=== PATIENT | male | born 1960 | race Caucasian/White ===

== ENCOUNTER 2021-03-17 23:36 | Inpatient (IN) | payer OTHER, SELFPAY ==
[2021-03-17] VITALS (7 sets, daily range): BP systolic 107–114; BP diastolic 78–79; PULSE 118–125; RESP 24–37; TEMP 36.6; O2SAT 69–87
--- NOTE | ~2021-03-17 | XR_ITS ---
XR chest 1V portable 04/02/2021 05:16 Indication: Respiratory failure Procedure: AP portable chest Comparison: Comparison to multiple prior studies sequentially, with oldest reviewed study dated 03/29. Findings: Tracheostomy tube present. Heart size is normal. No significant change to bilateral airspac e disease, right greater than left. No significant change to bandlike opacity in the right midlung. P ossible small effusions. No pneumothorax. No acute osseous abnormality. Impression: 1: No significant interval change. Reviewed, dictated and finalized at location A. Impression: 1: No significant interval change.
--- NOTE | ~2021-03-17 | XR_ITS ---
EXAMINATION: XR chest 1V portable EXAM DATE: 03/27/2021 05:15 INDICATION: EXAMINATION: XR chest 1V portable EXAM DATE: 03/27/2021 05:15 INDICATION: Pneumonia. Respiratory failure. TECHNIQUE: Portable AP frontal chest x-ray was obtained. Comparison is made to prior examination from 03/25, 03/26. FINDINGS: Endotracheal tube tip is 3-4 centimeters above the damián. There is a right IJ venous line in position. There is a nasogastric tube seen with tip collimated off the study, but below the left hemidiaphragm. There is moderate right upper lobe airspace disease, smaller amount in lower lung zones, consistent w ith pneumonia. There is likely right apical bullous disease. Small to moderate right, small left pleu ral effusions. There is no pneumothorax suspected. Borderline enlarged heart size. The bones and soft tissues are unremarkable. Stable or mild interval improvement in right lung opacity compared to yesterday. IMPRESSION: 1. Line and tube(s) in position. 2. Moderate right upper lobe predominant pneumonia. 3. Pleural effusions right greater than left. Reviewed, dictated and finalized at location A.
--- NOTE | ~2021-03-17 | XR_ITS ---
XR chest 1V portable 04/01/2021 05:28 Indication: Respiratory failure Procedure: AP portable chest Comparison: Comparison to multiple prior studies sequentially, with oldest reviewed study dated 03/28. Findings: Borderline heart size. Extensive bilateral airspace disease with bandlike consolidation rig ht midlung zone. Right pleural effusion unchanged. Tracheostomy tube present. Right IJ central line t ip in the SVC. No pneumothorax. Impression: 1: No significant change to extensive bilateral consolidation allowing for difference in technique. D ifferential diagnosis includes pneumonia and/or edema. Reviewed, dictated and finalized at location A. Impression: 1: No significant change to extensive bilateral consolidation allowing for diff erence in technique. Differential diagnosis includes pneumonia and/or edema.
--- NOTE | ~2021-03-17 | XR_ITS ---
XR chest 1V portable 03/30/2021 05:36 Indication: Respiratory failure Procedure: AP portable chest Comparison: Comparison to multiple prior studies sequentially, with oldest reviewed study dated 03/26. Findings: Endotracheal tube tip 4.9 cm above the damián. NG tube in the stomach. Central line tip in the SVC. Unchanged bandlike opacity right mid lung, likely atelectasis/scarring and/or loculated effu sharmila. Heart size is normal. Bilateral diffuse interstitial infiltrates. Layering right pleural effusi on. No pneumothorax. Overall, no significant change. Impression: 1: Diffuse bilateral interstitial infiltrates which may represent edema or pneumonia. Unchanged bandl lisa opacity right midlung, most likely combination of loculated effusion, atelectasis and/or scarring . Reviewed, dictated and finalized at location A. Impression: 1: Diffuse bilateral interstitial infiltrates which may represent edema or pneu monia. Unchanged bandlike opacity right midlung, most likely combination of loc ulated effusion, atelectasis and/or scarring.
--- NOTE | ~2021-03-17 | XR_ITS ---
XR chest 1V portable 03/31/2021 05:25 Indication: Respiratory failure Procedure: AP portable chest Comparison: Comparison to multiple prior studies sequentially, with oldest reviewed study dated 03/27. Findings: Interval placement of tracheostomy tube. Right IJ central line tip in the SVC. Stable exten sive bilateral airspace disease with band like consolidation right mid lung. Right pleural effusion. Impression: 1: Stable bilateral airspace consolidation, right greater than left, consistent with pneumonia. 2: Small pleural effusions. Reviewed, dictated and finalized at location A. Impression: 1: Stable bilateral airspace consolidation, right greater than left, consistent with pneumonia. 2: Small pleural effusions.
--- NOTE | ~2021-03-17 | XR_ITS ---
EXAMINATION: XR chest 1V portable EXAM DATE: 03/24/2021 05:15 INDICATION: Respiratory failure. TECHNIQUE: Portable AP frontal chest x-ray was obtained. Comparison is made to prior examination from 03/22, 03/23. FINDINGS: Endotracheal tube tip is 4 centimeters above the damián. There is a right IJ venous line i n position. There is a nasogastric tube seen with tip collimated off the study, but below the left he midiaphragm. There is moderate right upper lobe airspace disease, smaller amount in lower lung zones, consistent w ith pneumonia. There may be right apical bullous disease. Small to moderate right, small left pleural effusions. There is no pneumothorax suspected. Borderline heart size. The bones and soft tissues are unremarkable. There is no significant interval change. IMPRESSION: 1. Line and tube(s) in position. 2. Moderate right upper lobe predominant pneumonia. 3. Pleural effusions right greater than left. Reviewed, dictated and finalized at location A.
--- NOTE | ~2021-03-17 | XR_ITS ---
XR chest 1V portable 03/29/2021 05:15 Indication: Respiratory failure. Pneumonia. Procedure: AP portable chest Comparison: Comparison to multiple prior studies sequentially, with oldest reviewed study dated 05/25. Findings: Endotracheal tube 5.4 cm above the damián. Tube in the stomach. Right IJ central line tip i n the SVC. Heart size normal. Extensive bilateral airspace disease. Bilateral pleural effusions, righ t greater than left. No pneumothorax. Impression: 1: Extensive bilateral airspace disease unchanged, consistent with pneumonia. 2: Bilateral pleural effusions, right greater than left. Reviewed, dictated and finalized at location A. Impression: 1: Extensive bilateral airspace disease unchanged, consistent with pneumonia. 2: Bilateral pleural effusions, right greater than left.
--- NOTE | ~2021-03-17 | XR_ITS ---
EXAMINATION: XR chest 1V portable EXAM DATE: 03/25/2021 05:19 INDICATION: Respiratory failure. TECHNIQUE: Portable AP frontal chest x-ray was obtained. Comparison is made to prior examination from 03/23, 03/24. FINDINGS: Endotracheal tube tip is 4 centimeters above the damián. There is a right IJ venous line i n position. There is a nasogastric tube seen with tip collimated off the study, but below the left he midiaphragm. There is moderate right upper lobe airspace disease, smaller amount in lower lung zones, consistent w ith pneumonia. There may be right apical bullous disease. Small to moderate right, small left pleural effusions. There is no pneumothorax suspected. Borderline heart size. The bones and soft tissues are unremarkable. Mild interval improvement in right lung opacity compared to yesterday. IMPRESSION: 1. Line and tube(s) in position. 2. Moderate right upper lobe predominant pneumonia. 3. Pleural effusions right greater than left. Reviewed, dictated and finalized at location A.
--- NOTE | ~2021-03-17 | XR_ITS ---
EXAMINATION: XR chest 1V portable EXAM DATE: 03/22/2021 05:18 INDICATION: Shortness of breath. TECHNIQUE: Portable AP frontal chest x-ray was obtained. Comparison is made to prior examination from 03/21, 03/20. FINDINGS: Endotracheal tube tip is 4 centimeters above the damián. There is a right IJ venous line i n position. There is a nasogastric tube seen with tip collimated off the study, but below the left he midiaphragm. Again there is extensive right upper lobe airspace disease, smaller amount in lower lung zones, consi stent with pneumonia. There may be right apical bullous disease. Small to moderate right, small left pleural effusions. There is no pneumothorax suspected. The cardiomediastinal silhouette is promine nt but magnified on this AP technique. The bones and soft tissues are unremarkable. There is no significant interval change compared to prior exam. IMPRESSION: 1. Line and tube(s) in position. 2. Extensive right upper lobe predominant pneumonia. 3. Pleural effusions right greater than left. Reviewed, dictated and finalized at location A.
--- NOTE | ~2021-03-17 | XR_ITS ---
EXAMINATION: XR abdomen NG/feed tube rechec EXAM DATE: 03/24/2021 14:23 INDICATION: Orogastric tube recheck. TECHNIQUE: Frontal projection(s) of the abdomen for interpretation. Comparison is made to prior exami nation from 03/18/2021. FINDINGS: Feeding tube tip and side-port both project over gastric bubble, expected position. Modera te amount of upper abdominal colonic stool and gas. Pleural effusions and airspace disease. Endotrach eal tube and right IJ line. IMPRESSION: 1. Feeding tube in position. Reviewed, dictated and finalized at location A.
--- NOTE | ~2021-03-17 | XR_ITS ---
EXAMINATION: XR chest ET placement, XR abdomen NG/feed tube insert DATE: 03/18/2021 05:21 INDICATION: Endotracheal tube placement. Nasogastric tube placement. TECHNIQUE: 1. Frontal view of the chest was obtained. 2. AP semiupright view of the abdomen was obtained. COMPARISON: Chest radiograph and CT dated 03/18/[address] dated 12/24/2004 FINDINGS: Chest: Endotracheal tube tip 4.1 cm above the damián. Right internal jugular central venous catheter with di stal tip in the midsuperior vena cava. Emphysema with bullous changes at the right apex. Dense consolidation with air bronchograms in the ri ght upper lobe and in the medial right lower lobe. Mild streaky opacities at the bilateral lung bases . Calcified left upper lobe nodule consistent with old granulomatous disease. No pneumothorax or pleu ral effusion. The cardiomediastinal silhouette is normal. Abdomen: Nasogastric tube tip in the body of the stomach with proximal side-port near the gastroesophageal lance ction. Large amount of stool scattered throughout the colon. No dilated loops of gas-filled small bow el to suggest obstruction. Chronic rim calcified splenic lesion below the left hemidiaphragm likely s equela of old splenic insult. IMPRESSION: 1. Lines and tubes in expected position. Consider advancement of the nasogastric tube by 3-[address] fiordaliza the proximal side-port below the level of the gastroesophageal junction. 2. Dense consolidation in the right upper lobe and less dense opacities in the bilateral lower lung z ones consistent with multifocal pneumonia. 3. Emphysema. Reviewed, dictated and finalized at location A. IMPRESSION: 1. Lines and tubes in expected position. Consider advancement of the nasogastri c tube by 3-[address] the proximal side-port below the level of the gastroe sophageal junction. 2. Dense consolidation in the right upper lobe and less dense opacities in the bilateral lower lung zones consistent with multifocal pneumonia. 3. Emphysema.
--- NOTE | ~2021-03-17 | XR_ITS ---
EXAMINATION: XR chest 1V portable EXAM DATE: 03/26/2021 05:49 INDICATION: Pneumonia. Respiratory failure. TECHNIQUE: Portable AP frontal chest x-ray was obtained. Comparison is made to prior examination from 03/24, 03/23. FINDINGS: Endotracheal tube tip is 4-5 centimeters above the damián. There is a right IJ venous line in position. There is a nasogastric tube seen with tip collimated off the study, but below the left hemidiaphragm. There is moderate right upper lobe airspace disease, smaller amount in lower lung zones, consistent w ith pneumonia. There is likely right apical bullous disease. Small to moderate right, small left pleu ral effusions. There is no pneumothorax suspected. Borderline enlarged heart size. The bones and soft tissues are unremarkable. Mild interval improvement in right lung opacity compared to yesterday. IMPRESSION: 1. Line and tube(s) in position. 2. Moderate right upper lobe predominant pneumonia, mild improvement. 3. Pleural effusions right greater than left. Reviewed, dictated and finalized at location A.
--- NOTE | ~2021-03-17 | XR_ITS ---
EXAMINATION: XR chest 1V portable EXAM DATE: 03/28/2021 06:00 INDICATION: pneumonia EXAMINATION: XR chest 1V portable EXAM DATE: 03/28/2021 06:00 INDICATION: EXAMINATION: XR chest 1V portable EXAM DATE: 03/28/2021 06:00 INDICATION: Pneumonia. Respiratory failure. TECHNIQUE: Portable AP frontal chest x-ray was obtained. Comparison is made to prior examination from 03/26, 03/27. FINDINGS: Endotracheal tube tip is 4 centimeters above the damián. There is a right IJ venous line i n position. There is a nasogastric tube seen with tip collimated off the study, but below the left he midiaphragm. There is moderate right upper lobe airspace disease, smaller amount in lower lung zones, consistent w ith pneumonia. There is likely right apical bullous disease. Small to moderate right, small left pleu ral effusions. There is no pneumothorax suspected. Borderline enlarged heart size. The bones and soft tissues are unremarkable. There is no significant interval change. IMPRESSION: 1. Line and tube(s) in position. 2. Moderate right upper lobe predominant pneumonia. Pleural effusions right greater than left. Reviewed, dictated and finalized at location A.
--- NOTE | ~2021-03-17 | US_ITS ---
EXAMINATION: US art doppler w no ROJAS EXAM DATE: 03/19/2021 15:21 INDICATION: Bilateral lower extremity mottling. Intubated. TECHNIQUE: Segmental pressures and plethysmographic and Doppler waveforms of the brachial and lower e xtremity arteries were obtained. There is no prior study for comparison. FINDINGS: Right and left brachial artery pressures of 94 mm Hg and 114 mm Hg, respectively, are concordant (nor mal difference <= 30 mmHg). RIGHT LEG: The ankle-brachial index (MASOUD) is 1.25 (normal >= 0.9-1). The great toe-brachial index (TBI) is 0.11 (normal >= 0.65). The lower extremity ratios, segmental pressure gradients as follows; Dorsalis pedis: 1.07 (122 mmHg). Posterior tibial: 1.25 (142 mmHg). (Normal gradients <= 20-30 mmHg between adjacent levels on the same leg or the same levels on the two legs). Arterial waveforms are monophasic DP, otherwise biphasic. LEFT LEG: The ankle-brachial index (MASOUD) is 1.20 (normal >= 0.9-1). The great toe-brachial index (TBI) is 0.79 (normal >= 0.65). The lower extremity ratios, segmental pressure gradients as follows; Dorsalis pedis: 0.89 (102 mmHg). Posterior tibial: 1.20 (137 mmHg). (Normal gradients <= 20-30 mmHg between adjacent levels on the same leg or the same levels on the two legs). Arterial waveforms are monophasic DP, otherwise biphasic. IMPRESSION: 1. Right ankle-brachial index 1.25, normal. 2. Left ankle-brachial index 1.20, normal. 3. Severely decreased right toe brachial index. Reviewed, dictated and finalized at location B.
--- NOTE | ~2021-03-17 | XR_ITS ---
EXAMINATION: XR chest 1V portable EXAM DATE: 03/23/2021 05:25 INDICATION: Respiratory failure. TECHNIQUE: Portable AP frontal chest x-ray was obtained. Comparison is made to prior examination from 03/21, 03/22. FINDINGS: Endotracheal tube tip is 5 centimeters above the damián. There is a right IJ venous line i n position. There is a nasogastric tube seen with tip collimated off the study, but below the left he midiaphragm. Again there is moderate right upper lobe airspace disease, smaller amount in lower lung zones, consis tent with pneumonia. There may be right apical bullous disease. Small to moderate right, small left p leural effusions. There is no pneumothorax suspected. Cardiomediastinal silhouette is normal. The bones and soft tissues are unremarkable. Compared to previous examination, mild improvement in the airspace disease and normalization of cardi ac silhouette. IMPRESSION: 1. Line and tube(s) in position. 2. Moderate right upper lobe predominant pneumonia. 3. Pleural effusions right greater than left. Reviewed, dictated and finalized at location A.
--- NOTE | ~2021-03-17 | XR_ITS ---
EXAMINATION: XR chest 1V portable EXAM DATE: 03/21/2021 05:33 INDICATION: Shortness of breath. TECHNIQUE: Portable AP frontal chest x-ray was obtained. Comparison is made to prior examination from 03/20/2021. FINDINGS: Endotracheal tube tip is 3-4 centimeters above the damián. There is a right IJ venous line in position. There is a nasogastric tube seen with tip collimated off the study, but below the left hemidiaphragm. Again there is extensive right upper lobe airspace disease, smaller amount in lower lung zones, consi stent with pneumonia. There may be right apical bullous disease. Small to moderate right, small left pleural effusions. There is no pneumothorax suspected. The cardiomediastinal silhouette is promine nt but magnified on this AP technique. The bones and soft tissues are unremarkable. There is no significant interval change compared to prior exam. IMPRESSION: 1. Line and tube(s) in position. 2. Extensive right upper lobe predominant pneumonia. Reviewed, dictated and finalized at location A.
--- NOTE | ~2021-03-17 | XR_ITS ---
EXAMINATION: XR chest 1V portable DATE: 03/19/2021 05:46 INDICATION: Shortness of breath TECHNIQUE: frontal view of the chest was obtained. COMPARISON: Chest radiograph dated 03/18/2021 FINDINGS: Endotracheal tube tip 4.3 cm above the damián. Right internal jugular central venous catheter with di stal tip at the midsuperior vena cava. Nasogastric tube extends below the left hemidiaphragm with di stal tip collimated off the study. Emphysema. No significant change in airspace opacity in the right upper lobe with dense consolidation with air bronchograms inferiorly along the right minor fissure. New opacities in the right lower natasha g zone suggesting small right pleural effusion with additional associated atelectasis and/or pneumoni a. Unchanged more subtle opacities in the left lower lung zone. Calcified nodule in the left upper chiquita ng zone consistent with old granulomatous disease. No pneumothorax or definitive left pleural effusio n. The cardiomediastinal silhouette is normal. Rim calcified splenic lesion again noted below the lef t hemidiaphragm. IMPRESSION: 1. Bilateral airspace opacities most prominent in the right upper lobe consistent with pneumonia. 2. New small right pleural effusion. 3. Emphysema. Reviewed, dictated and finalized at location A. IMPRESSION: 1. Bilateral airspace opacities most prominent in the right upper lobe consiste nt with pneumonia. 2. New small right pleural effusion. 3. Emphysema.
--- NOTE | ~2021-03-17 | CT_ITS ---
EXAMINATION: CTA chest PE protocol DATE: 03/18/2021 02:43 INDICATION: Dyspnea TECHNIQUE: Computed tomography (CT) pulmonary angiogram of the chest was performed with 100 mL Omnipa que-350 intravenous contrast. Additional 3D reconstructions utilizing coronal maximum intensity proje ction (MIP) were performed. Automated exposure control and iterative reconstruction technique were em ployed. The dose-length product was 830.19 mGy-cm. COMPARISON: None FINDINGS: Excellent contrast opacification of the pulmonary arteries. There is moderate streak artifact from de nse contrast in the superior vena cava and right atrium. There is also moderate scattered respiratory motion artifact most prominent in the mid to lower lung zones which decreases sensitivity in the sub segmental pulmonary arteries of the lower lungs and left lower lobar segmental pulmonary arteries. No pulmonary embolism. Small right pleural effusion. Large region of dense consolidation with air bronc hograms and without volume loss in the right upper lobe consistent with pneumonia. Additional small r egion of consolidation in the bilateral lower lobes also most likely related to pneumonia. Mild to mo derate upper lobe predominant emphysema. Calcified left upper lobe nodule consistent with old granulo matous disease. Heart size is normal. No pericardial effusion. Atherosclerotic coronary artery calcif ication. Thoracic aorta is normal in caliber with no dissection. No pathologically enlarged thoracic lymphadenopathy. Multiple splenic calcific lesions consistent with old granulomatous disease. Rim alcon cified lesion at the cephalad aspect of the spleen likely sequela of chronic splenic insult. Mild tho racic spondylosis. IMPRESSION: 1. No pulmonary embolism. Sensitivity decreased in setting of the segmental and subsegmental pulmonar y arteries in the lower lungs to primarily due to respiratory motion. 2. Multifocal pneumonia most extensive in the right upper lobe and to lesser degree in the bilateral lower lobes. 3. Small right pleural effusion. Reviewed, dictated and finalized at location A. IMPRESSION: 1. No pulmonary embolism. Sensitivity decreased in setting of the segmental and subsegmental pulmonary arteries in the lower lungs to primarily due to respira tory motion. 2. Multifocal pneumonia most extensive in the right upper lobe and to lesser de gree in the bilateral lower lobes. 3. Small right pleural effusion.
--- NOTE | ~2021-03-17 | XR_ITS ---
EXAMINATION: XR chest 1V portable DATE: 03/18/2021 00:30 INDICATION: Shortness of breath TECHNIQUE: frontal view of the chest was obtained. COMPARISON: Chest radiograph dated 01/22/2016 FINDINGS: New large region of consolidation in the right upper lobe abutting the minor fissure. The stents opac ities in the bilateral lower lung zones. Calcified left upper lobe nodule consistent with old granulo matous disease. No pleural effusion or pneumothorax. The cardiomediastinal silhouette is normal. IMPRESSION: 1. Right upper lobe consolidation consistent with pneumonia. Reviewed, dictated and finalized at location A.
--- NOTE | ~2021-03-17 | XR_ITS ---
EXAMINATION: XR chest 1V portable EXAM DATE: 03/20/2021 05:32 INDICATION: Shortness of breath. TECHNIQUE: Portable AP frontal chest x-ray was obtained. Comparison is made to prior examination from 03/19/2021. FINDINGS: Endotracheal tube tip is 3.4 centimeters above the damián. There is a right IJ venous line in position. There is a nasogastric tube seen with tip collimated off the study, but below the left hemidiaphragm. Again there is extensive right upper lobe airspace disease, smaller amount in lower lung zones, consi stent with pneumonia. Small to moderate right, small left pleural effusions. There is no pneumothor ax suspected. The cardiomediastinal silhouette is prominent but magnified on this AP technique. T he bones and soft tissues are unremarkable. There is no significant interval change compared to prior exam. IMPRESSION: 1. Line and tube(s) in position. 2. Extensive right upper lobe predominant pneumonia. Reviewed, dictated and finalized at location A.
--- NOTE | ~2021-03-17 | XR_ITS ---
XR abdomen/kub 1V 04/02/2021 05:16 Indication: Nausea and vomiting Procedure: KUB Comparison: Comparison to multiple prior studies sequentially, with oldest reviewed study dated 12/2020. Findings: Interval placement of gastric tube. Bowel gas pattern nonobstructive. Moderate colonic feca l loading. No abnormal calcifications. No acute osseous abnormality. There is left diaphragmatic calc ifications, possibly previous asbestos exposure. Impression: 1: No acute abdominal abnormality. Reviewed, dictated and finalized at location A. Impression: 1: No acute abdominal abnormality.
--- NOTE | 2021-03-17 23:43 | ECG_ITS ---
Measurements Intervals [place] Rate: 121 P: 56 VT: 132 QRS: 34 QRSD: 105 T: 57 QT: 309 QTc: 440 Interpretive Statements SINUS TACHYCARDIA BASELINE ARTIFACT- I, II, III, AVR, AVL, AVF, V1-V6 ABNORMAL ECG Electronically Signed On 03-18-2021 6:02:38 CDT by Raymon John D.O.
--- NOTE | 2021-03-17 23:50 | ED.GENADULT ---
HPI - General Adult General Chief complaint: Shortness of Breath/Dyspnea Stated complaint: SOB Time Seen by Provider: 03/17/21 23:43 Limitations: altered mental status and clinical condition History of Present Illness HPI narrative: Patient 60-year-old gentleman who presents the emergency department with chief complaint of shortness of breath. Patient reports that he started having shortness of breath this evening and is unable to provide any further history. Patient was found to have a room air pulse ox of 69% and was extremely short of breath with a respiratory rate of 36. Related Data Home Medications Medication Instructions Recorded Confirmed albuterol sulfate INHALATION 03/18/21 fluticasone propion-salmeterol INHALATION 03/18/21 03/18/21 [Wixela Inhub] prednisone 03/18/21 Allergies Allergy/AdvReac Type Severity Reaction Status Date / Time Unable to Assess Allergy Unverified 03/18/21 01:24 Review of Systems Review of Systems: ROS unobtainable: Yes unobtainable due to medical condition and unobtainable due to mental status PMFSH Comments Patient reports that he is on a water pill Otherwise not able to provide history or social history or family history due to critical condition Exam Narrative: Exam Narrative: GENERAL: Ill-appearing in severe respiratory distress. HEAD: Normocephalic, atraumatic. EYES: PERRLA and EOMI. ENT: Nares clear, no rhinorrhea or epistaxis. Mucous membranes moist. NECK: Supple. CHEST: Clear to auscultation. Severe respiratory distress. HEART: Regular rate and rhythm. No murmur heard. Normal peripheral pulses. ABDOMEN: Soft, nontender, nondistended, normal active bowel sounds. EXTREMITIES: Normal range of motion. No edema. SKIN: Warm, dry, no rash. NEURO: Sedate unable to provide history, no focal motor deficits PSYCH: Unable to obtain due to condition Course Course Emergency Course: After starting BiPAP patient is significantly improved at this time he is able to actually carry on some conversation reports that he has history of congestive heart failure but is currently not being treated by a physician. Patient reports he has had increasing shortness of breath and reports that he has had weight gain and peripheral edema. Vital Signs Vital signs: Vital Signs Pulse Rate 122 H 03/17/21 23:36 Respiratory Rate 31 H 03/17/21 23:36 Temperature 36.6 C 03/17/21 23:39 Pulse Rate 123 H 03/18/21 03:28 Respiratory Rate 28 H 03/18/21 03:28 Blood Pressure 100/74 03/18/21 03:09 Pulse Oximetry 99 03/18/21 03:09 Procedures Intubation Intubation #1: Intubation Date: 03/18/21 Intubation Time: 04:05 Time out performed: Yes sedative: Etomidate Mg Given: 20 paralytic: Succinylcholine Mg Given: 100 Laryngoscope: fiber optic video scope Tube Size (cm): 8.0 Method of Intubation: orotracheal Number of Attempts: 2 Tube Secured Depth (cm): 22 Tube Secured Location: teeth Tube Placement Confirmation: visualized tube passing through cords, equal breath sounds bilaterally, no breath sounds over epigastrium and confirmation by capnometry Patient Tolerated Procedure: well Intubation Complications: none Medical Decision Making Vital Signs Vital Signs: Vital Signs Pulse Rate 122 H 03/17/21 23:36 Respiratory Rate 31 H 03/17/21 23:36 Temperature 36.6 C 03/17/21 23:39 Pulse Rate 123 H 03/18/21 03:28 Respiratory Rate 28 H 03/18/21 03:28 Blood Pressure 100/74 03/18/21 03:09 Pulse Oximetry 99 03/18/21 03:09 Lab Data Result diagrams: 03/18/21 00:08 03/18/21 01:08 Labs: Lab Results 03/17/21 03/17/21 03/18/21 Range/Units 23:58 23:58 00:08 WBC 8.0 (4.5-10.0) K/mm3 RBC 4.79 (4.6-6.20) M/mm3 Hgb 14.1 (14.0-18.0) g/dL Hct 43.2 (42.0-52.0) % MCV 90.2 (80-100) fl MCH 29.4 (26-34) pg MCHC 3
[2021-03-17] MEDS: FUROSEMIDE INJ 40 MG/4 ML VIAL IV PUSH (23:56)
[2021-03-18] VITALS (90 sets, daily range): BP systolic 68–121; BP diastolic 55–105; PULSE 73–154; RESP 16–40; TEMP 36.3–36.9; O2SAT 90–100; BMI 27.8
[2021-03-18] MEDS: IPRATROPIUM BR 0.02% INH SOLN 0.5 MG/2.5 ML VIAL INHALATION ×6 (00:03→20:00)
[2021-03-18] MEDS: ALBUTEROL SULFATE NEB 2.5 MG/0.5 ML INH 5 MG INHALATION ×3 (00:04→03:23)
[2021-03-18 00:20] LABS: Alveolar/Arterial O2 Gradient 475.5 mmHg; Fractional Inspired Oxygen 100 %; HCO3 ABG 28.5 mEq/l (22.0-26.0); Oxygen Saturation ABG 99.1 % (95.0-100.0); Oxyhemoglobin 97.3 % THb (90.0-100.0); PCO2 ABG 57.3 mmHg (35.0-45.0); PO2 ABG 180.2 mmHg (80.0-100.0); Total Hemoglobin 14.4 g/dL (12.0-18.0); pH ABG 7.314 (7.350-7.450)
[2021-03-18 00:21] LABS: Device NON-INVASIVE VENT; Modified Allen's Test Pass; Site Drawn RIGHT RADIAL
[2021-03-18 00:22] LABS: Non-Invasive Expiratory Pressure 8 CMH2O; Non-Invasive Inspiratory Pressure 14 CMH2O; Non-Invasive Vent Rate 12 /MIN
[2021-03-18 00:25] LABS: Basophils Percent Auto 0.1 % (0.2-1.2); Eosinophils Percent Auto 0.1 % (0-4.4); Hematocrit 43.2 % (42.0-52.0); Hemoglobin 14.1 g/dL (14.0-18.0); Immature Granulocyte Absolute 0.02 K/mm3 (0.00-0.031); Immature Granulocyte Percent A 0.3 % (0-0.5); Lymphocytes Absolute Auto 0.73 K/mm3 (0.9-3.2); Lymphocytes Percent Auto 9.1 % (18.3-44.2); Mean Corpuscular HGB Conc 32.6 g/dl (32-36); Mean Corpuscular Hemoglobin 29.4 pg (26-34); Mean Corpuscular Volume 90.2 fl (80-100); Mean Platelet Volume 9.2 fl (7.4-10.4); Monocytes Absolute Auto 0.2 K/mm3 (0.1-0.6); Monocytes Percent Auto 2.5 % (2.6-8.5); Neutrophils Percent Auto 87.9 % (45.5-73.1); Platelet Count Result 268 k/mm3 (150-375); Red Blood Count 4.79 M/mm3 (4.6-6.20); Red Cell Distribution Width 15.3 % (11.5-14.5)
[2021-03-18 00:38] LABS: INR 1.3; Partial Thromboplastin Time 29.2 SECONDS (22.3-36.8); Prothrombin Time 17.1 Seconds (11.1-14.7)
[2021-03-18 01:28] LABS: Alanine Aminotransferase 29 U/L (4-50); Albumin Level 3.5 g/dL (3.5-5.1); Alkaline Phosphatase 64 U/L (38-126); Anion Gap 10 mmol/L (8-16); Aspartate Amino Transferase 48 U/L (17-59); Bilirubin,Total 0.5 mg/dL (0.2-1.3); Blood Urea Nitrogen 27 mg/dL (9-20); Calcium 8.8 mg/dL (8.4-10.2); Carbon Dioxide 28 mmol/L (22-30); Chloride 92 mmol/L (98-107); Estimated CRCL calculation 76 ml/min; Estimated Glomerular Filt Rate > 60; Glucose 89 mg/dL (75-110); Potassium 4.2 mmol/L (3.4-5.0); Sodium 130 mmol/L (137-145)
[2021-03-18 01:40] LABS: NT Pro B Type Natriuretic Pept 7560 pg/mL (5-100); Troponin I < 0.012 ng/mL (0.000-0.034)
[2021-03-18] MEDS: fentaNYL CITRATE INJ (*CRX) 100 MCG/2 ML VIAL 50 MCG IV PUSH (02:08)
[2021-03-18] MEDS: LORazepam INJ (*CRX) 2 MG/ML VIAL 0.5 MG IV PUSH ×2 (02:44→03:08)
[2021-03-18 03:09] LABS: Alveolar/Arterial O2 Gradient 383.3 mmHg; Base Excess ABG 1.6 mEq/l (+/-2.0); Fractional Inspired Oxygen 80 %; HCO3 ABG 29.5 mEq/l (22.0-26.0); Oxygen Content ABG 18.5 %vol (16.0-22.0); Oxyhemoglobin 97.1 % THb (90.0-100.0); PO2 ABG 122.6 mmHg (80.0-100.0); PO2 FiO2 Ratio Arterial Blood 1.53 %; Total Hemoglobin 13.4 g/dL (12.0-18.0); pH ABG 7.299 (7.350-7.450)
[2021-03-18 03:11] LABS: Device NON-INVASIVE VENT; Modified Allen's Test Pass; PCO2 ABG 61.4 mmHg (35.0-45.0); Site Drawn RIGHT RADIAL
[2021-03-18 03:12] LABS: Non-Invasive Expiratory Pressure 8 CMH2O; Non-Invasive Inspiratory Pressure 14 CMH2O; Non-Invasive Vent Rate 12 /MIN
[2021-03-18] MEDS: SODIUM CHLORIDE 0.9% IV 1,000 ML 999 ML IV CONT ×4 (03:27→23:30)
[2021-03-18] MEDS: RAPID SEQUENCE INTUBATION KIT 1 EACH (03:45)
[2021-03-18] MEDS: MIDAZOLAM 100MG/NS 100ML(*CRX) 100 MG/100 ML BAG IV CONT (04:32)
[2021-03-18] MEDS: FENTANYL 2,500MCG/NS250ML(*CRX 2,500 MCG/250 ML BAG IV CONT (04:35)
--- NOTE | 2021-03-18 04:43 | PC.NURSE ---
pt intubatedwith a # 8 et tube @ 0346, lip line @ 23 co2 change, lung braun diminished.
--- NOTE | 2021-03-18 05:17 | PM.IMHP ---
H&P: HPI History of Present Illness Date/Time: 03/18/21 05:17 Chief Complaint: altered mental status, sob Narrative: Patient is a 60 yo male who presented to the ED with shortness of breath since this evening. he was found to have pulse oximetry was in 69% on RA and extremely sob wit restpiratory rate of 36, he was initially on bipap however he was then eventually needed to be intubated and placed on ventilator. his cxr showed dense pneumonia on right lung. he also started being hypotensive and is getting started on levophed. he is getting admitted to the ICU for furhter evaluation and management. he is sedated and on vent. no further history could be obtained at this time. Review of Systems Review of Systems: ROS unobtainable: Yes unobtainable due to endotracheal tube, unobtainable due to medical condition and unobtainable due to mental status Meds Home Medications and Allergies Home Medications Medication Instructions Recorded Confirmed Type albuterol sulfate INHALATION 03/18/21 History fluticasone propion-salmeterol INHALATION 03/18/21 03/18/21 History [Wixela Inhub] prednisone 03/18/21 History Allergies Allergy/AdvReac Type Severity Reaction Status Date / Time Unable to Assess Allergy Unverified 03/18/21 01:24 Vital Signs Vital Signs - 24 hr 03/17/21 23:36 03/17/21 23:37 03/17/21 23:39 Temperature 98 F Pulse Rate 122 H 122 H 125 H Respiratory Rate 31 H 36 H 32 H Blood Pressure 107/78 Pulse Oximetry 69 L 87 L 03/17/21 23:40 03/17/21 23:45 03/17/21 23:46 Temperature Pulse Rate 123 H 122 H 124 H Respiratory Rate 25 H 34 H 35 H Blood Pressure 107/78 114/79 Pulse Oximetry 77 L 03/17/21 23:56 03/18/21 00:00 03/18/21 00:01 Temperature Pulse Rate 118 H 119 H 122 H Respiratory Rate 24 H 27 H 30 H Blood Pressure Pulse Oximetry 97 03/18/21 00:02 03/18/21 00:27 03/18/21 00:33 Temperature Pulse Rate 120 H 117 H 116 H Respiratory Rate 21 H 23 H 28 H Blood Pressure 121/105 H Pulse Oximetry 03/18/21 00:42 03/18/21 00:45 03/18/21 00:46 Temperature Pulse Rate 115 H 115 H 117 H Respiratory Rate 27 H 33 H 33 H Blood Pressure 97/68 L 96/66 L Pulse Oximetry 03/18/21 00:55 03/18/21 01:00 03/18/21 01:01 Temperature Pulse Rate 115 H 117 H 118 H Respiratory Rate 30 H 36 H 30 H Blood Pressure 96/66 L 111/83 Pulse Oximetry 90 03/18/21 01:15 03/18/21 01:16 03/18/21 01:27 Temperature Pulse Rate 117 H 118 H 118 H Respiratory Rate 30 H 28 H 26 H Blood Pressure 109/74 Pulse Oximetry 03/18/21 01:30 03/18/21 01:31 03/18/21 02:44 Temperature Pulse Rate 115 H 118 H 120 H Respiratory Rate 27 H 26 H 24 H Blood Pressure 100/77 116/74 93/62 L Pulse Oximetry 92 03/18/21 02:48 03/18/21 03:06 03/18/21 03:09 Temperature Pulse Rate 120 H 126 H 124 H Respiratory Rate 25 H 37 H 33 H Blood Pressure 100/74 Pulse Oximetry 99 03/18/21 03:15 03/18/21 03:16 03/18/21 03:18 Temperature Pulse Rate 122 H 122 H 120 H Respiratory Rate 39 H 32 H 29 H Blood Pressure 76/63 L 80/70 L Pulse Oximetry 03/18/21 03:23 03/18/21 03:28 03/18/21 03:30 Temperature Pulse Rate 121 H 123 H 121 H Respiratory Rate 24 H 28 H 28 H Blood Pressure Pulse Oximetry 03/18/21 03:42 03/18/21 03:45 03/18/21 03:46 Temperature Pulse Rate 116 H 112 H 117 H Respiratory Rate 20 16 21 H Blood Pressure 105/75 119/80 Pulse Oximetry 03/18/21 04:00 03/18/21 04:01 03/18/21 04:16 Temperature Pulse Rate 124 H 125 H 122 H Respiratory Rate 35 H 24 H 24 H Blood Pressure 93/79 L Pulse Oximetry 03/18/21 04:17 03/18/21 04:21 03/18/21 04:22 Temperature Pulse Rate 125 H 121 H 122 H Respiratory Rate 20 16 36 H Blood Pressure 74/63 L 68/55 L 74/62 L Pulse Oximetry 95 03/18/21 04:32 03/18/21 04:35 03/18/21 04:50 Temperature Pulse Rate 118 H 118 H 114 H Respiratory Rate 29 H 29 H 24 H Blood Pressure
[2021-03-18 05:28] LABS: Appearance Urine Clear (Clear); Bilirubin Urine Negative (Negative); Color Urine Yellow (Yellow); Glucose Urine UA Negative (Negative); Ketones Urine Negative (Negative); Leukocyte Esterase Ur Negative LEU/UL (Negative); Nitrate Urine Negative (Negative); Protein Urine Negative (Negative); Specific Grav Ur 1.015 (1.001-1.035); Urobilinogen Urine 0.2 mg/dL (<2.0); pH Urine 5.5 (5.0-9.0)
[2021-03-18 05:35] LABS: Estimated CRCL calculation 84 ml/min; Estimated Glomerular Filt Rate > 60; Lactic Acid Reflex 1.9 mmol/L (0.7-2.1)
--- NOTE | 2021-03-18 05:38 | WPDPROCEDUR ---
Procedures Central Line Placement Right IJ: Central Line Date: 03/18/21 Central Line Time: 05:39 Performed Emergently - Given emergent patient condition, temporal constraints may have precluded informed consent.: Yes Time Out Performed: Yes Patient Position: supine Patient placed on monitor/pulse ox: Yes Provider Prep: mask, sterile gown, sterile gloves, Max. sterile barrier precautions, cap and hand hygiene with conventional soap/water or alcohol based hand rub Central line prep: 2% Chlorhexidine scrub Local anesthesia used: lidocaine 1% Amount of anesthesia used (ml): 3 Sterile US Technique with sterile gel/sterile probe covers: Yes Central line lumen inserted: triple Tamazight: 7 Post Procedure: sutured in place, good blood return, all ports aspirated, flushed, capped, transparent dressing, securement product and aseptic technique maintained throughout procedure Post procedure x-ray: tip of catheter in good position and no pneumothorax seen Patient tolerated procedure: well and no complications Complications: none Additional comments: Dr Lester was present throughout the entire procedure performed to supervise.
[2021-03-18 05:39] LABS: Add Urine Microscopic? YES; Blood Urine Trace (Negative); RBC Urine 0-2 /hpf (0-2); WBC Urine 0-3 /hpf
[2021-03-18 06:18] LABS: Alveolar/Arterial O2 Gradient 546.3 mmHg; Base Excess ABG 0.5 mEq/l (+/-2.0); Carboxyhemoglobin 0.1 % THb (0-2.0); Fractional Inspired Oxygen 100 %; HCO3 ABG 28.5 mEq/l (22.0-26.0); Methemoglobin ABG 0.4 %THb (0-1.5); Oxygen Content ABG 18.6 %vol (16.0-22.0); Oxygen Saturation ABG 97.1 % (95.0-100.0); Oxyhemoglobin 96.8 % THb (90.0-100.0); PO2 ABG 105.7 mmHg (80.0-100.0); PO2 FiO2 Ratio Arterial Blood 1.06 %; Reduced Hemoglobin 2.7 %THb (0-5.0); Total Hemoglobin 13.6 g/dL (12.0-18.0)
[2021-03-18 06:19] LABS: pH ABG 7.287 (7.350-7.450)
[2021-03-18 06:20] LABS: Arterial Blood Gas Vent Mode CMV; Arterial Blood Gas Ventilator rate 16 /MIN; Device VENTILATOR; Modified Allen's Test Pass; Site Drawn RIGHT RADIAL
[2021-03-18 06:21] LABS: Arterial Blood Gas PEEP 7 cmH2O; Arterial Blood Gas Tidal Volume 450 ml
--- NOTE | 2021-03-18 06:28 | ADMGEN ---
This patient, Juvenal Link, was admitted to Intensive Care Unit-4. Patient/family oriented to hospital policies and general routines including ID bracelet, bed and alarms, visiting hours, pain management, procedures, bathroom and other care routines, personal items, smoking policy, room service/diet, and visiting hours. Information on how to activate the Rapid Response Team has been discussed. Patient/Family are encouraged to report perceived risks to care and to ask questions if they do not understand what they are told or what they should do.
[2021-03-18] MEDS: NOREPINEPHRINE 8 MG/D5W 250 ML 8 MG/250 ML BAG 18.75 MG IV CONT (06:30)
[2021-03-18] MEDS: CRASH CART LOCKS 2 EACH XX (06:31)
[2021-03-18] MEDS: CENTRAL LINE FLUSH 10 ML IV PUSH ×4 (06:31→22:35)
--- NOTE | 2021-03-18 08:25 | WPDCNINT ---
Assessment and Plan Assessment and plan (1) Acute respiratory failure: Code(s): J96.00 - Acute respiratory failure, unspecified whether with hypoxia or hypercapnia Status: Acute Assessment and Plan: Acute Respiratory failure secondary to community-acquired pneumonia and baseline COPD Continue full mechanical ventilation support to prevent hypoxemia/hypercarbia and end organ damage. ABG and CT chest reviewed and will repeat in am. Low tidal volume ventilation strategy to prevent volutrauma Increased respiratory to 22 and PEEP to 8. Wean FiO2 Add Bronchodilators Hydrocortisone (2) Community acquired pneumonia: Qualifiers: Laterality: right Lung location: unspecified part of lung Qualified Code(s): J18.9 - Pneumonia, unspecified organism Code(s): J18.9 - Pneumonia, unspecified organism Status: Acute Assessment and Plan: Currently on empiric vancomycin azithromycin and Rocephin Sputum and blood culture sent Urine Legionella and pneumococcal antigen pending (3) Suspected COVID-19 virus infection: Code(s): Z20.822 - Contact with and (suspected) exposure to COVID-19 Status: Acute Assessment and Plan: COVID-19 suspected although clinical picture not consistent SARS-CoV-2 PCR sent and results pending Patient is in Airborne, Droplet and Contact Isolation (4) Septic shock: Code(s): A41.9 - Sepsis, unspecified organism; R65.21 - Severe sepsis with septic shock Status: Acute Assessment and Plan: Patient was given 1 L saline bolus in ED and after intubation and sedation patient blood pressure dropped Patient was started on Levophed Lactate is normal I will give another 1 L of saline bolus. Continue IV fluids Continue Levophed Add hydrocortisone May need to add vasopressin (5) Elevated brain natriuretic peptide (BNP) level: Code(s): R79.89 - Other specified abnormal findings of blood chemistry Status: Acute Assessment and Plan: Suspect right heart failure from pulmonary hypertension from chronic COPD Conservative IV fluids Check echocardiogram (6) Hyponatremia: Code(s): E87.1 - Hypo-osmolality and hyponatremia Status: Acute Assessment and Plan: Normal saline Monitor sodium Additional Plan DVT prophylaxis -add Lovenox Stress ulcer prophylaxis -Pepcid Nutrition -start Tube Feeds Code Status - Full Code Total Critical Care Time - 35 minutes Due to a high probability of clinically significant, life threatening deterioration, the patient required my highest level of preparedness to intervene emergently and I personally spent this critical care time directly and personally managing the patient. This critical care time included obtaining a history; examining the patient; pulse oximetry; ordering and review of studies; arranging urgent treatment with development of a management plan; evaluation of patient's response to treatment; frequent reassessment; and discussions with other providers. It was exclusive of separately billable procedures and treating other patients and teaching time. Please see Assessment and Plan section and the rest of the note for further information on patient assessment and treatment Manager Mall Consult Note Consult date: 03/18/21 Time Seen: 07:45 HPI: Juvenal Link is a 60 year old male with unknown past medical history except COPD and CHF who presented to the emergency department last night with chief complaint of shortness of breath. His symptoms had started yesterday evening and due to respiratory distress he was unable to provide detailed history. He was found to be hypoxic tachypneic and in respiratory distress. BiPAP was tried but did not help. Patient had to be emergently intubated in the ER. Post intubation patient was sedated. Right IJ central venous catheter was placed and patient was started on Levophed History obtained from chart and Physician sign out. Pt intubated an
[2021-03-18] MEDS: ALBUTEROL SULFATE NEB 2.5 MG/0.5 ML INH INHALATION ×3 (08:35→20:00)
[2021-03-18] MEDS: SODIUM CHLORIDE 0.9% IV 1,000 ML 100 ML IV CONT ×2 (09:03→21:00)
[2021-03-18] MEDS: ENOXAPARIN 40 MG/0.4 ML SYRINGE SUB-Q (09:03)
[2021-03-18] MEDS: FAMOTIDINE 20 MG/2 ML VIAL IV PUSH ×2 (09:04→22:34)
--- NOTE | 2021-03-18 09:52 | ECG_ITS ---
Measurements Intervals [place] Rate: 129 P: SD: 0 QRS: 43 QRSD: 96 T: 54 QT: 295 QTc: 433 Interpretive Statements ATRIAL FIBRILLATION WITH RAPID VENTRICULAR RESPONSE BASELINE ARTIFACT- II, III, AVR, AVL, AVF, V1-V6 ABNORMAL ECG Electronically Signed On 03-18-2021 15:51:56 CDT by Raymon John D.O.
[2021-03-18] MEDS: AMIODARONE 150 MG/D5W 100 ML 150 MG/100 ML BAG 600 MG IV CONT (10:13)
[2021-03-18] MEDS: AMIODARONE 360 MG/D5W 200 ML 360 MG/200 ML BAG 33.33 MG IV CONT (10:14)
--- NOTE | 2021-03-18 10:47 | PCDIET ---
Suggested goal of 75mL/hr Jevity 1.2 will provide 1980kcal, 91g protein and 1331mL free water over 22 hours/day.
[2021-03-18 11:23] LABS: Alveolar/Arterial O2 Gradient 457.5 mmHg; Base Excess ABG 0.6 mEq/l (+/-2.0); Fractional Inspired Oxygen 80 %; HCO3 ABG 26.6 mEq/l (22.0-26.0); Oxygen Content ABG 17.8 %vol (16.0-22.0); Oxygen Saturation ABG 90.9 % (95.0-100.0); Oxyhemoglobin 91.6 % THb (90.0-100.0); PO2 ABG 62.5 mmHg (80.0-100.0); PO2 FiO2 Ratio Arterial Blood 0.78 %; Total Hemoglobin 13.8 g/dL (12.0-18.0); pH ABG 7.361 (7.350-7.450)
[2021-03-18 11:24] LABS: Arterial Blood Gas PEEP 8 cmH2O; Arterial Blood Gas Tidal Volume 450 ml; Arterial Blood Gas Vent Mode CMV; Arterial Blood Gas Ventilator rate 22 /MIN; Device VENTILATOR; Modified Allen's Test Pass; Site Drawn RIGHT RADIAL
[2021-03-18] MEDS: MIDAZOLAM HCL (*CRX) 2 MG/2 ML VIAL 4 MG (11:33)
[2021-03-18] MEDS: MIDAZOLAM 100MG/NS 100ML(*CRX) 100 MG/100 ML BAG 6 MG IV CONT (11:49)
[2021-03-18] MEDS: ASPIRIN 325 MG TABLET PO (11:53)
[2021-03-18] MEDS: HYDROCORTISONE SODIUM SUCCINATE 100 MG/2 ML VIAL IV PUSH ×3 (11:55→22:34)
[2021-03-18 12:27] LABS: Glucose Point of Care 79 mg/dl (65-105)
[2021-03-18] MEDS: VASOPRESSIN INJ 100 UNITS in DEXTROSE 5% 95 ML IV CONT (13:00)
[2021-03-18] MEDS: dexmedeTOMIDine 400 MCG/100 ML 400 MCG/100 ML BAG IV CONT (13:03)
[2021-03-18] MEDS: AMIODARONE 360 MG/D5W 200 ML 360 MG/200 ML BAG 16.67 MG IV CONT (15:53)
[2021-03-18] MEDS: NOREPINEPHRINE 8 MG/D5W 250 ML 8 MG/250 ML BAG 22.5 MG IV CONT (17:31)
[2021-03-18] MEDS: INSULIN ASPART (*BKC) 100 UNITS/ML SUB-Q (17:39)
[2021-03-18 18:10] LABS: Glucose Point of Care 203 mg/dl (65-105)
[2021-03-18 18:10] LABS: Glucose Point of Care 214 mg/dl (65-105)
[2021-03-18 18:42] LABS: SARS-CoV-2 RNA PCR Negative
--- NOTE | 2021-03-18 19:17 | PM.EVENT ---
Event Note Event Note Event Note: Patient admitted by hospitalist this morning. Follow-up rounding Patient remains intubated now requiring 3 sedating agents to overcome his agitation this morning He remains on IV antibiotic therapy as well as requiring vasopressors. Patient is critically ill and Anticipate patient to remain in ICU will see him in the morning.
[2021-03-18] MEDS: FENTANYL 2,500MCG/NS250ML(*CRX 2,500 MCG/250 ML BAG 17.5 MCG IV CONT (21:03)
[2021-03-18 22:17] LABS: Lactic Acid Reflex 3.2 mmol/L (0.7-2.1)
[2021-03-18] MEDS: MIDAZOLAM 100MG/NS 100ML(*CRX) 100 MG/100 ML BAG 8 MG IV CONT (22:35)
[2021-03-19] VITALS (50 sets, daily range): BP systolic 89–141; BP diastolic 41–87; PULSE 66–89; RESP 19–30; TEMP 36.2–36.8; O2SAT 90–100
--- NOTE | 2021-03-19 | ECHO_ITS ---
Patient Info Name: Juvenal Link Age: 60 years : 1960 Gender: Male Ht: 72 in Wt: 200 lbs BSA: 2.16 m2 HR: 73 bpm BP: 109 / 56 mmHg Heart Rhythm: Sinus Rhythm Technical Quality: Fair Exam Date: 03/19/2021 9:43 AM Exam Location: [facility] [place] Patient Status: Inpatient Admit Date: 03/18/2021 Staff Ordering Physician: Rashad Luna MD Manager Bakery: Karen Arnold RDCS Attending Provider: Rashad Luna MD Exam Type: CA echo doppler color flow Study Info Indications R06.00 - Dyspnea, unspecified Complete two-dimensional, color flow and Doppler transthoracic echocardiogram is performed. Summary 1. Complete two-dimensional, color flow and Doppler transthoracic echocardiogram is performed. 2. Left ventricular chamber dimension is mildly enlarged. 3. Left ventricular systolic function is severely reduced, estimated at 20-25%. 4. There is no increased left ventricular wall thickness. 5. Left ventricular septal wall motion is abnormal with septal motion related to bundle branch block. 6. The left ventricular diastolic function is grade I diastolic dysfunction. 7. Global hypokinesis of the left ventricle. 8. Right ventricular chamber dimension is severely enlarged. 9. Right ventricular systolic function is reduced. 10. Left atrial chamber dimension is mildly enlarged. 11. Right atrial chamber dimension is moderately enlarged. 12. There is moderate aortic valve sclerosis. 13. There is moderate mitral valve regurgitation. 14. There is mild to moderate tricuspid valve regurgitation. 15. Mild pulmonary hypertension, estimated pulmonary arterial systolic pressure is 39 mmHg. 16. There is mild pulmonic regurgitation. 17. The aortic root size at the sinus of Valsalva is mildly dilated. Left Ventricle Left ventricular chamber dimension is mildly enlarged. Left ventricular systolic function is severely reduced, estimated at 20-25%. There is no increased left ventricular wall thickness. Left ventricular septal wall motion is abnormal with septal motion related to bundle branch block. The left ventricular diastolic function is grade I diastolic dysfunction. Global hypokinesis of the left ventricle. Right Ventricle Right ventricular chamber dimension is severely enlarged. Right ventricular systolic function is reduced. Left Atria Left atrial chamber dimension is mildly enlarged. Right Atria Right atrial chamber dimension is moderately enlarged. Atrial Septum Intact interatrial septum visualized by color flow imaging. Aortic Valve The aortic valve is trileaflet. There is moderate aortic valve sclerosis. There is no aortic valve stenosis. There is trace aortic valve regurgitation. Pulmonic Valve The pulmonic valve is normal. There is no pulmonic valve stenosis. There is mild pulmonic regurgitation. Mitral Valve The mitral valve has thickened leaflets. There is no mitral valve stenosis. There is moderate mitral valve regurgitation. Tricuspid Valve The tricuspid valve leaflets are normal. There is no significant tricuspid valve stenosis. There is mild to moderate tricuspid valve regurgitation. Mild pulmonary hypertension, estimated pulmonary arterial systolic pressure is 39 mmHg. Pericardium/Pleural The pericardium appears normal. There is no pericardial effusion. Inferior Vena Cava Dilated inferior vena cava with <50% collapse upon inspiration consistent with elevated right atrial pressure, 15 mmHg. Aorta T
[2021-03-19 01:05] LABS: Reflex Lactic Acid Yes or No Add Lactic
[2021-03-19] MEDS: NOREPINEPHRINE 8 MG/D5W 250 ML 8 MG/250 ML BAG 46.88 MG IV CONT (01:50)
[2021-03-19] MEDS: ALBUTEROL SULFATE NEB 2.5 MG/0.5 ML INH INHALATION ×4 (03:00→20:43)
[2021-03-19] MEDS: IPRATROPIUM BR 0.02% INH SOLN 0.5 MG/2.5 ML VIAL INHALATION ×4 (03:00→20:43)
[2021-03-19 05:12] LABS: Hematocrit 38.8 % (42.0-52.0); Hemoglobin 12.4 g/dL (14.0-18.0); Mean Corpuscular Hemoglobin 28.9 pg (26-34); Mean Corpuscular Volume 90.4 fl (80-100); Mean Platelet Volume 9.5 fl (7.4-10.4); Platelet Count Result 299 k/mm3 (150-375); Red Blood Count 4.29 M/mm3 (4.6-6.20); Red Cell Distribution Width 15.1 % (11.5-14.5); White Blood Count 16.7 K/mm3 (4.5-10.0)
[2021-03-19 05:13] LABS: Lactic Acid 3.5 mmol/L (0.7-2.1)
[2021-03-19 05:24] LABS: Anion Gap 9 mmol/L (8-16); Blood Urea Nitrogen 36 mg/dL (9-20); Calcium 7.3 mg/dL (8.4-10.2); Carbon Dioxide 23 mmol/L (22-30); Chloride 96 mmol/L (98-107); Estimated CRCL calculation 64 ml/min; Estimated Glomerular Filt Rate > 60; Glucose 182 mg/dL (75-110); Potassium 4.9 mmol/L (3.4-5.0); Sodium 128 mmol/L (137-145)
[2021-03-19 05:30] LABS: INR 1.4; Prothrombin Time 17.9 Seconds (11.1-14.7)
[2021-03-19 05:31] LABS: Partial Thromboplastin Time 33.1 SECONDS (22.3-36.8)
[2021-03-19 05:52] LABS: Band Neutrophils Percent 17 % (0-6); Lymphocytes Absolute Manual 0.33 K/mm3 (1.1-4.5); Monocytes Absolute Manual 0.83 K/mm3 (0.1-0.90); Monocytes Percent Manual 5 % (3-9); Neutrophils Absolute Manual 15.53 K/mm3 (1.3-6.7); Neutrophils Percent Manual 76 % (46-73); Platelet Estimate Adequate (Adequate); Total Cells Counted 100
[2021-03-19 05:59] LABS: Alveolar/Arterial O2 Gradient 216.7 mmHg; Base Excess ABG -7.6 mEq/l (+/-2.0); Carboxyhemoglobin 0.2 % THb (0-2.0); Fractional Inspired Oxygen 50 %; Methemoglobin ABG 0.2 %THb (0-1.5); Oxygen Saturation ABG 94.7 % (95.0-100.0); Oxyhemoglobin 94.9 % THb (90.0-100.0); PCO2 ABG 48.3 mmHg (35.0-45.0); PO2 ABG 85.5 mmHg (80.0-100.0); PO2 FiO2 Ratio Arterial Blood 1.71 %; Reduced Hemoglobin 4.7 %THb (0-5.0); Total Hemoglobin 16.5 g/dL (12.0-18.0)
[2021-03-19 06:00] LABS: Arterial Blood Gas PEEP 8 cmH2O; Arterial Blood Gas Vent Mode CMV; Arterial Blood Gas Ventilator rate 22 /MIN; Device VENTILATOR; Modified Allen's Test Unable to perform; Site Drawn RIGHT RADIAL; pH ABG 7.236 (7.350-7.450)
[2021-03-19 06:01] LABS: Arterial Blood Gas Tidal Volume 450 ml
[2021-03-19] MEDS: SODIUM CHLORIDE 0.9% IV 1,000 ML 100 ML IV CONT ×2 (06:34→16:16)
[2021-03-19] MEDS: AMIODARONE 360 MG/D5W 200 ML 360 MG/200 ML BAG 16.67 MG IV CONT (06:34)
[2021-03-19 06:56] LABS: Glucose Point of Care 166 mg/dl (65-105)
[2021-03-19] MEDS: SODIUM BICARBONATE 8.4% 50 MEQ/50 ML SYRINGE (07:19)
[2021-03-19] MEDS: HYDROCORTISONE SODIUM SUCCINATE 100 MG/2 ML VIAL IV PUSH ×3 (07:19→20:26)
[2021-03-19] MEDS: CENTRAL LINE FLUSH 10 ML IV PUSH ×4 (08:06→20:26)
[2021-03-19] MEDS: NOREPINEPHRINE 8 MG/D5W 250 ML 8 MG/250 ML BAG 33.75 MG IV CONT (08:46)
[2021-03-19] MEDS: ASPIRIN 325 MG TABLET PO (08:48)
[2021-03-19] MEDS: ENOXAPARIN 40 MG/0.4 ML SYRINGE SUB-Q (08:51)
[2021-03-19] MEDS: FAMOTIDINE 20 MG/2 ML VIAL IV PUSH ×2 (08:51→20:26)
[2021-03-19 10:09] LABS: Creatine Kinase 56 U/L (55-170)
--- NOTE | 2021-03-19 10:40 | WPDINTPN ---
Progress Note: A&P Assessment and Plan (1) Acute respiratory failure: Code(s): J96.00 - Acute respiratory failure, unspecified whether with hypoxia or hypercapnia Status: Acute Assessment and Plan: Acute Respiratory failure secondary to community-acquired pneumonia and baseline COPD Continue full mechanical ventilation support to prevent hypoxemia/hypercarbia and end organ damage. ABG and chest x-ray reviewed and will repeat in am. Low tidal volume ventilation strategy to prevent volutrauma Increased respiratory to 22 and PEEP to 8. Wean FiO2 which is down to 30% today Continue Bronchodilators ,Hydrocortisone (2) Community acquired pneumonia: Qualifiers: Laterality: right Lung location: unspecified part of lung Qualified Code(s): J18.9 - Pneumonia, unspecified organism Code(s): J18.9 - Pneumonia, unspecified organism Status: Acute Assessment and Plan: Currently on empiric vancomycin doxycycline and Rocephin Sputum and blood culture sent Blood culture is growing Gram-positive cocci Urine Legionella and pneumococcal antigen pending (3) Suspected COVID-19 virus infection: Code(s): Z20.822 - Contact with and (suspected) exposure to COVID-19 Status: Acute Assessment and Plan: COVID-19 suspected in ED and PCR was ordered although clinical picture not consistent PCR came back negative and isolation discontinued (4) Septic shock: Code(s): A41.9 - Sepsis, unspecified organism; R65.21 - Severe sepsis with septic shock Status: Acute Assessment and Plan: Patient was given 1 L saline bolus in ED due to concerns of heart failure as patient elevated BNP and lower extremity edema and after intubation and sedation patient blood pressure dropped Patient was started on Levophed, and later vasopressin was added Lactate is elevated Patient has received adequate volume resuscitation and I suspect cardiogenic component to the shock. I suspect patient may have right heart failure ECHO is ordered and will consult Cardiology Patient was given another 1 L of saline bolus overnight. Continue IV fluids Continue Levophed Continue hydrocortisone Patient also converted from AFib to sinus rhythm this morning (5) Elevated brain natriuretic peptide (BNP) level: Code(s): R79.89 - Other specified abnormal findings of blood chemistry Status: Acute Assessment and Plan: Suspect right heart failure from pulmonary hypertension from chronic COPD Conservative IV fluids Pending echocardiogram (6) Hyponatremia: Code(s): E87.1 - Hypo-osmolality and hyponatremia Status: Acute Assessment and Plan: Normal saline Monitor sodium (7) Livedo reticularis: Code(s): R23.1 - Pallor Status: Acute Assessment and Plan: Likely from septic shock CK was checked and was normal Check arterial Dopplers Continue maintaining map Additional Plan DVT prophylaxis -add Lovenox Stress ulcer prophylaxis -Pepcid Nutrition -start Tube Feeds Code Status - Full Code I spoke to patient with an live by phone yesterday and he told me the patient had been feeling sick for few days. He was complaining of shortness of breath cough and also swelling in his legs. Patient states that he does has some of the prescriptions but he is not sure how regularly he takes his medications are sees doctors. Patient also has not been in touch with his son or his . His [id number] told me that he will try to get hold of their contact information and let me know. He also told me the patient does abuse drugs and especially fentanyl. Total Critical Care Time - 40 minutes Due to a high probability of clinically significant, life threatening deterioration, the patient required my highest level of preparedness to intervene emergently and I personally spent this critical care time directly and personally managing the patient. This critical care time included obtaining
--- NOTE | 2021-03-19 10:56 | PCDIET ---
Nutrition Follow-Up Complete: Nutrition Diagnosis: Inadequate oral intake related to oral intubation as evidenced by need for enteral feeding. Nutrition Goal: Patient to meet estimated nutritional needs. Goal in progress. Tube feedings held for residuals of 400-600mL, per RN. MD order to suction x 1 hour, then restart tube feeding at 20mL/hr. Reglan also added. Last recorded weight is 96 kg which is increased from last review. +I/O. Bowel Motility: No documented BM as of yet. Labs Reviewed: WBC (16.7), Hct (12.4), Hct (38.8), Glu (182), BUN (36), Na (128), Ca (7.3), Lactic Acid (3.5) Meds Noted: Versed, Levophed, NS at 100mL/hr, Vancomycin, Albuterol, Amiodarone, Rocephin, Precedex, Pepcid, Fentanyl, Atrovent Additional Notes: No documented skin breakdown. Will continue to monitor with same goal. Nutrition Monitoring and Evaluation: Follow up every Monday/Monday.
[2021-03-19] MEDS: MIDAZOLAM 100MG/NS 100ML(*CRX) 100 MG/100 ML BAG 9 MG IV CONT (10:58)
[2021-03-19] MEDS: FENTANYL 2,500MCG/NS250ML(*CRX 2,500 MCG/250 ML BAG 20 MCG IV CONT ×2 (10:59→22:22)
--- NOTE | 2021-03-19 11:13 | PM.CNCAR ---
Assessment and Plan Assessment and plan (1) Elevated brain natriuretic peptide (BNP) level: Code(s): R79.89 - Other specified abnormal findings of blood chemistry Status: Acute Assessment and Plan: likely has systolic congestive heart failure. Unknown cardiac history. Continue supportive care with pressors as need be. 2D echocardiogram with Doppler ordered and pending. Obviously he is too hypotensive to initiate any heart failure regimen at this point. (2) Community acquired pneumonia: Qualifiers: Laterality: right Lung location: unspecified part of lung Qualified Code(s): J18.9 - Pneumonia, unspecified organism Code(s): J18.9 - Pneumonia, unspecified organism Status: Acute Assessment and Plan: Appears to be strep pneumonia. Continue antibiotics (3) Septic shock: Code(s): A41.9 - Sepsis, unspecified organism; R65.21 - Severe sepsis with septic shock Status: Acute Assessment and Plan: appears to be from strep pneumonia. He does have blood cultures That are already positive. Continue antibiotics and supportive care. (4) Acute respiratory failure: Code(s): J96.00 - Acute respiratory failure, unspecified whether with hypoxia or hypercapnia Status: Acute Assessment and Plan: On the ventilator managed by ICU team (5) Hyponatremia: Code(s): E87.1 - Hypo-osmolality and hyponatremia Status: Acute Assessment and Plan: likely from volume overload. Initiate diuresis when able (6) Atrial fibrillation: Code(s): I48.91 - Unspecified atrial fibrillation Status: Acute Assessment and Plan: new onset and brief. This is likely from his acute illness. Back in sinus rhythm and off amiodarone. No need for full systemic anticoagulation at this point based on the brief episode of AF that he had History of Present Illness History of Present Illness Consult date/time: 03/19/21 11:13 Requesting physician: Wood Dias MD Consult reason: congestive heart failure Reason For Visit: Pneumonia, Respiratory Failure Narrative: date of service 03/19/2021 Reason for consultation CHF History patient is 60-year-old male whose history is predominantly obtained by reviewing the chart record. He is currently intubated and sedated. He came to the hospital because of severe shortness of breath. He was started on BiPAP but became increasingly worsen eventually required intubation. Chest x-ray is consistent with a dense lobar pneumonia and his blood cultures are positive for strep pneumonia. He is requiring a significant amount of pressors including Levophed and vasopressin as well several fluid boluses to maintain an adequate blood pressure. Cardiology consultation was requested because of elevated BNP and history of heart failure as well as a episode of atrial fibrillation yesterday. Yesterday he did go in atrial fibrillation briefly but converted on IV amiodarone. He remains in sinus rhythm at this point. There is a history of drug use but no known recent chest pain, syncope. Shortness of breath started on the day prior to admission. He does have lower extremity edema. Review of Systems Review of Systems: ROS unobtainable: Yes unobtainable due to endotracheal tube and unobtainable due to medical condition Constitutional: Constitutional: Reports weakness Eyes: Eyes: Denies blurry vision ENT: Denies epistaxis Cardiovascular: Cardiovascular: Reports leg edema Respiratory: Respiratory: Reports dyspnea Gastrointestinal: Gastrointestinal: Denies hematochezia Genitourinary: Genitourinary: Denies hematuria Musculoskeletal: Musculoskeletal: Denies arthralgias Integumentary/Breasts: Skin/Breast: Denies dry skin Neurologic: Denies headache(s) Psychiatric: Psychiatric: Reports no additional psychiatric complaints Endocrine: Endocrine: Denies excessive sweating Hematologic/Lymphatic: Hematologic/
[2021-03-19 11:35] LABS: Glucose Point of Care 163 mg/dl (65-105)
[2021-03-19] MEDS: METOCLOPRAMIDE HCL 10 MG/10 ML SOLN UDC 5 MG FEED TUBE ×2 (12:15→17:28)
[2021-03-19 14:37] LABS: Reflex Lactic Acid Yes or No Add Lactic
--- NOTE | 2021-03-19 14:53 | PM.IMPN ---
Progress Note: A&P Assessment and Plan (1) Community acquired pneumonia: Qualifiers: Laterality: right Lung location: unspecified part of lung Qualified Code(s): J18.9 - Pneumonia, unspecified organism Code(s): J18.9 - Pneumonia, unspecified organism Status: Acute (2) Septic shock: Code(s): A41.9 - Sepsis, unspecified organism; R65.21 - Severe sepsis with septic shock Status: Acute (3) Acute respiratory failure: Code(s): J96.00 - Acute respiratory failure, unspecified whether with hypoxia or hypercapnia Status: Acute (4) Elevated brain natriuretic peptide (BNP) level: Code(s): R79.89 - Other specified abnormal findings of blood chemistry Status: Acute (5) Hyponatremia: Code(s): E87.1 - Hypo-osmolality and hyponatremia Status: Acute (6) Atrial fibrillation: Code(s): I48.91 - Unspecified atrial fibrillation Status: Acute (7) COPD (chronic obstructive pulmonary disease): Code(s): J44.9 - Chronic obstructive pulmonary disease, unspecified Status: Acute (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 levophed started. continue to titrate for a MAP of 65. # right lobe pneumonia: contineuv ancomycin, ceftraixone, azithromycn. check resp culture, pneumonococccal ag, mycoplasma, legionelal. check fro COVID. # Acute respiratory failrue: hypoxic. and hypercarbic. s/p intubation and mechincal ventilation. recheck abg in 2 hrs. adjust vent setting as needed. # Elevated BNP: check echo. tropoin negative. # hyponatremia: monitor. mild. # DVT proph: lovenox # Full code 03/19/21 He patient with a short period of atrial fibrillation seen by cardiology no anticoagulation recommended Believed to have systolic heart failure no heart failure regimen can be initiated at this time as patient is on multiple pressors He continues on IV antibiotic broad-spectrum for pneumonia Blood culture growing Streptococcus pneumoniae Highly probable bacteria in blood she did from lung, anticipate streptococcal pneumoniae pneumonia as source, sputum culture pending COVID has been ruled out negative PCR Patient remains critically ill and requires continued care in the ICU at this time Subjective Date/time seen: 03/19/21 14:53 Intubated and sedated, copious secretions in ETT RN notified Exam Narrative: Exam Narrative: GENERAL:sedated and on ventilator HEAD: Normocephalic, atraumatic. CHEST: Symmetric chest rise, no respiratory distress HEART: tachycardic, regular rhythm. Decreased peripheral pulses, left foot cool to touch. ABDOMEN: Soft, nontender, nondistended, normal active bowel sounds. EXTREMITIES: Normal range of motion. No edema. SKIN: intact, dry, no rash. NEURO: Sedated, unable to assess Objective Data Vital Signs Vital Signs: Vital Signs - 24 hr 03/18/21 15:53 03/18/21 15:55 03/18/21 16:00 Temperature 97.6 F Pulse Rate 109 H 109 H 101 H Respiratory Rate 22 H 22 H Blood Pressure 82/64 L 78/60 L 73/59 L Pulse Oximetry 99 03/18/21 16:01 03/18/21 17:12 03/18/21 17:31 Temperature Pulse Rate 108 H 77 77 Respiratory Rate 22 H Blood Pressure 73/59 L 81/62 L Pulse Oximetry 99 03/18/21 17:32 03/18/21 17:46 03/18/21 17:48 Temperature Pulse Rate 77 78 78 Respiratory Rate 22 H 2
[2021-03-19 15:57] LABS: Lactic Acid 2.1 mmol/L (0.7-2.1)
[2021-03-19] MEDS: NOREPINEPHRINE 8 MG/D5W 250 ML 8 MG/250 ML BAG 24.38 MG IV CONT (16:16)
[2021-03-19 17:24] LABS: Vancomycin Trough 12.6 ug/mL (10.0-20.0)
[2021-03-19] MEDS: MIDAZOLAM HCL (*CRX) 2 MG/2 ML VIAL 4 MG IV PUSH (17:40)
[2021-03-19 17:53] LABS: Glucose Point of Care 128 mg/dl (65-105)
[2021-03-19] MEDS: MIDAZOLAM 100MG/NS 100ML(*CRX) 100 MG/100 ML BAG 10 MG IV CONT (22:23)
[2021-03-19 23:47] LABS: Glucose Point of Care 135 mg/dl (65-105)
[2021-03-20] VITALS (39 sets, daily range): BP systolic 96–160; BP diastolic 58–100; PULSE 64–104; RESP 15–26; TEMP 36.5–36.9; O2SAT 91–100
[2021-03-20 00:01] LABS: Lactic Acid Reflex 1.8 mmol/L (0.7-2.1)
[2021-03-20] MEDS: METOCLOPRAMIDE HCL 10 MG/10 ML SOLN UDC 5 MG FEED TUBE ×4 (00:02→17:58)
[2021-03-20] MEDS: ALBUTEROL SULFATE NEB 2.5 MG/0.5 ML INH INHALATION ×4 (02:10→20:14)
[2021-03-20] MEDS: IPRATROPIUM BR 0.02% INH SOLN 0.5 MG/2.5 ML VIAL INHALATION ×4 (02:10→20:14)
[2021-03-20] MEDS: SODIUM CHLORIDE 0.9% IV 1,000 ML 100 ML IV CONT (02:22)
[2021-03-20] MEDS: CENTRAL LINE FLUSH 10 ML IV PUSH ×4 (04:23→21:15)
[2021-03-20 04:42] LABS: Alveolar/Arterial O2 Gradient 134.2 mmHg; Base Excess ABG 1.2 mEq/l (+/-2.0); Carboxyhemoglobin 0.3 % THb (0-2.0); Fractional Inspired Oxygen 35 %; HCO3 ABG 26.2 mEq/l (22.0-26.0); Methemoglobin ABG 0.2 %THb (0-1.5); Modified Allen's Test Pass; Oxygen Content ABG 16.4 %vol (16.0-22.0); Oxygen Saturation ABG 92.9 % (95.0-100.0); Oxyhemoglobin 91.9 % THb (90.0-100.0); PO2 ABG 65.4 mmHg (80.0-100.0); PO2 FiO2 Ratio Arterial Blood 1.87 %; Reduced Hemoglobin 7.6 %THb (0-5.0); Site Drawn RIGHT RADIAL; Total Hemoglobin 12.7 g/dL (12.0-18.0); pH ABG 7.403 (7.350-7.450)
[2021-03-20 04:43] LABS: Arterial Blood Gas PEEP 8 cmH2O; Arterial Blood Gas Tidal Volume 450 ml; Arterial Blood Gas Vent Mode CMV; Arterial Blood Gas Ventilator rate 22 /MIN; Device VENTILATOR
[2021-03-20 05:06] LABS: Glucose Point of Care 107 mg/dl (65-105)
[2021-03-20] MEDS: NOREPINEPHRINE 8 MG/D5W 250 ML 8 MG/250 ML BAG 15 MG IV CONT (05:11)
[2021-03-20] MEDS: HYDROCORTISONE SODIUM SUCCINATE 100 MG/2 ML VIAL IV PUSH ×3 (05:42→21:12)
[2021-03-20] MEDS: MIDAZOLAM 100MG/NS 100ML(*CRX) 100 MG/100 ML BAG 10 MG IV CONT ×2 (07:36→16:12)
[2021-03-20 08:11] LABS: Basophils Absolute Auto 0.1 K/mm3 (0.0-0.1); Basophils Percent Auto 0.7 % (0.2-1.2); Eosinophils Percent Auto 0.1 % (0-4.4); Hematocrit 34.7 % (42.0-52.0); Hemoglobin 11.4 g/dL (14.0-18.0); Immature Granulocyte Absolute 0.55 K/mm3 (0.00-0.031); Immature Granulocyte Percent A 3.5 % (0-0.5); Lymphocytes Absolute Auto 0.82 K/mm3 (0.9-3.2); Lymphocytes Percent Auto 5.2 % (18.3-44.2); Mean Corpuscular HGB Conc 32.9 g/dl (32-36); Mean Corpuscular Hemoglobin 29.3 pg (26-34); Mean Corpuscular Volume 89.2 fl (80-100); Mean Platelet Volume 9.8 fl (7.4-10.4); Monocytes Absolute Auto 1.5 K/mm3 (0.1-0.6); Monocytes Percent Auto 9.3 % (2.6-8.5); Neutrophils Absolute Auto 12.8 K/mm3 (1.3-6.7); Neutrophils Percent Auto 81.2 % (45.5-73.1); Nucleated Red Blood Cells Perc 0.3 % (0.0-0.2); Platelet Count Result 261 k/mm3 (150-375); Red Blood Count 3.89 M/mm3 (4.6-6.20); Red Cell Distribution Width 15.2 % (11.5-14.5); White Blood Count 15.8 K/mm3 (4.5-10.0)
--- NOTE | 2021-03-20 08:22 | WPDINTPN ---
Progress Note: A&P Assessment and Plan (1) Acute respiratory failure: Code(s): J96.00 - Acute respiratory failure, unspecified whether with hypoxia or hypercapnia Status: Acute Assessment and Plan: Acute Respiratory failure secondary to source pneumococcal community-acquired pneumonia and baseline COPD Continue full mechanical ventilation support to prevent hypoxemia/hypercarbia and end organ damage. ABG and chest x-ray reviewed and will repeat in am. Low tidal volume ventilation strategy to prevent volutrauma Increased respiratory to 22 and PEEP to 8. Wean FiO2 which is down to 30% today Continue Bronchodilators ,Hydrocortisone Sedation holiday today to assess possibility of a weaning trial (2) Community acquired pneumonia: Qualifiers: Laterality: right Lung location: unspecified part of lung Qualified Code(s): J18.9 - Pneumonia, unspecified organism Code(s): J18.9 - Pneumonia, unspecified organism Status: Acute Assessment and Plan: Currently on empiric vancomycin doxycycline and Rocephin Sputum and blood culture sent Blood culture is growing Streptococcus pneumoniae Will discontinue vancomycin. Continue Rocephin and doxy at this time Urine Legionella and pneumococcal antigen pending (3) Suspected COVID-19 virus infection: Code(s): Z20.822 - Contact with and (suspected) exposure to COVID-19 Status: Acute Assessment and Plan: COVID-19 suspected in ED and PCR was ordered although clinical picture not consistent PCR came back negative and isolation discontinued (4) Septic shock: Code(s): A41.9 - Sepsis, unspecified organism; R65.21 - Severe sepsis with septic shock Status: Acute Assessment and Plan: Patient was given 1 L saline bolus in ED due to concerns of heart failure as patient elevated BNP and lower extremity edema and after intubation and sedation patient blood pressure dropped Patient was started on Levophed, and later vasopressin was added Patient has received adequate volume resuscitation and I suspect cardiogenic component to the shock. Will discontinue further IV fluids ECHO echo confirmed EF of 20-25% and dilation of right ventricle and right ventricle systolic failure Continue Levophed Continue hydrocortisone Patient also converted from AFib to sinus rhythm this morning. Patient was not started on inotrope due to concern of recurrence atrial fibrillation (5) Systolic heart failure: Code(s): I50.20 - Unspecified systolic (congestive) heart failure Status: Acute Assessment and Plan: Summary 1. Complete two-dimensional, color flow and Doppler transthoracic echocardiogram is performed. 2. Left ventricular chamber dimension is mildly enlarged. 3. Left ventricular systolic function is severely reduced, estimated at 20-25%. 4. There is no increased left ventricular wall thickness. 5. Left ventricular septal wall motion is abnormal with septal motion related to bundle branch block. 6. The left ventricular diastolic function is grade I diastolic dysfunction. 7. Global hypokinesis of the left ventricle. 8. Right ventricular chamber dimension is severely enlarged. 9. Right ventricular systolic function is reduced. 10. Left atrial chamber dimension is mildly enlarged. 11. Right atrial chamber dimension is moderately enlarged. 12. There is moderate aortic valve sclerosis. 13. There is moderate mitral valve regurgitation. 14. There is mild to moderate tricuspid valve regurgitation. 15. Mild pulmonary hypertension, estimated pulmonary arterial systolic pressure is 39 mmHg. 16. There is mild pulmonic regurgitation. 17. The aortic root size at the sinus of Valsalva is mildly dilated. Holding further IV fluids. 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
[2021-03-20 08:29] LABS: Alanine Aminotransferase 256 U/L (4-50); Albumin Level 2.5 g/dL (3.5-5.1); Alkaline Phosphatase 79 U/L (38-126); Anion Gap 6 mmol/L (8-16); Aspartate Amino Transferase 208 U/L (17-59); Bilirubin,Total 0.3 mg/dL (0.2-1.3); Blood Urea Nitrogen 22 mg/dL (9-20); Calcium 7.9 mg/dL (8.4-10.2); Carbon Dioxide 28 mmol/L (22-30); Chloride 100 mmol/L (98-107); Estimated CRCL calculation 94 ml/min; Estimated Glomerular Filt Rate > 60; Glucose 116 mg/dL (75-110); Magnesium 2.3 mg/dL (1.6-2.3); Potassium 3.3 mmol/L (3.4-5.0); Sodium 134 mmol/L (137-145)
[2021-03-20] MEDS: ASPIRIN 325 MG TABLET PO (08:36)
[2021-03-20] MEDS: MIDAZOLAM HCL (*CRX) 2 MG/2 ML VIAL 4 MG IV PUSH (08:36)
[2021-03-20] MEDS: FAMOTIDINE 20 MG/2 ML VIAL IV PUSH ×2 (08:37→21:12)
[2021-03-20] MEDS: ENOXAPARIN 40 MG/0.4 ML SYRINGE SUB-Q (08:37)
--- NOTE | 2021-03-20 09:02 | PC.NURSE ---
[facility] flyer was placed with patient's belongings within the cardiac admission folder as patient is intubated at this time.
--- NOTE | 2021-03-20 09:35 | PC.NURSE ---
pt back in a-fib, Dr. Dias notified and was told to of today's k+ level, new orders recieved
[2021-03-20] MEDS: POTASSIUM CHLORIDE 20 MEQ PACKET (FOR LIQUID) 40 MEQ FEED TUBE (09:48)
[2021-03-20] MEDS: KCL 20 MEQ/SW 100 ML 100 ML 50 MEQ IVPB (09:51)
[2021-03-20 11:35] LABS: Glucose Point of Care 81 mg/dl (65-105)
[2021-03-20] MEDS: FENTANYL 2,500MCG/NS250ML(*CRX 2,500 MCG/250 ML BAG 20 MCG IV CONT (12:27)
--- NOTE | 2021-03-20 14:03 | PM.IMPN ---
Progress Note: A&P Assessment and Plan (1) Community acquired pneumonia: Qualifiers: Laterality: right Lung location: unspecified part of lung Qualified Code(s): J18.9 - Pneumonia, unspecified organism Code(s): J18.9 - Pneumonia, unspecified organism Status: Acute (2) Septic shock: Code(s): A41.9 - Sepsis, unspecified organism; R65.21 - Severe sepsis with septic shock Status: Acute (3) Acute respiratory failure: Code(s): J96.00 - Acute respiratory failure, unspecified whether with hypoxia or hypercapnia Status: Acute (4) Elevated brain natriuretic peptide (BNP) level: Code(s): R79.89 - Other specified abnormal findings of blood chemistry Status: Acute (5) Hyponatremia: Code(s): E87.1 - Hypo-osmolality and hyponatremia Status: Acute (6) Atrial fibrillation: Code(s): I48.91 - Unspecified atrial fibrillation Status: Acute (7) COPD (chronic obstructive pulmonary disease): Code(s): J44.9 - Chronic obstructive pulmonary disease, unspecified Status: Acute (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 levophed started. continue to titrate for a MAP of 65. # right lobe pneumonia: contineuv ancomycin, ceftraixone, azithromycn. check resp culture, pneumonococccal ag, mycoplasma, legionelal. check fro COVID. # Acute respiratory failrue: hypoxic. and hypercarbic. s/p intubation and mechincal ventilation. recheck abg in 2 hrs. adjust vent setting as needed. # Elevated BNP: check echo. tropoin negative. # hyponatremia: monitor. mild. # DVT proph: lovenox # Full code 03/19/21 He patient with a short period of atrial fibrillation seen by cardiology no anticoagulation recommended Believed to have systolic heart failure no heart failure regimen can be initiated at this time as patient is on multiple pressors He continues on IV antibiotic broad-spectrum for pneumonia Blood culture growing Streptococcus pneumoniae Highly probable bacteria in blood she did from lung, anticipate streptococcal pneumoniae pneumonia as source, sputum culture pending COVID has been ruled out negative PCR Patient remains critically ill and requires continued care in the ICU at this time 03/20/2021 No significant change On IV broad-spectrum antibiotic for streptococcal pneumoniae PNA and bacteremia Vent management per sponsorship manager Continue current care Remains critically ill in ICU Subjective Date/time seen: 03/20/21 14:03 No change remains intubated and sedated Exam Narrative: Exam Narrative: GENERAL:sedated and on ventilator HEAD: Normocephalic, atraumatic. CHEST: Symmetric chest rise, no respiratory distress HEART: tachycardic, regular rhythm. Decreased peripheral pulses, left foot cool to touch. ABDOMEN: Soft, nontender, nondistended, normal active bowel sounds. EXTREMITIES: Normal range of motion. No edema. SKIN: intact, dry, no rash. NEURO: Sedated, unable to assess Objective Data Vital Signs Vital Signs: Vital Signs - 24 hr 03/19/21 14:31 03/19/21 14:37 03/19/21 14:39 Temperature Pulse Rate 83 68 68 Respiratory Rate 22 H Blood Pressure 123/76 Pulse Oximetry 94 03/19/21 14:43 03/19/21 15:50 03/19/21 16:00 Temperature 98.0 F Pulse Rate 68 70 69 Respiratory Rate 22 H 22 H Blood Pre
--- NOTE | 2021-03-20 15:21 | PM.PNCARD ---
Progress Note: A&P Assessment and Plan (1) Atrial fibrillation: Code(s): I48.91 - Unspecified atrial fibrillation Status: Acute Assessment and Plan: New onset of AFib secondary to acute illness. Heart rate is controlled on no rate-controlling medications suggesting some AV node disease. Because this is the 2nd episode, and he has no bleeding I do recommend anticoagulation at this point with full-dose Lovenox. Will not resume amiodarone in an attempt pharmacologic cardioversion because of elevated liver enzymes. (2) Systolic heart failure: Code(s): I50.20 - Unspecified systolic (congestive) heart failure Status: Acute Assessment and Plan: Systolic congestive heart failure. Unknown cardiac history. Still too unstable to initiate any heart failure regimen at this point; perhaps tmr.. Has received a lot of IV fluids this admission but appears to be spontaneously diuresing today. (3) Cardiomyopathy: Code(s): I42.9 - Cardiomyopathy, unspecified Status: Acute Assessment and Plan: Four-chamber cardiac enlargement with EF of 20-25%, mod MR and RV hypokinesis. (4) Community acquired pneumonia: Qualifiers: Laterality: right Lung location: unspecified part of lung Qualified Code(s): J18.9 - Pneumonia, unspecified organism Code(s): J18.9 - Pneumonia, unspecified organism Status: Acute Assessment and Plan: Appears to be strep pneumonia. Continue antibiotics (5) Septic shock: Code(s): A41.9 - Sepsis, unspecified organism; R65.21 - Severe sepsis with septic shock Status: Acute Assessment and Plan: appears to be from strep pneumonia. Blood cultures positive for strep pneumonia. Improving, off pressors. Continue antibiotics and supportive care. (6) Acute respiratory failure: Code(s): J96.00 - Acute respiratory failure, unspecified whether with hypoxia or hypercapnia Status: Acute Assessment and Plan: On the ventilator managed by ICU team (7) Hyponatremia: Code(s): E87.1 - Hypo-osmolality and hyponatremia Status: Acute Assessment and Plan: Liikely from volume overload, improved. Hypokalemia treated this morning. Recheck in a.m. Subjective Date/time seen: 03/20/21 15:21 Interval history: Follow-up for paroxysmal atrial fibrillation, with new onset CHF and cardiomyopathy, EF 20-25%. The patient was admitted with pneumonia requiring intubation, and septic shock with strep bacteremia. Date of service 03/20/2021: Patient had brief episode of atrial fibrillation yesterday which resolved. Today he went back and atrial fibrillation this morning with a controlled rate, heart rate 90-100. His vasopressin was discontinued a while back and Levophed weaned off this morning. Remains on ventilator, FiO2 35%. Remains on sedation with fentanyl and Versed. Review of Systems Review of Systems: Narrative: Review of systems was obtained from the patient's nurse and EMR, as per the history. ROS unobtainable: Yes unobtainable due to endotracheal tube, unobtainable due to medical condition and unobtainable due to mental status Gastrointestinal: Gastrointestinal: Denies melena and Denies hematochezia Genitourinary: Genitourinary: Denies hematuria Neurologic: Reports confusion Psychiatric: Psychiatric: Reports confusion Exam Narrative: Exam Narrative: Intubated sedated Const: General: no acute distress HENMT: Mouth: Yes moist mucous membranes Eyes: General: appearance normal, both eyes and all related structures Neck: Neck: supple Resp: Effort & Inspection: normal
[2021-03-20 17:34] LABS: Glucose Point of Care 104 mg/dl (65-105)
[2021-03-20] MEDS: ENOXAPARIN 100 MG/ML SYRINGE SUB-Q (21:14)
[2021-03-20 23:42] LABS: Glucose Point of Care 98 mg/dl (65-105)
[2021-03-21] VITALS (42 sets, daily range): BP systolic 92–123; BP diastolic 57–75; PULSE 65–94; RESP 13–28; TEMP 36.2–36.6; O2SAT 96–100
[2021-03-21] MEDS: METOCLOPRAMIDE HCL 10 MG/10 ML SOLN UDC 5 MG FEED TUBE ×5 (00:14→23:42)
[2021-03-21] MEDS: FENTANYL 2,500MCG/NS250ML(*CRX 2,500 MCG/250 ML BAG 20 MCG IV CONT (01:05)
[2021-03-21] MEDS: MIDAZOLAM 100MG/NS 100ML(*CRX) 100 MG/100 ML BAG 10 MG IV CONT (01:06)
[2021-03-21] MEDS: ALBUTEROL SULFATE NEB 2.5 MG/0.5 ML INH INHALATION ×4 (02:30→19:53)
[2021-03-21] MEDS: IPRATROPIUM BR 0.02% INH SOLN 0.5 MG/2.5 ML VIAL INHALATION ×4 (02:30→19:53)
[2021-03-21 04:40] LABS: Alveolar/Arterial O2 Gradient 89.2 mmHg; Arterial Blood Gas Vent Mode CMV; Arterial Blood Gas Ventilator rate 22 /MIN; Carboxyhemoglobin 0.3 % THb (0-2.0); Device VENTILATOR; Fractional Inspired Oxygen 30 %; HCO3 ABG 30.1 mEq/l (22.0-26.0); Methemoglobin ABG 0.1 %THb (0-1.5); Modified Allen's Test Pass; Oxygen Content ABG 17.6 %vol (16.0-22.0); Oxygen Saturation ABG 94.5 % (95.0-100.0); Oxyhemoglobin 93.1 % THb (90.0-100.0); PCO2 ABG 46.2 mmHg (35.0-45.0); PO2 ABG 70.4 mmHg (80.0-100.0); PO2 FiO2 Ratio Arterial Blood 2.35 %; Reduced Hemoglobin 6.5 %THb (0-5.0); Site Drawn LEFT RADIAL; Total Hemoglobin 13.4 g/dL (12.0-18.0); pH ABG 7.432 (7.350-7.450)
[2021-03-21 04:41] LABS: Arterial Blood Gas PEEP 8 cmH2O; Arterial Blood Gas Tidal Volume 450 ml
[2021-03-21] MEDS: CENTRAL LINE FLUSH 10 ML IV PUSH ×4 (05:20→20:09)
[2021-03-21] MEDS: HYDROCORTISONE SODIUM SUCCINATE 100 MG/2 ML VIAL IV PUSH ×3 (05:54→21:03)
[2021-03-21 06:04] LABS: Hematocrit 37.8 % (42.0-52.0); Hemoglobin 12.2 g/dL (14.0-18.0); Mean Corpuscular HGB Conc 32.3 g/dl (32-36); Mean Corpuscular Hemoglobin 29.3 pg (26-34); Mean Corpuscular Volume 90.6 fl (80-100); Mean Platelet Volume 9.8 fl (7.4-10.4); Platelet Count Result 268 k/mm3 (150-375); Red Blood Count 4.17 M/mm3 (4.6-6.20); Red Cell Distribution Width 15.7 % (11.5-14.5); White Blood Count 11.8 K/mm3 (4.5-10.0)
[2021-03-21 06:19] LABS: Alanine Aminotransferase 190 U/L (4-50); Albumin Level 2.6 g/dL (3.5-5.1); Alkaline Phosphatase 95 U/L (38-126); Anion Gap 1 mmol/L (8-16); Aspartate Amino Transferase 106 U/L (17-59); Bilirubin,Total 0.2 mg/dL (0.2-1.3); Blood Urea Nitrogen 24 mg/dL (9-20); Calcium 8.5 mg/dL (8.4-10.2); Carbon Dioxide 31 mmol/L (22-30); Chloride 108 mmol/L (98-107); Estimated CRCL calculation 106 ml/min; Estimated Glomerular Filt Rate > 60; Glucose 97 mg/dL (75-110); Magnesium 2.4 mg/dL (1.6-2.3); Potassium 4.2 mmol/L (3.4-5.0); Sodium 140 mmol/L (137-145)
[2021-03-21] MEDS: PROPOFOL IV EMULSION 100 ML 14.45 MG IV CONT ×2 (08:11→13:40)
[2021-03-21] MEDS: FAMOTIDINE 20 MG/2 ML VIAL IV PUSH ×2 (08:34→20:09)
[2021-03-21] MEDS: ASPIRIN 325 MG TABLET PO (08:34)
[2021-03-21] MEDS: ENOXAPARIN 100 MG/ML SYRINGE SUB-Q ×2 (08:34→21:03)
--- NOTE | 2021-03-21 08:38 | WPDINTPN ---
Progress Note: A&P Assessment and Plan (1) Acute respiratory failure: Code(s): J96.00 - Acute respiratory failure, unspecified whether with hypoxia or hypercapnia Status: Acute Assessment and Plan: Acute Respiratory failure secondary to source pneumococcal community-acquired pneumonia and baseline COPD Continue full mechanical ventilation support to prevent hypoxemia/hypercarbia and end organ damage. ABG and chest x-ray reviewed and will repeat in am. Low tidal volume ventilation strategy to prevent volutrauma Increased respiratory to 22 and PEEP to 8. Wean FiO2 which is down to 30% today Continue Bronchodilators ,Hydrocortisone Sedation holiday done but patient yes agitated a synchronous with the ventilator. Will transition to propofol and me at Precedex to assist with weaning (2) Community acquired pneumonia: Qualifiers: Laterality: right Lung location: unspecified part of lung Qualified Code(s): J18.9 - Pneumonia, unspecified organism Code(s): J18.9 - Pneumonia, unspecified organism Status: Acute Assessment and Plan: Currently on empiric vancomycin doxycycline and Rocephin Sputum and blood culture sent Blood culture is growing Streptococcus pneumoniae Discontinued vancomycin. Continue Rocephin. Will discontinue doxy after today's dose agile complete 5 days of atypical coverage Urine Legionella and pneumococcal antigen pending (3) Suspected COVID-19 virus infection: Code(s): Z20.822 - Contact with and (suspected) exposure to COVID-19 Status: Acute Assessment and Plan: COVID-19 suspected in ED and PCR was ordered although clinical picture not consistent PCR came back negative and isolation discontinued (4) Septic shock: Code(s): A41.9 - Sepsis, unspecified organism; R65.21 - Severe sepsis with septic shock Status: Acute Assessment and Plan: Patient was given 1 L saline bolus in ED due to concerns of heart failure as patient elevated BNP and lower extremity edema and after intubation and sedation patient blood pressure dropped Patient was started on Levophed, and later vasopressin was added Patient has received adequate volume resuscitation and I suspect cardiogenic component to the shock. Will discontinue further IV fluids ECHO echo confirmed EF of 20-25% and dilation of right ventricle and right ventricle systolic failure Continue Levophed Continue hydrocortisone Patient also converted from AFib to sinus rhythm this morning. Patient was not started on inotrope due to concern of recurrence atrial fibrillation (5) Systolic heart failure: Code(s): I50.20 - Unspecified systolic (congestive) heart failure Status: Acute Assessment and Plan: Summary 1. Complete two-dimensional, color flow and Doppler transthoracic echocardiogram is performed. 2. Left ventricular chamber dimension is mildly enlarged. 3. Left ventricular systolic function is severely reduced, estimated at 20-25%. 4. There is no increased left ventricular wall thickness. 5. Left ventricular septal wall motion is abnormal with septal motion related to bundle branch block. 6. The left ventricular diastolic function is grade I diastolic dysfunction. 7. Global hypokinesis of the left ventricle. 8. Right ventricular chamber dimension is severely enlarged. 9. Right ventricular systolic function is reduced. 10. Left atrial chamber dimension is mildly enlarged. 11. Right atrial chamber dimension is moderately enlarged. 12. There is moderate aortic valve sclerosis. 13. There is moderate mitral valve regurgitation. 14. There is mild to moderate tricuspid valve regurgitation. 15. Mild pulmonary hypertension, estimated pulmonary arterial systolic pressure is 39 mmHg. 16. There is mild pulmonic regurgitation. 17. The aortic root size at the sinus of Valsalva is mildly dilated. Holding further IV fluids. Patient is now diuresing well without needing
--- NOTE | 2021-03-21 09:10 | PM.CNCAR ---
History of Present Illness History of Present Illness Consult date/time: 03/21/21 09:10 Consult reason: Other Reason For Visit: Pneumonia, Respiratory Failure [facility] Past Medical History Medical History (Updated 03/20/21 @ 15:42 by Bijal Jasso MD) COPD (chronic obstructive pulmonary disease) Fentanyl use disorder, mild, abuse Social History Social History Alcohol intake: current Drinks per week: 5 Substance use: never Gender identity (if verbalized by the patient): Male Sexual Orientation (if Verbalized by the Patient): Straight or Heterosexual Spiritual care concerns: No Meds Home Medications and Allergies Home Medications Medication Instructions Recorded Confirmed Type albuterol sulfate INHALATION 03/18/21 History fluticasone propion-salmeterol INHALATION 03/18/21 03/18/21 History [Wixela Inhub] prednisone 03/18/21 History Allergies Allergy/AdvReac Type Severity Reaction Status Date / Time codeine Allergy Dyspnea / Verified 03/19/21 06:44 SOB Vital Signs Vital Signs - 24 hr 03/20/21 10:00 03/20/21 10:54 03/20/21 11:30 Temperature Pulse Rate 103 H 96 87 Respiratory Rate 22 H 20 Blood Pressure 99/65 L Pulse Oximetry 95 96 03/20/21 12:00 03/20/21 12:27 03/20/21 14:00 Temperature 98.1 F Pulse Rate 87 87 96 Respiratory Rate 20 20 22 H Blood Pressure 96/58 L 121/74 Pulse Oximetry 99 98 03/20/21 14:01 03/20/21 16:00 03/20/21 16:12 Temperature 97.7 F Pulse Rate 90 90 90 Respiratory Rate 22 H 22 H Blood Pressure 97/72 L Pulse Oximetry 99 98 03/20/21 16:29 03/20/21 18:00 03/20/21 20:00 Temperature 98.5 F Pulse Rate 101 H 89 71 Respiratory Rate 22 H 15 Blood Pressure 96/72 L 101/66 Pulse Oximetry 99 100 100 03/20/21 20:16 03/20/21 20:26 03/20/21 21:00 Temperature Pulse Rate 73 77 Respiratory Rate 22 H 22 H Blood Pressure Pulse Oximetry 99 99 03/20/21 21:15 03/20/21 21:16 03/20/21 21:37 Temperature Pulse Rate 84 81 81 Respiratory Rate 21 H 22 H 24 H Blood Pressure 132/81 Pulse Oximetry 97 03/20/21 23:15 03/21/21 00:00 03/21/21 00:57 Temperature 97.1 F L Pulse Rate 77 71 77 Respiratory Rate 22 H 22 H Blood Pressure 108/69 Pulse Oximetry 99 96 03/21/21 01:05 03/21/21 01:06 03/21/21 02:00 Temperature Pulse Rate 77 74 76 Respiratory Rate 22 H 22 H 22 H Blood Pressure 123/74 Pulse Oximetry 97 03/21/21 02:31 03/21/21 02:32 03/21/21 03:40 Temperature Pulse Rate 79 79 76 Respiratory Rate 22 H 22 H Blood Pressure Pulse Oximetry 98 96 03/21/21 03:46 03/21/21 04:00 03/21/21 05:05 Temperature 97.1 F L Pulse Rate 75 94 75 Respiratory Rate 22 H Blood Pressure 110/71 Pulse Oximetry 96 96 03/21/21 05:06 03/21/21 05:24 03/21/21 07:36 Temperature Pulse Rate 81 75 69 Respiratory Rate 24 H 22 H 22 H Blood Pressure 121/74 Pulse Oximetry 97 03/21/21 07:37 03/21/21 07:46 03/21/21 08:11 Temperature Pulse Rate 74 71 72 Respiratory Rate 22 H 22 H Blood Pressure Pulse Oximetry 98 Results Labs and Meds Result diagrams: 03/21/21 05:41 03/21/21 05:41 Lab results: Cardiac Enzymes 03/21/21 Range/Units 05:41 AST 106 H (17-59) U/L CBC 03/21/21 Range/Units 05:41 WBC 11.8 H (4.5-10.0) K/mm3 RBC 4.17 L (4.6-6.20) M/mm3 Hgb 12.2 L (14.0-18.0) g/dL Hct 37.8 L (42.0-52.0) % Plt Count 268 (150-375) k/mm3 Comprehensive Metabolic Panel 03/21/21 Range/Units 05:41 Sodium 140 (137-145) mmol/L Potassium 4.2 (3.4-5.0) mmol/L Chloride 108 H (98-107) mmol/L Carbon Dioxide 31 H (22-30) mmol/L BUN 24 H (9-20) mg/dL Creatinine 0.70 (0.7-1.3) mg/dL Glucose 97 (75-110) mg/dL Calcium 8.5 (8.4-10.2) mg/dL AST 106 H (17-59) U/L ALT 190 H (4-50) U/L Alkaline Phosphatase 95 (38-126) U/L Total
[2021-03-21 11:40] LABS: Glucose Point of Care 111 mg/dl (65-105)
[2021-03-21] MEDS: FENTANYL 2,500MCG/NS250ML(*CRX 2,500 MCG/250 ML BAG 15 MCG IV CONT (14:32)
--- NOTE | 2021-03-21 15:29 | PM.PNCARD ---
Progress Note: A&P Assessment and Plan (1) Atrial fibrillation: Code(s): I48.91 - Unspecified atrial fibrillation Status: Acute Assessment and Plan: New onset of parosyxmal AFib secondary to acute illness. Heart rate in aa fib was controlled on no rate-controlling medications suggesting some AV node disease. Currently back in NSR, with full-dose Lovenox. Will not resume amiodarone in an attempt pharmacologic cardioversion because of elevated liver enzymes, though they are improving. (2) Systolic heart failure: Code(s): I50.20 - Unspecified systolic (congestive) heart failure Status: Acute Assessment and Plan: New onset? systolic congestive heart failure. BP still too soft to initiate any heart failure regimen at this point; perhaps in the next couple of days. Has received a lot of IV fluids this admission but appears to be spontaneously diuresing, so far.. (3) Cardiomyopathy: Code(s): I42.9 - Cardiomyopathy, unspecified Status: Acute Assessment and Plan: Four-chamber cardiac enlargement with EF of 20-25%, mod MR and RV hypokinesis. (4) Community acquired pneumonia: Qualifiers: Laterality: right Lung location: unspecified part of lung Qualified Code(s): J18.9 - Pneumonia, unspecified organism Code(s): J18.9 - Pneumonia, unspecified organism Status: Acute Assessment and Plan: Appears to be strep pneumonia. Continue antibiotics (5) Septic shock: Code(s): A41.9 - Sepsis, unspecified organism; R65.21 - Severe sepsis with septic shock Status: Acute Assessment and Plan: Secondary to strep pneumonia. Blood cultures positive for strep pneumonia. Improving, off pressors. Continue antibiotics and supportive care. (6) Acute respiratory failure: Code(s): J96.00 - Acute respiratory failure, unspecified whether with hypoxia or hypercapnia Status: Acute Assessment and Plan: On the ventilator managed by ICU team (7) Hyponatremia: Code(s): E87.1 - Hypo-osmolality and hyponatremia Status: Acute Assessment and Plan: Hypokalemia and hyponatremia resolved. Subjective Date/time seen: 03/21/21 15:29 Interval history: Follow-up for paroxysmal atrial fibrillation, with new onset CHF and cardiomyopathy, EF 20-25%. The patient was admitted with pneumonia requiring intubation, and septic shock with strep bacteremia. 03/20/2021: Patient had brief episode of atrial fibrillation yesterday which resolved. Today he went back and atrial fibrillation this morning with a controlled rate, heart rate 90-100. His vasopressin was discontinued a while back and Levophed weaned off this morning. Remains on ventilator, FiO2 35%. Remains on sedation with fentanyl and Versed. Date of Service 03/21/2021: Pt converted to NSR yesterday evening. REmains intubated, FiO2 30%, getting tube feedings. REmains off pressors. Trying to wean sedation but pt gets very agitated. I's and O's: 3500 cc in/5900 out spontaneously yesterday. Review of Systems Review of Systems: Narrative: ROS obtained fr pt's RN ROS unobtainable: Yes unobtainable due to endotracheal tube, unobtainable due to medical condition and unobtainable due to mental status Constitutional: Constitutional: Denies excessive sweating, Denies headache(s) and Reports weakness Eyes: Eyes: Reports no additional eye complaints and Reports blurry vision ENT: Denies headache(s), Denies lip swelling and Denies epistaxis Cardiovascular: Cardiovascular: Reports leg edema and Reports dyspnea Respiratory: Respiratory: Reports dyspnea (remains on v
--- NOTE | 2021-03-21 18:22 | PM.IMPN ---
Progress Note: A&P Assessment and Plan (1) Community acquired pneumonia: Qualifiers: Laterality: right Lung location: unspecified part of lung Qualified Code(s): J18.9 - Pneumonia, unspecified organism Code(s): J18.9 - Pneumonia, unspecified organism Status: Acute (2) Septic shock: Code(s): A41.9 - Sepsis, unspecified organism; R65.21 - Severe sepsis with septic shock Status: Acute (3) Acute respiratory failure: Code(s): J96.00 - Acute respiratory failure, unspecified whether with hypoxia or hypercapnia Status: Acute (4) Elevated brain natriuretic peptide (BNP) level: Code(s): R79.89 - Other specified abnormal findings of blood chemistry Status: Acute (5) Hyponatremia: Code(s): E87.1 - Hypo-osmolality and hyponatremia Status: Acute (6) Atrial fibrillation: Code(s): I48.91 - Unspecified atrial fibrillation Status: Acute (7) COPD (chronic obstructive pulmonary disease): Code(s): J44.9 - Chronic obstructive pulmonary disease, unspecified Status: Acute (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 levophed started. continue to titrate for a MAP of 65. # right lobe pneumonia: contineuv ancomycin, ceftraixone, azithromycn. check resp culture, pneumonococccal ag, mycoplasma, legionelal. check fro COVID. # Acute respiratory failure hypoxic. and hypercarbic. s/p intubation and mechincal ventilation. recheck abg in 2 hrs. adjust vent setting as needed. # Elevated BNP: check echo. tropoin negative. # hyponatremia: monitor. mild. # DVT proph: lovenox # Full code 03/19/21 He patient with a short period of atrial fibrillation seen by cardiology no anticoagulation recommended Believed to have systolic heart failure no heart failure regimen can be initiated at this time as patient is on multiple pressors He continues on IV antibiotic broad-spectrum for pneumonia Blood culture growing Streptococcus pneumoniae Highly probable bacteria in blood she did from lung, anticipate streptococcal pneumoniae pneumonia as source, sputum culture pending COVID has been ruled out negative PCR Patient remains critically ill and requires continued care in the ICU at this time 03/20/2021 No significant change On IV broad-spectrum antibiotic for streptococcal pneumoniae PNA and bacteremia Vent management per hand miter operator Continue current care Remains critically ill in ICU 03/21/2021 Perfusion appears improved Versed changed to propofol with improved sedation Remains on pressor remains on broad-spectrum antibiotics, leukocytosis trending down Liver enzymes down trending Creatinine and within normal limits and patient positive approximately 5 L since admission Continue current care Patient Remains critically ill requiring ICU level of care Subjective Date/time seen: 03/21/21 14:22 Patient remains in ICU intubated and sedated although appears to be improving Interval history: Follow-up for paroxysmal atrial fibrillation, with new onset CHF and cardiomyopathy, EF 20-25%. The patient was admitted with pneumonia requiring intubation, and septic shock with strep bacteremia. 03/20/2021: Patient had brief episode of atrial fibrillation yesterday which resolved. Today he went back and atrial fibrillation this morning with a contr
[2021-03-21 18:57] LABS: Glucose Point of Care 83 mg/dl (65-105)
[2021-03-21] MEDS: PROPOFOL IV EMULSION 100 ML 17.33 MG IV CONT (20:05)
[2021-03-21 23:46] LABS: Glucose Point of Care 120 mg/dl (65-105)
[2021-03-22] VITALS (35 sets, daily range): BP systolic 111–166; BP diastolic 66–92; PULSE 56–104; RESP 20–34; TEMP 36.3–36.8; O2SAT 95–100
[2021-03-22] MEDS: PROPOFOL IV EMULSION 100 ML 14.45 MG IV CONT (02:32)
[2021-03-22] MEDS: ALBUTEROL SULFATE NEB 2.5 MG/0.5 ML INH INHALATION ×4 (03:13→20:03)
[2021-03-22] MEDS: IPRATROPIUM BR 0.02% INH SOLN 0.5 MG/2.5 ML VIAL INHALATION ×4 (03:13→20:03)
[2021-03-22 04:15] LABS: Alveolar/Arterial O2 Gradient 91.2 mmHg; Carboxyhemoglobin 0.3 % THb (0-2.0); Fractional Inspired Oxygen 30 %; HCO3 ABG 29.6 mEq/l (22.0-26.0); Methemoglobin ABG 0.2 %THb (0-1.5); Oxygen Content ABG 16.7 %vol (16.0-22.0); Oxygen Saturation ABG 96.4 % (95.0-100.0); Oxyhemoglobin 94.8 % THb (90.0-100.0); PCO2 ABG 38.9 mmHg (35.0-45.0); PO2 FiO2 Ratio Arterial Blood 2.57 %; Reduced Hemoglobin 4.7 %THb (0-5.0); Total Hemoglobin 12.5 g/dL (12.0-18.0); pH ABG 7.499 (7.350-7.450)
[2021-03-22 04:16] LABS: Arterial Blood Gas PEEP 8 cmH2O; Arterial Blood Gas Tidal Volume 450 ml; Arterial Blood Gas Vent Mode CMV; Arterial Blood Gas Ventilator rate 22 /MIN; Device VENTILATOR; Modified Allen's Test Pass; Site Drawn LEFT RADIAL
[2021-03-22] MEDS: METOCLOPRAMIDE HCL 10 MG/10 ML SOLN UDC 5 MG FEED TUBE ×4 (05:24→23:44)
[2021-03-22] MEDS: HYDROCORTISONE SODIUM SUCCINATE 100 MG/2 ML VIAL IV PUSH ×3 (05:24→21:00)
[2021-03-22] MEDS: CENTRAL LINE FLUSH 10 ML IV PUSH ×4 (05:24→21:00)
[2021-03-22 05:25] LABS: Hematocrit 36.8 % (42.0-52.0); Hemoglobin 11.7 g/dL (14.0-18.0); Mean Corpuscular HGB Conc 31.8 g/dl (32-36); Mean Corpuscular Hemoglobin 28.8 pg (26-34); Mean Corpuscular Volume 90.6 fl (80-100); Mean Platelet Volume 9.7 fl (7.4-10.4); Platelet Count Result 288 k/mm3 (150-375); Red Blood Count 4.06 M/mm3 (4.6-6.20); White Blood Count 10.8 K/mm3 (4.5-10.0)
[2021-03-22 05:36] LABS: Alanine Aminotransferase 169 U/L (4-50); Albumin Level 2.4 g/dL (3.5-5.1); Alkaline Phosphatase 86 U/L (38-126); Anion Gap 3 mmol/L (8-16); Aspartate Amino Transferase 101 U/L (17-59); Bilirubin,Total 0.2 mg/dL (0.2-1.3); Blood Urea Nitrogen 28 mg/dL (9-20); Calcium 8.6 mg/dL (8.4-10.2); Carbon Dioxide 32 mmol/L (22-30); Chloride 106 mmol/L (98-107); Estimated CRCL calculation 106 ml/min; Estimated Glomerular Filt Rate > 60; Glucose 84 mg/dL (75-110); Magnesium 2.3 mg/dL (1.6-2.3); Potassium 4.4 mmol/L (3.4-5.0); Sodium 141 mmol/L (137-145)
[2021-03-22] MEDS: ENOXAPARIN 100 MG/ML SYRINGE SUB-Q ×2 (08:51→20:58)
[2021-03-22] MEDS: ASPIRIN 325 MG TABLET PO (08:52)
[2021-03-22] MEDS: FAMOTIDINE 20 MG/2 ML VIAL IV PUSH ×2 (08:52→20:58)
[2021-03-22] MEDS: PROPOFOL IV EMULSION 100 ML 17.33 MG IV CONT ×2 (08:56→15:41)
--- NOTE | 2021-03-22 09:11 | WPDINTPN ---
Progress Note: A&P Assessment and Plan (1) Acute respiratory failure: Code(s): J96.00 - Acute respiratory failure, unspecified whether with hypoxia or hypercapnia Status: Acute Assessment and Plan: Acute Respiratory failure secondary to source pneumococcal community-acquired pneumonia and baseline COPD Continue full mechanical ventilation support to prevent hypoxemia/hypercarbia and end organ damage. ABG and chest x-ray reviewed and will repeat in am. Low tidal volume ventilation strategy to prevent volutrauma Patient was placed on pressure support ventilation trial this morning but his respiratory rate was in high 30s with high RSBI. Trial was aborted Continue Bronchodilators ,Hydrocortisone Sedation holiday Continue propofol and will hold fentanyl for now. May have to add Precedex (2) Community acquired pneumonia: Qualifiers: Laterality: right Lung location: unspecified part of lung Qualified Code(s): J18.9 - Pneumonia, unspecified organism Code(s): J18.9 - Pneumonia, unspecified organism Status: Acute Assessment and Plan: Pneumococcal community-acquired pneumonia Blood culture is growing Streptococcus pneumoniae Discontinued vancomycin. Continue Rocephin. Patient completed 5 days of atypical coverage with doxycycline Urine Legionella and pneumococcal antigen pending (3) Suspected COVID-19 virus infection: Code(s): Z20.822 - Contact with and (suspected) exposure to COVID-19 Status: Acute Assessment and Plan: COVID-19 suspected in ED and PCR was ordered although clinical picture not consistent PCR came back negative and isolation discontinued (4) Septic shock: Code(s): A41.9 - Sepsis, unspecified organism; R65.21 - Severe sepsis with septic shock Status: Acute Assessment and Plan: Patient was given 1 L saline bolus in ED due to concerns of heart failure as patient elevated BNP and lower extremity edema and after intubation and sedation patient blood pressure dropped Patient was started on Levophed, and later vasopressin was added Patient has received adequate volume resuscitation and I suspect cardiogenic component to the shock. ECHO echo confirmed EF of 20-25% and dilation of right ventricle and right ventricle systolic failure Now improved and off of vasopressors Continue hydrocortisone and wean Patient also converted from AFib to sinus rhythm. Patient was not started on inotrope due to concern of recurrence atrial fibrillation (5) Systolic heart failure: Code(s): I50.20 - Unspecified systolic (congestive) heart failure Status: Acute Assessment and Plan: Summary 1. Complete two-dimensional, color flow and Doppler transthoracic echocardiogram is performed. 2. Left ventricular chamber dimension is mildly enlarged. 3. Left ventricular systolic function is severely reduced, estimated at 20-25%. 4. There is no increased left ventricular wall thickness. 5. Left ventricular septal wall motion is abnormal with septal motion related to bundle branch block. 6. The left ventricular diastolic function is grade I diastolic dysfunction. 7. Global hypokinesis of the left ventricle. 8. Right ventricular chamber dimension is severely enlarged. 9. Right ventricular systolic function is reduced. 10. Left atrial chamber dimension is mildly enlarged. 11. Right atrial chamber dimension is moderately enlarged. 12. There is moderate aortic valve sclerosis. 13. There is moderate mitral valve regurgitation. 14. There is mild to moderate tricuspid valve regurgitation. 15. Mild pulmonary hypertension, estimated pulmonary arterial systolic pressure is 39 mmHg. 16. There is mild pulmonic regurgitation. 17. The aortic root size at the sinus of Valsalva is mildly dilated. Holding further IV fluids. Patient is now diuresing well without needing vasopressors says with improvement in his blood pressure Patient was evaluated
--- NOTE | 2021-03-22 11:11 | PM.PNCARD ---
Progress Note: A&P Assessment and Plan (1) Atrial fibrillation: Code(s): I48.91 - Unspecified atrial fibrillation Status: Acute Assessment and Plan: New onset of parosyxmal AFib secondary to acute illness. Heart rate in aa fib was controlled on no rate-controlling medications suggesting some AV node disease. Currently back in NSR, with full-dose Lovenox. Will not resume amiodarone in an attempt pharmacologic cardioversion because of elevated liver enzymes, though they are improving. (2) Systolic heart failure: Code(s): I50.20 - Unspecified systolic (congestive) heart failure Status: Acute Assessment and Plan: New onset? systolic congestive heart failure. Has received a lot of IV fluids this admission but appears to be spontaneously diuresing, so far. BP acceptable to initiate low dose SHILO. Will titrate and introduce additional heart failure agents as BP tolerates. (3) Cardiomyopathy: Code(s): I42.9 - Cardiomyopathy, unspecified Status: Acute Assessment and Plan: Four-chamber cardiac enlargement with EF of 20-25%, mod MR and RV hypokinesis. (4) Community acquired pneumonia: Qualifiers: Laterality: right Lung location: unspecified part of lung Qualified Code(s): J18.9 - Pneumonia, unspecified organism Code(s): J18.9 - Pneumonia, unspecified organism Status: Acute Assessment and Plan: Appears to be strep pneumonia. Continue antibiotics (5) Septic shock: Code(s): A41.9 - Sepsis, unspecified organism; R65.21 - Severe sepsis with septic shock Status: Acute Assessment and Plan: Secondary to strep pneumonia. Blood cultures positive for strep pneumonia. Improving, off pressors. Continue antibiotics and supportive care. (6) Acute respiratory failure: Code(s): J96.00 - Acute respiratory failure, unspecified whether with hypoxia or hypercapnia Status: Acute Assessment and Plan: On the ventilator managed by ICU team (7) Hyponatremia: Code(s): E87.1 - Hypo-osmolality and hyponatremia Status: Acute Assessment and Plan: Hypokalemia and hyponatremia resolved. Subjective Date/time seen: 03/22/21 11:11 Interval history: Follow-up for paroxysmal atrial fibrillation, with new onset CHF and cardiomyopathy, EF 20-25%. The patient was admitted with pneumonia requiring intubation, and septic shock with strep bacteremia. 03/20/2021: Patient had brief episode of atrial fibrillation yesterday which resolved. Today he went back and atrial fibrillation this morning with a controlled rate, heart rate 90-100. His vasopressin was discontinued a while back and Levophed weaned off this morning. Remains on ventilator, FiO2 35%. Remains on sedation with fentanyl and Versed. Date of Service 03/21/2021: Pt converted to NSR yesterday evening. REmains intubated, FiO2 30%, getting tube feedings. REmains off pressors. Trying to wean sedation but pt gets very agitated. I's and O's: 3500 cc in/5900 out spontaneously yesterday. Date of service 03/22/2021: Patient remains in NSR. No ectopy noted on telemetry overnight. He remains intubated on 30% FiO2. Sedated with propofol and fentanyl. Off pressors. BP has remained stable. Review of Systems Review of Systems: ROS unobtainable: Yes unobtainable due to endotracheal tube, unobtainable due to medical condition and unobtainable due to mental status Exam Const: General: comfortable and no acute distress Orientation/consciousness: Other orientation findings (Sedated) HENMT: Head: normal to inspection General nose exam: Normal nare
--- NOTE | 2021-03-22 13:02 | PCDIET ---
Nutrition Follow-Up Complete: Nutrition Diagnosis: Inadequate oral intake related to oral intubation as evidenced by need for enteral feeding. Nutrition Goal: Patient to meet estimated nutritional needs. Goal in progress. Patient now tolerating Jevity 1.2 at 50mL/hr with 30mL water flush every 4 hours. Recommend keeping rate at 50mL/hr to prevent overfeeding while on Propofol. Last recorded weight is 96.3 kg which is stable with last review. +I/O. Bowel Motility: No documented BM as of yet. Labs Reviewed: Hgb (11.7), Hct (36.8), BUN (28), Alb (2.4) Meds Noted: Albuterol, Vibramycin, Rocephin, Pepcid, Atrovent, Reglan, Precedex, Solu Cortef, Versed, Propofol (current rate of 17.33mL/hr provides 457kcal per day) Additional Notes: No documented skin breakdown. Will continue to monitor with same goal. Nutrition Monitoring and Evaluation: Follow up every Monday/Monday.
--- NOTE | 2021-03-22 15:57 | PM.IMPN ---
Progress Note: A&P Assessment and Plan (1) Community acquired pneumonia: Qualifiers: Laterality: right Lung location: unspecified part of lung Qualified Code(s): J18.9 - Pneumonia, unspecified organism Code(s): J18.9 - Pneumonia, unspecified organism Status: Acute (2) Septic shock: Code(s): A41.9 - Sepsis, unspecified organism; R65.21 - Severe sepsis with septic shock Status: Acute (3) Acute respiratory failure: Code(s): J96.00 - Acute respiratory failure, unspecified whether with hypoxia or hypercapnia Status: Acute (4) Elevated brain natriuretic peptide (BNP) level: Code(s): R79.89 - Other specified abnormal findings of blood chemistry Status: Acute (5) Hyponatremia: Code(s): E87.1 - Hypo-osmolality and hyponatremia Status: Acute (6) Atrial fibrillation: Code(s): I48.91 - Unspecified atrial fibrillation Status: Acute (7) COPD (chronic obstructive pulmonary disease): Code(s): J44.9 - Chronic obstructive pulmonary disease, unspecified Status: Acute (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 levophed started. continue to titrate for a MAP of 65. blodo cutlure growign strep pneumoniae, lielky source pneuonia. sputum cutlrue pending. covid neative. # right lobe pneumonia: contineuv ancomycin, ceftraixone, azithromycn. check resp culture, pneumonococccal ag, mycoplasma, legionelal. check fro COVID. pneumococcal pneumonia with bacteremia. covid negative. # afib with rvr: cadiologycosnulted. on and on baord. bsack to sinus rhythm now. # Acute respiratory failure hypoxic. and hypercarbic. s/p intubation and mechincal ventilation. recheck abg in 2 hrs. adjust vent setting as needed. # Elevated BNP: echo with systolic dysfunction. # hyponatremia: monitor. mild. # DVT proph: lovenox # Full code #c ardiomyopathy: ef 2025%. cardiology on board. new onset. acei, bb per cards # Bacteremia pneumococcal Subjective Date/time seen: 03/22/21 15:57 Interval history: Follow-up for paroxysmal atrial fibrillation, with new onset CHF and cardiomyopathy, EF 20-25%. The patient was admitted with pneumonia requiring intubation, and septic shock with strep bacteremia no overnight events. patient sedated and intubated on full support vent. eyes open but not following comdns. Review of Systems Review of Systems: ROS unobtainable: Yes unobtainable due to endotracheal tube, unobtainable due to medical condition and unobtainable due to mental status Exam Narrative: Exam Narrative: GENERAL:sedated and on ventilator HEAD: Normocephalic, atraumatic. CHEST: Symmetric chest rise, no respiratory distress HEART: regular rate, regular rhythm. Bilateral feet are now of normal color and temperature ABDOMEN: Soft, nontender, nondistended, normal active bowel sounds. EXTREMITIES: Mild edema. no cyanossi or clubbing SKIN: intact, dry, no rash. NEURO: Sedated, unable to assess Objective Data Vital Signs Vital Signs: Vital Signs - 24 hr 03/21/21 16:00 03/21/21 16:59 03/21/21 18:00 Temperature 97.6 F Pulse Rate 80 72 80 Respiratory Rate 13 22 H Blood Pressure 102/60 103/60 Pulse Oximetry 96 97 98 03/21/21 19:38 03/21/21 19:54 03/21/21 20:00 Temperature 97.3 F L Pulse Rate 72 72 72 Respirato
[2021-03-22] MEDS: PROPOFOL IV EMULSION 100 ML 20.22 MG IV CONT (20:57)
[2021-03-23] VITALS (52 sets, daily range): BP systolic 95–184; BP diastolic 59–96; PULSE 58–100; RESP 20–36; TEMP 36.4–36.7; O2SAT 95–100
[2021-03-23] MEDS: PROPOFOL IV EMULSION 100 ML 23.11 MG IV CONT ×4 (01:34→14:24)
[2021-03-23] MEDS: IPRATROPIUM BR 0.02% INH SOLN 0.5 MG/2.5 ML VIAL INHALATION ×4 (01:43→21:21)
[2021-03-23] MEDS: ALBUTEROL SULFATE NEB 2.5 MG/0.5 ML INH INHALATION ×4 (01:43→21:21)
[2021-03-23 05:07] LABS: Alveolar/Arterial O2 Gradient 94.9 mmHg; Base Excess ABG 6.7 mEq/l (+/-2.0); Carboxyhemoglobin 0.2 % THb (0-2.0); Fractional Inspired Oxygen 30 %; HCO3 ABG 31.2 mEq/l (22.0-26.0); Methemoglobin ABG 0.2 %THb (0-1.5); Oxygen Saturation ABG 94.3 % (95.0-100.0); Oxyhemoglobin 92.8 % THb (90.0-100.0); PCO2 ABG 44.1 mmHg (35.0-45.0); PO2 ABG 67.2 mmHg (80.0-100.0); PO2 FiO2 Ratio Arterial Blood 2.24 %; Reduced Hemoglobin 6.8 %THb (0-5.0); Site Drawn RIGHT RADIAL; Total Hemoglobin 13.8 g/dL (12.0-18.0); pH ABG 7.468 (7.350-7.450)
[2021-03-23 05:08] LABS: Arterial Blood Gas PEEP 8 cmH2O; Arterial Blood Gas Tidal Volume 450 ml; Arterial Blood Gas Vent Mode CMV; Arterial Blood Gas Ventilator rate 22 /MIN; Device VENTILATOR; Modified Allen's Test Unable to perform
--- NOTE | 2021-03-23 05:23 | PC.NURSE ---
Dr. Dias notified of increased work of breathing despite being on 40mcg of Propofol. Restart Fentynal drip at 50mcg and increase as needed.
[2021-03-23] MEDS: FENTANYL 2,500MCG/NS250ML(*CRX 2,500 MCG/250 ML BAG IV CONT (05:30)
[2021-03-23 05:32] LABS: Hematocrit 38.7 % (42.0-52.0); Hemoglobin 12.6 g/dL (14.0-18.0); Mean Corpuscular HGB Conc 32.6 g/dl (32-36); Mean Corpuscular Hemoglobin 28.8 pg (26-34); Mean Corpuscular Volume 88.4 fl (80-100); Mean Platelet Volume 9.7 fl (7.4-10.4); Platelet Count Result 356 k/mm3 (150-375); Red Blood Count 4.38 M/mm3 (4.6-6.20); Red Cell Distribution Width 15.9 % (11.5-14.5); White Blood Count 15.1 K/mm3 (4.5-10.0)
[2021-03-23] MEDS: METOCLOPRAMIDE HCL 10 MG/10 ML SOLN UDC 5 MG FEED TUBE ×4 (05:42→23:27)
[2021-03-23] MEDS: HYDROCORTISONE SODIUM SUCCINATE 100 MG/2 ML VIAL IV PUSH ×3 (05:42→21:59)
[2021-03-23] MEDS: CENTRAL LINE FLUSH 10 ML IV PUSH ×3 (05:42→21:59)
[2021-03-23 05:45] LABS: Legionella pneumophila Ag Ur Not Detected (Not Detected)
[2021-03-23 06:43] LABS: Alanine Aminotransferase 165 U/L (4-50); Albumin Level 2.6 g/dL (3.5-5.1); Alkaline Phosphatase 93 U/L (38-126); Anion Gap 4 mmol/L (8-16); Aspartate Amino Transferase 100 U/L (17-59); Bilirubin,Total 0.2 mg/dL (0.2-1.3); Blood Urea Nitrogen 32 mg/dL (9-20); Calcium 8.4 mg/dL (8.4-10.2); Carbon Dioxide 32 mmol/L (22-30); Chloride 104 mmol/L (98-107); Estimated CRCL calculation 106 ml/min; Estimated Glomerular Filt Rate > 60; Glucose 97 mg/dL (75-110); Magnesium 2.3 mg/dL (1.6-2.3); Potassium 4.4 mmol/L (3.4-5.0); Sodium 140 mmol/L (137-145)
--- NOTE | 2021-03-23 08:18 | WPDINTPN ---
Progress Note: A&P Assessment and Plan (1) Acute respiratory failure: Code(s): J96.00 - Acute respiratory failure, unspecified whether with hypoxia or hypercapnia Status: Acute Assessment and Plan: Acute Respiratory failure secondary to source pneumococcal community-acquired pneumonia and baseline COPD Continue full mechanical ventilation support to prevent hypoxemia/hypercarbia and end organ damage. ABG and chest x-ray reviewed and will repeat in am. Decrease tidal volume to 420 and rate to 20 Advance ET tube by 2 cm Patient was placed on pressure support ventilation trial earlier and failed Continue Bronchodilators ,Hydrocortisone Sedation holiday Not a candidate for weaning trial at this time Continue propofol and and fentanyl for now. At Precedex. 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 Continue Rocephin. Patient completed 5 days of atypical coverage with doxycycline Urine Legionella negative and pneumococcal antigen pending (3) Suspected COVID-19 virus infection: Code(s): Z20.822 - Contact with and (suspected) exposure to COVID-19 Status: Acute Assessment and Plan: COVID-19 suspected in ED and PCR was ordered although clinical picture not consistent PCR came back negative and isolation discontinued (4) Septic shock: Code(s): A41.9 - Sepsis, unspecified organism; R65.21 - Severe sepsis with septic shock Status: Acute Assessment and Plan: Patient was given 1 L saline bolus in ED due to concerns of heart failure as patient elevated BNP and lower extremity edema and after intubation and sedation patient blood pressure dropped Patient was started on Levophed, and later vasopressin was added Patient has received adequate volume resuscitation and I suspect cardiogenic component to the shock. ECHO echo confirmed EF of 20-25% and dilation of right ventricle and right ventricle systolic failure Now improved and off of vasopressors Continue hydrocortisone and wean Patient also converted from AFib to sinus rhythm. Patient was not started on inotrope due to concern of recurrence atrial fibrillation (5) Systolic heart failure: Code(s): I50.20 - Unspecified systolic (congestive) heart failure Status: Acute Assessment and Plan: Summary 1. Complete two-dimensional, color flow and Doppler transthoracic echocardiogram is performed. 2. Left ventricular chamber dimension is mildly enlarged. 3. Left ventricular systolic function is severely reduced, estimated at 20-25%. 4. There is no increased left ventricular wall thickness. 5. Left ventricular septal wall motion is abnormal with septal motion related to bundle branch block. 6. The left ventricular diastolic function is grade I diastolic dysfunction. 7. Global hypokinesis of the left ventricle. 8. Right ventricular chamber dimension is severely enlarged. 9. Right ventricular systolic function is reduced. 10. Left atrial chamber dimension is mildly enlarged. 11. Right atrial chamber dimension is moderately enlarged. 12. There is moderate aortic valve sclerosis. 13. There is moderate mitral valve regurgitation. 14. There is mild to moderate tricuspid valve regurgitation. 15. Mild pulmonary hypertension, estimated pulmonary arterial systolic pressure is 39 mmHg. 16. There is mild pulmonic regurgitation. 17. The aortic root size at the sinus of Valsalva is mildly dilated. Holding further IV fluids. Patient is now diuresing well without needing vasopressors says with improvement in his blood pressure
[2021-03-23] MEDS: FAMOTIDINE 20 MG/2 ML VIAL IV PUSH ×2 (08:23→21:59)
[2021-03-23] MEDS: lisinopriL 2.5 MG TABLET PO (08:23)
[2021-03-23] MEDS: ENOXAPARIN 100 MG/ML SYRINGE SUB-Q ×2 (08:23→21:59)
[2021-03-23] MEDS: ASPIRIN 325 MG TABLET PO (08:23)
[2021-03-23] MEDS: dexmedeTOMIDine 400 MCG/100 ML 400 MCG/100 ML BAG IV CONT (10:40)
[2021-03-23] MEDS: PROPOFOL IV EMULSION 100 ML 28.89 MG IV CONT (10:52)
--- NOTE | 2021-03-23 11:18 | PCDIET ---
Nutrition Follow-Up Complete: Nutrition Diagnosis: Inadequate oral intake related to oral intubation as evidenced by need for enteral feeding. Nutrition Goal: Patient to meet estimated nutritional needs. Goal in progress. Patient tolerating Jevity 1.2 at 50mL/hr goal rate with 30mL water flush every 4 hours. Last recorded weight is 96.3 kg which is down from last review. +I/O. Bowel Motility: No BM, per RN. MD added scheduled Colace and prn Miralax and Dulcolax. Labs Reviewed: Hgb (12.6), Hct (38.7), BUN (32), Alb (2.6) Meds Noted: Albuterol, Rocephin, Vibramycin, Pepcid, Fentanyl, Solu Cortef, Atrovent, Prinivil, Reglan, Versed, Propofol (rate of 23.11mL/hr provides 610kcal per day) Additional Notes: No documented skin breakdown. Will continue to monitor with same goal. Nutrition Monitoring and Evaluation: Follow up every Monday/Monday.
--- NOTE | 2021-03-23 13:28 | PM.PNCARD ---
Progress Note: A&P Assessment and Plan (1) Atrial fibrillation: Code(s): I48.91 - Unspecified atrial fibrillation <SONJA Yates - Last Filed: 03/23/21 14:00> Status: Acute <SONJA Yates - Last Filed: 03/23/21 14:00> Assessment and Plan: New onset of parosyxmal AFib secondary to acute illness. Heart rate in aa fib was controlled on no rate-controlling medications suggesting some AV node disease. Currently back in NSR, with full-dose Lovenox. Will not resume amiodarone in an attempt pharmacologic cardioversion because of elevated liver enzymes, though they are improving. <SONJA Yates - Last Filed: 03/23/21 14:00> (2) Systolic heart failure: Code(s): I50.20 - Unspecified systolic (congestive) heart failure <SONJA Yates - Last Filed: 03/23/21 14:00> Status: Acute <SONJA Yates - Last Filed: 03/23/21 14:00> Assessment and Plan: New onset? systolic congestive heart failure. Has received a lot of IV fluids this admission but appears to be spontaneously diuresing, so far. BP acceptable to initiate low dose SHILO. Will titrate and introduce additional heart failure agents as blood pressure and heart rate tolerate. <SONJA Yates - Last Filed: 03/23/21 14:00> (3) Cardiomyopathy: Code(s): I42.9 - Cardiomyopathy, unspecified <SONJA Yates - Last Filed: 03/23/21 14:00> Status: Acute <SONJA Yates - Last Filed: 03/23/21 14:00> Assessment and Plan: Four-chamber cardiac enlargement with EF of 20-25%, mod MR and RV hypokinesis. <SONJA Yates - Last Filed: 03/23/21 14:00> (4) Community acquired pneumonia: Qualifiers: Laterality: right Lung location: unspecified part of lung Qualified Code(s): J18.9 - Pneumonia, unspecified organism <SONJA Yates - Last Filed: 03/23/21 14:00> Code(s): J18.9 - Pneumonia, unspecified organism <SOJNA Yates - Last Filed: 03/23/21 14:00> Status: Acute <SONJA Yates - Last Filed: 03/23/21 14:00> Assessment and Plan: Appears to be strep pneumonia. Continue antibiotics <SONJA Yates - Last Filed: 03/23/21 14:00> (5) Septic shock: Code(s): A41.9 - Sepsis, unspecified organism; R65.21 - Severe sepsis with septic shock <SONJA Yates - Last Filed: 03/23/21 14:00> Status: Acute <SONJA Yates - Last Filed: 03/23/21 14:00> Assessment and Plan: Secondary to strep pneumonia. Blood cultures positive for strep pneumonia. Improving, off pressors. Continue antibiotics and supportive care. <SONJA Yates - Last Filed: 03/23/21 14:00> (6) Acute respiratory failure: Code(s): J96.00 - Acute respiratory failure, unspecified whether with hypoxia or hypercapnia <SONJA Yates - Last Filed: 03/23/21 14:00> Status: Acute <SONJA Yates - Last Filed: 03/23/21 14:00> Assessment and Plan: On the ventilator managed by ICU team <SONJA Yates - Last Filed: 03/23/21 14:00> (7) Hyponatremia: Code(s): E87.1 - Hypo-osmolality and hyponatremia <SONJA Yates - Last Filed: 03/23/21 14:00> Status: Acute <SONJA Yates - Last Filed: 03/23/21 14:00> Assessment and Plan: Hypokalemia and hyponatremia resolved. <SONJA Yates - Last Filed: 03/23/21 14:00> Additional Plan Attending addendum: Patient personally seen and examined at bedside. I agree with above document
[2021-03-23] MEDS: DOCUSATE SODIUM LIQ 100 MG/10 ML UDC PO ×2 (14:01→21:59)
--- NOTE | 2021-03-23 16:41 | PM.IMPN ---
Progress Note: A&P Assessment and Plan (1) Community acquired pneumonia: Qualifiers: Laterality: right Lung location: unspecified part of lung Qualified Code(s): J18.9 - Pneumonia, unspecified organism Code(s): J18.9 - Pneumonia, unspecified organism Status: Acute (2) Septic shock: Code(s): A41.9 - Sepsis, unspecified organism; R65.21 - Severe sepsis with septic shock Status: Acute (3) Acute respiratory failure: Code(s): J96.00 - Acute respiratory failure, unspecified whether with hypoxia or hypercapnia Status: Acute (4) Elevated brain natriuretic peptide (BNP) level: Code(s): R79.89 - Other specified abnormal findings of blood chemistry Status: Acute (5) Hyponatremia: Code(s): E87.1 - Hypo-osmolality and hyponatremia Status: Acute (6) Atrial fibrillation: Code(s): I48.91 - Unspecified atrial fibrillation Status: Acute (7) COPD (chronic obstructive pulmonary disease): Code(s): J44.9 - Chronic obstructive pulmonary disease, unspecified Status: Acute (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 levophed started. continue to titrate for a MAP of 65. blodo cutlure growign strep pneumoniae, lielky source pneuonia. sputum cutlrue pending. covid neative. # right lobe pneumonia: contineuv ancomycin, ceftraixone, azithromycn. check resp culture, pneumonococccal ag, mycoplasma, legionelal. check fro COVID. pneumococcal pneumonia with bacteremia. covid negative. # afib with rvr: cadiologycosnulted. on and on baord. bsack to sinus rhythm now. # Acute respiratory failure hypoxic. and hypercarbic. s/p intubation and mechincal ventilation. recheck abg in 2 hrs. adjust vent setting as needed. # Elevated BNP: echo with systolic dysfunction. # hyponatremia: monitor. mild. # DVT proph: lovenox # Full code #c ardiomyopathy: ef 5%. cardiology on board. new onset. acei, bb per cards # Bacteremia pneumococcal 03/23/21 16:41 Patient remains on ventilator acute respiratory failure secondary to community-acquired pneumonia, being treated with ceftriaxone and doxycycline, patient is seen by medical records analyst and appreciate patient also had a episodes of atrial fibrillation rate is controlled seen by cardiology patient now remains in sinus rhythm, will continue to monitor. Subjective Date/time seen: 03/23/21 16:41 Patient remains on ventilator acute respiratory failure secondary to community-acquired pneumonia, being treated with ceftriaxone and doxycycline, patient is seen by medical records analyst and appreciate patient also had a episodes of atrial fibrillation rate is controlled seen by cardiology patient now remains in sinus rhythm, will continue to monitor. Review of Systems Review of Systems: ROS unobtainable: Yes unobtainable due to endotracheal tube Exam Narrative: Exam Narrative: Patient is comfortable, NAD HEENT: ET tube in place LUNGS: Bilateral poor air entry with harsh breath sounds HEART: RR S1S2 ABD: BS+, Soft and nontender Lower extremities: no edema SKIN: nonjaundiced Neuro: Vent and sedated. Objective Data Vital Signs Vital Signs: Vital Signs - 24 hr 03/22/21 17:31 03/22/21 18:00 03/22/21 19:54 Temperature Pulse Rate 94 78 98 Respiratory Rate 22 H Blood Pressure 166/92 H Pulse O
[2021-03-23] MEDS: PROPOFOL IV EMULSION 100 ML 26 MG IV CONT ×2 (18:31→21:50)
[2021-03-23] MEDS: dexmedeTOMIDine 400 MCG/100 ML 400 MCG/100 ML BAG 9.63 MCG IV CONT (23:22)
[2021-03-24] VITALS (49 sets, daily range): BP systolic 83–128; BP diastolic 53–85; PULSE 48–93; RESP 12–35; TEMP 36.1–36.9; O2SAT 92–100
[2021-03-24] MEDS: PROPOFOL IV EMULSION 100 ML 23.11 MG IV CONT ×2 (02:04→05:38)
[2021-03-24] MEDS: ALBUTEROL SULFATE NEB 2.5 MG/0.5 ML INH INHALATION ×4 (02:22→20:08)
[2021-03-24] MEDS: IPRATROPIUM BR 0.02% INH SOLN 0.5 MG/2.5 ML VIAL INHALATION ×4 (02:23→20:09)
[2021-03-24 04:26] LABS: Hematocrit 37.1 % (42.0-52.0); Hemoglobin 11.7 g/dL (14.0-18.0); Mean Corpuscular HGB Conc 31.5 g/dl (32-36); Mean Corpuscular Hemoglobin 28.9 pg (26-34); Mean Corpuscular Volume 91.6 fl (80-100); Mean Platelet Volume 9.3 fl (7.4-10.4); Platelet Count Result 299 k/mm3 (150-375); Red Blood Count 4.05 M/mm3 (4.6-6.20); Red Cell Distribution Width 16.2 % (11.5-14.5); White Blood Count 14.2 K/mm3 (4.5-10.0)
[2021-03-24 04:37] LABS: Alanine Aminotransferase 111 U/L (4-50); Albumin Level 2.3 g/dL (3.5-5.1); Alkaline Phosphatase 75 U/L (38-126); Anion Gap 5 mmol/L (8-16); Aspartate Amino Transferase 55 U/L (17-59); Bilirubin,Total < 0.1 mg/dL (0.2-1.3); Blood Urea Nitrogen 26 mg/dL (9-20); Calcium 8.1 mg/dL (8.4-10.2); Carbon Dioxide 33 mmol/L (22-30); Chloride 106 mmol/L (98-107); Estimated CRCL calculation 106 ml/min; Estimated Glomerular Filt Rate > 60; Glucose 113 mg/dL (75-110); Magnesium 2.3 mg/dL (1.6-2.3); Potassium 4.3 mmol/L (3.4-5.0); Sodium 144 mmol/L (137-145)
[2021-03-24 04:39] LABS: Alveolar/Arterial O2 Gradient 81.4 mmHg; Base Excess ABG 5.6 mEq/l (+/-2.0); Fractional Inspired Oxygen 30 %; HCO3 ABG 29.9 mEq/l (22.0-26.0); Methemoglobin ABG 0.2 %THb (0-1.5); Oxygen Content ABG 16.9 %vol (16.0-22.0); Oxygen Saturation ABG 96.7 % (95.0-100.0); Oxyhemoglobin 95.5 % THb (90.0-100.0); PCO2 ABG 42.2 mmHg (35.0-45.0); PO2 ABG 82.9 mmHg (80.0-100.0); PO2 FiO2 Ratio Arterial Blood 2.76 %; Reduced Hemoglobin 4.3 %THb (0-5.0); Total Hemoglobin 12.5 g/dL (12.0-18.0); pH ABG 7.468 (7.350-7.450)
[2021-03-24 04:40] LABS: Arterial Blood Gas PEEP 8 cmH2O; Arterial Blood Gas Tidal Volume 420 ml; Arterial Blood Gas Vent Mode CMV; Arterial Blood Gas Ventilator rate 20 /MIN; Device VENTILATOR; Modified Allen's Test Pass; Site Drawn LEFT RADIAL
[2021-03-24] MEDS: METOCLOPRAMIDE HCL 10 MG/10 ML SOLN UDC 5 MG FEED TUBE ×3 (05:18→17:11)
[2021-03-24] MEDS: HYDROCORTISONE SODIUM SUCCINATE 100 MG/2 ML VIAL IV PUSH (05:18)
[2021-03-24] MEDS: CENTRAL LINE FLUSH 10 ML IV PUSH ×3 (05:18→20:37)
--- NOTE | 2021-03-24 08:13 | WPDINTPN ---
Progress Note: A&P Assessment and Plan (1) Acute respiratory failure: Code(s): J96.00 - Acute respiratory failure, unspecified whether with hypoxia or hypercapnia Status: Acute Assessment and Plan: Acute Respiratory failure secondary to source pneumococcal community-acquired pneumonia and baseline COPD Continue full mechanical ventilation support to prevent hypoxemia/hypercarbia and end organ damage. ABG and chest x-ray reviewed and will repeat in am. Continue tidal volume to 420 and rate to 20 Decrease PEEP to 5 Patient was placed on pressure support ventilation trial this morning Continue Bronchodilators ,Hydrocortisone Sedation holiday Continue propofol, Precedex and fentanyl for now. 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 Continue Rocephin. Patient completed 5 days of atypical coverage with doxycycline Urine Legionella negative and pneumococcal antigen pending (3) Suspected COVID-19 virus infection: Code(s): Z20.822 - Contact with and (suspected) exposure to COVID-19 Status: Acute Assessment and Plan: COVID-19 suspected in ED and PCR was ordered although clinical picture not consistent PCR came back negative and isolation discontinued (4) Septic shock: Code(s): A41.9 - Sepsis, unspecified organism; R65.21 - Severe sepsis with septic shock Status: Acute Assessment and Plan: Patient was given 1 L saline bolus in ED due to concerns of heart failure as patient elevated BNP and lower extremity edema and after intubation and sedation patient blood pressure dropped Patient was started on Levophed, and later vasopressin was added Patient has received adequate volume resuscitation and I suspect cardiogenic component to the shock. ECHO echo confirmed EF of 20-25% and dilation of right ventricle and right ventricle systolic failure Now improved and off of vasopressors Continue hydrocortisone and wean Patient also converted from AFib to sinus rhythm. Patient was not started on inotrope due to concern of recurrence atrial fibrillation (5) Systolic heart failure: Code(s): I50.20 - Unspecified systolic (congestive) heart failure Status: Acute Assessment and Plan: Summary 1. Complete two-dimensional, color flow and Doppler transthoracic echocardiogram is performed. 2. Left ventricular chamber dimension is mildly enlarged. 3. Left ventricular systolic function is severely reduced, estimated at 20-25%. 4. There is no increased left ventricular wall thickness. 5. Left ventricular septal wall motion is abnormal with septal motion related to bundle branch block. 6. The left ventricular diastolic function is grade I diastolic dysfunction. 7. Global hypokinesis of the left ventricle. 8. Right ventricular chamber dimension is severely enlarged. 9. Right ventricular systolic function is reduced. 10. Left atrial chamber dimension is mildly enlarged. 11. Right atrial chamber dimension is moderately enlarged. 12. There is moderate aortic valve sclerosis. 13. There is moderate mitral valve regurgitation. 14. There is mild to moderate tricuspid valve regurgitation. 15. Mild pulmonary hypertension, estimated pulmonary arterial systolic pressure is 39 mmHg. 16. There is mild pulmonic regurgitation. 17. The aortic root size at the sinus of Valsalva is mildly dilated. Holding further IV fluids. Patient is now diuresing well without needing vasopressors says with improvement in his blood pressure Patient was evaluated by Cardiology Started on therapeutic antico
[2021-03-24] MEDS: dexmedeTOMIDine 400 MCG/100 ML 400 MCG/100 ML BAG 16.85 MCG IV CONT (08:41)
[2021-03-24] MEDS: lisinopriL 2.5 MG TABLET PO (08:44)
[2021-03-24] MEDS: ASPIRIN 325 MG TABLET PO (08:44)
[2021-03-24] MEDS: FAMOTIDINE 20 MG/2 ML VIAL IV PUSH ×2 (08:44→20:36)
[2021-03-24] MEDS: DOCUSATE SODIUM LIQ 100 MG/10 ML UDC PO ×2 (08:44→20:35)
[2021-03-24] MEDS: ENOXAPARIN 100 MG/ML SYRINGE SUB-Q ×2 (08:45→20:36)
--- NOTE | 2021-03-24 09:18 | PM.PNCARD ---
Progress Note: A&P Additional Plan 60-year-old man with sepsis and respiratory failure necessitating intubation mechanical ventilation. Patient was transiently in atrial fibrillation at late last week when he was hemodynamically unstable. Since then he has been maintaining sinus rhythm. He is now off of pressors for couple of days and is tolerating low-dose lisinopril. Will order some furosemide today. Will also start modest dose of carvedilol today. Fletcher Amaya MD [facility] Subjective Date/time seen: Date of service: 03/24/21 09:18 Interval history: Follow-up for paroxysmal atrial fibrillation, with new onset CHF and cardiomyopathy, EF 20-25%. The patient was admitted with pneumonia requiring intubation, and septic shock with strep bacteremia. 03/20/2021: Patient had brief episode of atrial fibrillation yesterday which resolved. Today he went back and atrial fibrillation this morning with a controlled rate, heart rate 90-100. His vasopressin was discontinued a while back and Levophed weaned off this morning. Remains on ventilator, FiO2 35%. Remains on sedation with fentanyl and Versed. Date of Service 03/21/2021: Pt converted to NSR yesterday evening. REmains intubated, FiO2 30%, getting tube feedings. REmains off pressors. Trying to wean sedation but pt gets very agitated. I's and O's: 3500 cc in/5900 out spontaneously yesterday. Date of service 03/22/2021: Patient remains in NSR. No ectopy noted on telemetry overnight. He remains intubated on 30% FiO2. Sedated with propofol and fentanyl. Off pressors. BP has remained stable. Date of service 03/23/2021: Patient unable to tolerate sedation being lifted for a breathing trial - becomes agitated, tachycardic. Still in NSR. BP stable. Date of service: 03/24/2021 patient clinically without much change. Still intubated on ventilator support. X-ray does look somewhat congested. Remains off pressors. Exam Const: General: comfortable and no acute distress Orientation/consciousness: Other orientation findings (Sedated) HENMT: Head: normal to inspection General nose exam: Normal nares present Mouth: Yes moist mucous membranes Teeth and gingiva: other (missing teeth) Eyes: General: appearance normal, both eyes and all related structures Sclera: sclerae normal Neck: Neck: supple and no JVD Carotids: no bruits Resp: Effort & Inspection: normal respiratory effort (mechanially ventilated) Auscultation: clear to auscultation bilaterally (Clear anteriorly) and rhonchi right lower Cardio: Rate: regular rate Rhythm: regular rhythm Heart sounds: no murmurs GI: Inspection: distended Auscultation: normal bowel sounds Urinary Catheter: Urinary Catheter: patent and draining and urine clear Skin: General skin exam: normal color Neuro: Cognition (Neuro): abnormal cognition (sedated) Extrem: General: edema and pedal edema (trace) Psych: Mental Status: mental status grossly abnormal Objective Data Vital Signs Vital Signs: Vital Signs - 24 hr 03/23/21 09:35 03/23/21 09:37 03/23/21 09:47 Temperature Pulse Rate 75 76 76 Respiratory Rate 20 20 Blood Pressure Pulse Oximetry 99 03/23/21 10:00 03/23/21 10:40 03/23/21 10:52 Temperature Pulse Rate 79 96 91 Respiratory Rate 36 H 27 H 29 H Blood Pressure 124/69 Pulse Oximetry 99 03/23/21 10:58 03/23/21 12:00 03/23/21 12:07 Temperature 36.7 C Pulse Rate 96 74 72 Respiratory Rate 20 20 Blood Pressure 106/67 Pulse Oximetry 96 98 03/23/21 13:00 03/23/21 14:00 03/23/21 14:03 Temperature Pulse Rate 78 67 68 Respiratory Rate 21 H 20 20 Blood Pressure 103/66 Pulse Oximetry 99 03/23/21 14:14 03/23/21 14:20 03/23/21 14:22 Temperature Pulse Rate 68 66 66 Respiratory Rate 20 22 H Blood Pressure Pulse Oximetry 100 03/23/21 14:24 03/23/21 15:09 03/23/21 15:27 Temperature Pulse Rate 68 91 87 Respiratory Rate 21 H 27 H 26 H Blood Pressure Pu
[2021-03-24] MEDS: FUROSEMIDE INJ 40 MG/4 ML VIAL 20 MG IV PUSH (09:57)
--- NOTE | 2021-03-24 11:24 | PCDIET ---
ICU Rounding Note: Patient tolerating Jevity 1.2 at 50ml/hr with 30mL water flush every 4 hours. Last recorded weight is 96.3kg which is decreased from last review. +I/O. Will monitor. Bowel Motility: BM x 1 on 03/23/21. Labs Reviewed: WBC (14.2), Hct (37.1), Glu (113), BUN (26), Alb (2.3), Paul Ca (9.46) Meds Noted: Albuterol, Colace, Pepcid, Prednisone, Lasix, Coreg, Precedex, Fentanyl, Atrovent, Prinivil, Reglan, Propofol (rate of 14.445mL/hr provides 381kcal per day) Additional Notes: No documented skin breakdown. Following daily in ICU rounds. Assessing/reassessing every Monday/Monday.
[2021-03-24] MEDS: dexmedeTOMIDine 400 MCG/100 ML 400 MCG/100 ML BAG 21.67 MCG IV CONT ×3 (14:14→22:52)
[2021-03-24] MEDS: PROPOFOL IV EMULSION 100 ML 11.56 MG IV CONT ×2 (14:30→22:51)
--- NOTE | 2021-03-24 16:07 | PM.IMPN ---
Progress Note: A&P Additional Plan # septic shock: likely from pneumonia. levophed started. continue to titrate for a MAP of 65. blodo cutlure growign strep pneumoniae, lielky source pneuonia. sputum cutlrue pending. covid neative. # right lobe pneumonia: contineuv ancomycin, ceftraixone, azithromycn. check resp culture, pneumonococccal ag, mycoplasma, legionelal. check fro COVID. pneumococcal pneumonia with bacteremia. covid negative. # afib with rvr: cadiologycosnulted. on and on baord. bsack to sinus rhythm now. # Acute respiratory failure hypoxic. and hypercarbic. s/p intubation and mechincal ventilation. recheck abg in 2 hrs. adjust vent setting as needed. # Elevated BNP: echo with systolic dysfunction. # hyponatremia: monitor. mild. # DVT proph: lovenox # Full code #c ardiomyopathy: ef 5%. cardiology on board. new onset. acei, bb per cards # Bacteremia pneumococcal 03/24/21 16:07 03/23 Patient remains on ventilator acute respiratory failure secondary to community-acquired pneumonia, being treated with ceftriaxone and doxycycline, patient is seen by office support specialist and appreciate patient also had a episodes of atrial fibrillation rate is controlled seen by cardiology patient now remains in sinus rhythm, will continue to monitor. 03/24 Patient remains on ventilator acute respiratory failure secondary to community-acquired pneumonia, being treated with ceftriaxone and doxycycline, today patient was given trial of SBT however was not able to tolerate patient remains on ventilator patient is seen office support specialist and appreciate. Subjective Date/time seen: 03/24/21 16:07 03/23 Patient remains on ventilator acute respiratory failure secondary to community-acquired pneumonia, being treated with ceftriaxone and doxycycline, patient is seen by office support specialist and appreciate patient also had a episodes of atrial fibrillation rate is controlled seen by cardiology patient now remains in sinus rhythm, will continue to monitor. 03/24 Patient remains on ventilator acute respiratory failure secondary to community-acquired pneumonia, being treated with ceftriaxone and doxycycline, today patient was given trial of SBT however was not able to tolerate patient remains on ventilator patient is seen office support specialist and appreciate. Review of Systems Review of Systems: All systems reviewed & are unremarkable except as noted in HPI and below Exam Narrative: Exam Narrative: Patient is comfortable, NAD HEENT: ET tube in place LUNGS: Bilateral poor air entry with harsh breath sounds HEART: RR S1S2 ABD: BS+, Soft and nontender Lower extremities: no edema SKIN: nonjaundiced Neuro: Vent and sedated. Objective Data Vital Signs Vital Signs: Vital Signs - 24 hr 03/23/21 17:45 03/23/21 17:56 03/23/21 17:57 Temperature Pulse Rate 58 L 60 62 Respiratory Rate 20 20 Blood Pressure Pulse Oximetry 99 03/23/21 18:00 03/23/21 18:05 03/23/21 18:31 Temperature Pulse Rate 76 76 87 Respiratory Rate 20 20 28 H Blood Pressure 95/59 L Pulse Oximetry 99 03/23/21 19:20 03/23/21 20:00 03/23/21 21:21 Temperature Pulse Rate 99 87 77 Respiratory Rate 28 H 25 H 23 H Blood Pressure 119/70 Pulse Oximetry 96 99 03/23/21 21:32 03/23/21 21:50 03/23/21 22:00 Temperature Pulse Rate 73 69 68 Respiratory Rate 20 20 22 H Blood Pressure 95/59 L Pulse Oximetry 100 03/23/21 23:10 03/23/21 23:22 03/23/21 23:55 Temperature Pulse Rate 61 63 63 Respiratory Rate 20 20 Blood Pressure Pulse Oximetry 100 100 03/24/21 00:00 03/24/21 01:41 03/24/21 02:00 Temperature 97.7 F Pulse Rate 64 73 79 Respiratory Rate 20 22 H 24 H Blood Pressure 98/61 L 114/67 Pulse Oximetry 100 96 03/24/21 02:04 03/24/21 02:23 03/24/21 02:25 Temperature Pulse Rate 74 73 76 Respiratory Rate 22 H 22 H Blood Pressure Pulse Oximetry 95 03/24/21 02:33 03/24/21 02:56 03/24/21 03:34 Temperature Pulse Rate 76 82 85 Respiratory Ra
[2021-03-24 17:52] LABS: Pneumococcal Antigen Urine Detected (Not Detected)
[2021-03-24] MEDS: FENTANYL 2,500MCG/NS250ML(*CRX 2,500 MCG/250 ML BAG IV CONT (22:53)
[2021-03-25] VITALS (46 sets, daily range): BP systolic 87–146; BP diastolic 50–81; PULSE 50–80; RESP 14–29; TEMP 36.5–37.6; O2SAT 91–95
[2021-03-25] MEDS: METOCLOPRAMIDE HCL 10 MG/10 ML SOLN UDC 5 MG FEED TUBE ×2 (00:12→05:31)
[2021-03-25] MEDS: IPRATROPIUM BR 0.02% INH SOLN 0.5 MG/2.5 ML VIAL INHALATION ×4 (02:30→21:22)
[2021-03-25] MEDS: ALBUTEROL SULFATE NEB 2.5 MG/0.5 ML INH INHALATION ×4 (02:30→21:22)
[2021-03-25] MEDS: dexmedeTOMIDine 400 MCG/100 ML 400 MCG/100 ML BAG 21.67 MCG IV CONT ×2 (03:49→22:20)
[2021-03-25 04:23] LABS: Base Excess ABG 9.5 mEq/l (+/-2.0); Carboxyhemoglobin 0.4 % THb (0-2.0); Fractional Inspired Oxygen 30 %; HCO3 ABG 33.8 mEq/l (22.0-26.0); Methemoglobin ABG 0.2 %THb (0-1.5); Oxygen Content ABG 17.7 %vol (16.0-22.0); Oxygen Saturation ABG 90.8 % (95.0-100.0); Oxyhemoglobin 88.8 % THb (90.0-100.0); PCO2 ABG 44.4 mmHg (35.0-45.0); PO2 ABG 54.7 mmHg (80.0-100.0); PO2 FiO2 Ratio Arterial Blood 1.82 %; Reduced Hemoglobin 10.6 %THb (0-5.0); Total Hemoglobin 14.2 g/dL (12.0-18.0)
[2021-03-25 04:25] LABS: Arterial Blood Gas Vent Mode ASV; Device VENTILATOR; Modified Allen's Test Pass; Site Drawn LEFT RADIAL
[2021-03-25 04:26] LABS: Arterial Blood Gas PEEP 5 cmH2O
[2021-03-25 04:53] LABS: Hematocrit 37.5 % (42.0-52.0); Hemoglobin 11.9 g/dL (14.0-18.0); Mean Corpuscular HGB Conc 31.7 g/dl (32-36); Mean Corpuscular Hemoglobin 29.5 pg (26-34); Mean Corpuscular Volume 92.8 fl (80-100); Mean Platelet Volume 9.4 fl (7.4-10.4); Platelet Count Result 290 k/mm3 (150-375); Red Blood Count 4.04 M/mm3 (4.6-6.20); Red Cell Distribution Width 16.3 % (11.5-14.5); White Blood Count 15.2 K/mm3 (4.5-10.0)
[2021-03-25 05:09] LABS: Alanine Aminotransferase 74 U/L (4-50); Albumin Level 2.4 g/dL (3.5-5.1); Alkaline Phosphatase 68 U/L (38-126); Anion Gap 4 mmol/L (8-16); Aspartate Amino Transferase 35 U/L (17-59); Bilirubin,Total 0.3 mg/dL (0.2-1.3); Blood Urea Nitrogen 31 mg/dL (9-20); Calcium 8.2 mg/dL (8.4-10.2); Carbon Dioxide 32 mmol/L (22-30); Chloride 107 mmol/L (98-107); Estimated CRCL calculation 94 ml/min; Estimated Glomerular Filt Rate > 60; Glucose 97 mg/dL (75-110); Magnesium 2.2 mg/dL (1.6-2.3); Potassium 3.6 mmol/L (3.4-5.0); Sodium 143 mmol/L (137-145)
[2021-03-25] MEDS: CENTRAL LINE FLUSH 10 ML IV PUSH ×3 (05:32→20:07)
[2021-03-25] MEDS: POTASSIUM CHLORIDE 20 MEQ PACKET (FOR LIQUID) 40 MEQ FEED TUBE (07:38)
[2021-03-25] MEDS: FUROSEMIDE INJ 40 MG/4 ML VIAL IV PUSH (07:38)
[2021-03-25] MEDS: FAMOTIDINE 20 MG/2 ML VIAL IV PUSH ×2 (07:57→20:07)
[2021-03-25] MEDS: carvediloL 3.125 MG TABLET PO ×2 (07:57→20:07)
[2021-03-25] MEDS: predniSONE 20 MG TABLET 40 MG PO (07:57)
[2021-03-25] MEDS: ENOXAPARIN 100 MG/ML SYRINGE SUB-Q ×2 (07:57→20:07)
[2021-03-25] MEDS: ASPIRIN 325 MG TABLET PO (07:57)
[2021-03-25] MEDS: lisinopriL 2.5 MG TABLET PO (07:58)
[2021-03-25] MEDS: DOCUSATE SODIUM LIQ 100 MG/10 ML UDC PO (07:58)
--- NOTE | 2021-03-25 08:36 | WPDINTPN ---
Progress Note: A&P Assessment and Plan (1) Acute respiratory failure: Code(s): J96.00 - Acute respiratory failure, unspecified whether with hypoxia or hypercapnia Status: Acute Assessment and Plan: Acute Respiratory failure secondary to source pneumococcal community-acquired pneumonia and baseline COPD Continue full mechanical ventilation support to prevent hypoxemia/hypercarbia and end organ damage. ABG and chest x-ray reviewed and will repeat in am. Patient failed weaning trial yesterday and was switched to ASV ABG reviewed change the ASV to 80% minute ventilation Will try weaning trial again today Patient was given Lasix yesterday and will continue today Continue Bronchodilators , prednisone Sedation holiday On propofol, Precedex and fentanyl for now. 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 Continue Rocephin. Patient completed 5 days of atypical coverage with doxycycline Urine Legionella negative and pneumococcal antigen pending (3) Suspected COVID-19 virus infection: Code(s): Z20.822 - Contact with and (suspected) exposure to COVID-19 Status: Acute Assessment and Plan: COVID-19 suspected in ED and PCR was ordered although clinical picture not consistent PCR came back negative and isolation discontinued (4) Septic shock: Code(s): A41.9 - Sepsis, unspecified organism; R65.21 - Severe sepsis with septic shock Status: Acute Assessment and Plan: Patient was given 1 L saline bolus in ED due to concerns of heart failure as patient elevated BNP and lower extremity edema and after intubation and sedation patient blood pressure dropped Patient was started on Levophed, and later vasopressin was added Patient has received adequate volume resuscitation and I suspect cardiogenic component to the shock. ECHO echo confirmed EF of 20-25% and dilation of right ventricle and right ventricle systolic failure Now improved and off of vasopressors Continue hydrocortisone and wean Patient also converted from AFib to sinus rhythm. Patient was not started on inotrope due to concern of recurrence atrial fibrillation (5) Systolic heart failure: Code(s): I50.20 - Unspecified systolic (congestive) heart failure Status: Acute Assessment and Plan: Summary 1. Complete two-dimensional, color flow and Doppler transthoracic echocardiogram is performed. 2. Left ventricular chamber dimension is mildly enlarged. 3. Left ventricular systolic function is severely reduced, estimated at 20-25%. 4. There is no increased left ventricular wall thickness. 5. Left ventricular septal wall motion is abnormal with septal motion related to bundle branch block. 6. The left ventricular diastolic function is grade I diastolic dysfunction. 7. Global hypokinesis of the left ventricle. 8. Right ventricular chamber dimension is severely enlarged. 9. Right ventricular systolic function is reduced. 10. Left atrial chamber dimension is mildly enlarged. 11. Right atrial chamber dimension is moderately enlarged. 12. There is moderate aortic valve sclerosis. 13. There is moderate mitral valve regurgitation. 14. There is mild to moderate tricuspid valve regurgitation. 15. Mild pulmonary hypertension, estimated pulmonary arterial systolic pressure is 39 mmHg. 16. There is mild pulmonic regurgitation. 17. The aortic root size at the sinus of Valsalva is mildly dilated. Holding further IV fluids. Continue Lasix Patient was evaluated by Cardiology Started on therapeutic anticoagulation (6) Lived
[2021-03-25] MEDS: dexmedeTOMIDine 400 MCG/100 ML 400 MCG/100 ML BAG 36.11 MCG IV CONT (08:44)
--- NOTE | 2021-03-25 09:48 | PM.PNCARD ---
Progress Note: A&P Assessment and Plan (1) Atrial fibrillation: Code(s): I48.91 - Unspecified atrial fibrillation Status: Acute Assessment and Plan: New onset of parosyxmal AFib secondary to acute illness. Heart rate in aa fib was controlled on no rate-controlling medications suggesting some AV node disease. Currently back in NSR, with full-dose Lovenox. Will not resume amiodarone in an attempt pharmacologic cardioversion because of elevated liver enzymes, though they are improving. (2) Systolic heart failure: Code(s): I50.20 - Unspecified systolic (congestive) heart failure Status: Acute Assessment and Plan: New onset? systolic congestive heart failure. Has received a lot of IV fluids this admission but appears to be spontaneously diuresing, so far. BP acceptable to initiate low dose SHILO. Will titrate and introduce additional heart failure agents as blood pressure and heart rate tolerate. agree with IV lasix 40mg x1 today. (3) Cardiomyopathy: Code(s): I42.9 - Cardiomyopathy, unspecified Status: Acute Assessment and Plan: Four-chamber cardiac enlargement with EF of 20-25%, mod MR and RV hypokinesis. (4) Community acquired pneumonia: Qualifiers: Laterality: right Lung location: unspecified part of lung Qualified Code(s): J18.9 - Pneumonia, unspecified organism Code(s): J18.9 - Pneumonia, unspecified organism Status: Acute Assessment and Plan: Appears to be strep pneumonia. Continue antibiotics (5) Septic shock: Code(s): A41.9 - Sepsis, unspecified organism; R65.21 - Severe sepsis with septic shock Status: Acute Assessment and Plan: Secondary to strep pneumonia. Blood cultures positive for strep pneumonia. Improving, off pressors. Continue antibiotics and supportive care. (6) Acute respiratory failure: Code(s): J96.00 - Acute respiratory failure, unspecified whether with hypoxia or hypercapnia Status: Acute Assessment and Plan: On the ventilator managed by ICU team (7) Hyponatremia: Code(s): E87.1 - Hypo-osmolality and hyponatremia Status: Acute Assessment and Plan: Hypokalemia and hyponatremia resolved. Additional Plan Fletcher Amaya MD [facility] Subjective Date/time seen: 03/25/21 09:48 Interval history: Follow-up for paroxysmal atrial fibrillation, with new onset CHF and cardiomyopathy, EF 20-25%. The patient was admitted with pneumonia requiring intubation, and septic shock with strep bacteremia. 03/20/2021: Patient had brief episode of atrial fibrillation yesterday which resolved. Today he went back and atrial fibrillation this morning with a controlled rate, heart rate 90-100. His vasopressin was discontinued a while back and Levophed weaned off this morning. Remains on ventilator, FiO2 35%. Remains on sedation with fentanyl and Versed. Date of Service 03/21/2021: Pt converted to NSR yesterday evening. REmains intubated, FiO2 30%, getting tube feedings. REmains off pressors. Trying to wean sedation but pt gets very agitated. I's and O's: 3500 cc in/5900 out spontaneously yesterday. Date of service 03/22/2021: Patient remains in NSR. No ectopy noted on telemetry overnight. He remains intubated on 30% FiO2. Sedated with propofol and fentanyl. Off pressors. BP has remained stable. Date of service 03/23/2021: Patient unable to tolerate sedation being lifted for a breathing trial - becomes agitated, tachycardic. Still in NSR. BP stable. Date of service: 03/24/2021 patient clinically without much change. Still intubated on
[2021-03-25 11:05] LABS: Alveolar/Arterial O2 Gradient 105.6 mmHg; Base Excess ABG 9.3 mEq/l (+/-2.0); Fractional Inspired Oxygen 30 %; HCO3 ABG 33.3 mEq/l (22.0-26.0); Oxygen Content ABG 17.4 %vol (16.0-22.0); Oxygen Saturation ABG 92.5 % (95.0-100.0); PCO2 ABG 42.6 mmHg (35.0-45.0); PO2 ABG 58.2 mmHg (80.0-100.0); PO2 FiO2 Ratio Arterial Blood 1.94 %; Total Hemoglobin 13.6 g/dL (12.0-18.0)
[2021-03-25 11:06] LABS: Arterial Blood Gas PEEP 5 cmH2O; Arterial Blood Gas Pressure Support 5 cmH2O; Arterial Blood Gas Vent Mode SPONTANEOUS; Device VENTILATOR; Site Drawn RIGHT BRACHIAL; pH ABG 7.511 (7.350-7.450)
--- NOTE | 2021-03-25 11:19 | PCDIET ---
ICU Rounding Note: Tube feedings held for SBT. Previously tolerating at goal rate. If unable to extubate, recommend resuming Jevity 1.2 at 50mL/hr x 22 hours day with addition of Pro-Stat BID for 200kcal and 30g protein to ensure protein needs are being met. Last recorded weight is 96.3kg which is decreased from last review. +I/O. Bowel Motility: BM x 1 on 03/23/21. Labs Reviewed: WBC (15.2), Hgb (11.9), Hct (37.5), BUN (31), Alb (2.4), Paul Ca (9.48) Meds Noted: Albuterol, Colace, Pepcid, Prednisone, Lasix, Coreg, Precedex, Fentanyl, Atrovent, Prinivil, Reglan, KCl, Propofol (rate of 2.89mL/hr provides 76kcal per day) Additional Notes: No documented skin breakdown. Following daily in ICU rounds. Assessing/reassessing every Monday/Monday.
[2021-03-25] MEDS: PROPOFOL IV EMULSION 100 ML 5.78 MG IV CONT (11:37)
[2021-03-25] MEDS: dexmedeTOMIDine 400 MCG/100 ML 400 MCG/100 ML BAG 33.71 MCG IV CONT (11:43)
[2021-03-25] MEDS: dexmedeTOMIDine 400 MCG/100 ML 400 MCG/100 ML BAG 31.3 MCG IV CONT (14:58)
--- NOTE | 2021-03-25 17:08 | PM.IMPN ---
Progress Note: A&P Additional Plan # septic shock: likely from pneumonia. levophed started. continue to titrate for a MAP of 65. blodo cutlure growign strep pneumoniae, lielky source pneuonia. sputum cutlrue pending. covid neative. # right lobe pneumonia: contineuv ancomycin, ceftraixone, azithromycn. check resp culture, pneumonococccal ag, mycoplasma, legionelal. check fro COVID. pneumococcal pneumonia with bacteremia. covid negative. # afib with rvr: cadiologycosnulted. on and on baord. bsack to sinus rhythm now. # Acute respiratory failure hypoxic. and hypercarbic. s/p intubation and mechincal ventilation. recheck abg in 2 hrs. adjust vent setting as needed. # Elevated BNP: echo with systolic dysfunction. # hyponatremia: monitor. mild. # DVT proph: lovenox # Full code #c ardiomyopathy: ef 5%. cardiology on board. new onset. acei, bb per cards # Bacteremia pneumococcal 03/25/21 17:08 03/23 Patient remains on ventilator acute respiratory failure secondary to community-acquired pneumonia, being treated with ceftriaxone and doxycycline, patient is seen by circuit breaker supervisor and appreciate patient also had a episodes of atrial fibrillation rate is controlled seen by cardiology patient now remains in sinus rhythm, will continue to monitor. 03/24 Patient remains on ventilator acute respiratory failure secondary to community-acquired pneumonia, being treated with ceftriaxone and doxycycline, today patient was given trial of SBT however was not able to tolerate patient remains on ventilator patient is seen circuit breaker supervisor and appreciate. 03/25 patient remains on ventilator patient was given trial of SBT to wean the patient off however failed, seen by fiscal technician not requiring any pressors and not in AFib, patient seen circuit breaker supervisor and Cardiology and appreciate. Subjective Date/time seen: 03/25/21 17:08 03/23 Patient remains on ventilator acute respiratory failure secondary to community-acquired pneumonia, being treated with ceftriaxone and doxycycline, patient is seen by circuit breaker supervisor and appreciate patient also had a episodes of atrial fibrillation rate is controlled seen by cardiology patient now remains in sinus rhythm, will continue to monitor. 03/24 Patient remains on ventilator acute respiratory failure secondary to community-acquired pneumonia, being treated with ceftriaxone and doxycycline, today patient was given trial of SBT however was not able to tolerate patient remains on ventilator patient is seen circuit breaker supervisor and appreciate. 03/25 patient remains on ventilator patient was given trial of SBT to wean the patient off however failed, seen by fiscal technician not requiring any pressors and not in AFib, patient seen circuit breaker supervisor and Cardiology and appreciate. Review of Systems Review of Systems: ROS unobtainable: Yes unobtainable due to endotracheal tube Exam Narrative: Exam Narrative: Patient is comfortable, NAD HEENT: ET tube in place LUNGS: Bilateral poor air entry with harsh breath sounds HEART: RR S1S2 ABD: BS+, Soft and nontender Lower extremities: no edema SKIN: nonjaundiced Neuro: Vent and sedated. Objective Data Vital Signs Vital Signs: Vital Signs - 24 hr 03/24/21 18:00 03/24/21 18:51 03/24/21 19:09 Temperature Pulse Rate 50 L 51 L 51 L Respiratory Rate 12 20 20 Blood Pressure 104/61 Pulse Oximetry 94 03/24/21 20:00 03/24/21 20:11 03/24/21 20:14 Temperature 98.5 F Pulse Rate 53 L 52 L 52 L Respiratory Rate 17 15 Blood Pressure 103/62 Pulse Oximetry 93 93 03/24/21 20:24 03/24/21 20:41 03/24/21 20:42 Temperature Pulse Rate 54 L 52 L 53 L Respiratory Rate 15 14 Blood Pressure Pulse Oximetry 03/24/21 21:50 03/24/21 21:51 03/24/21 22:53 Temperature Pulse Rate 50 L 51 L 51 L Respiratory Rate 18 13 Blood Pressure 92/57 L Pulse Oximetry 94 03/24/21 23:15 03/25/21 00:00 03/25/21 00:52 Temperature 99.6 F Pulse Rate 53 L 56 L Respiratory Rate 17 Blood Pressure 87/50
[2021-03-25 17:23] LABS: Anion Gap 2 mmol/L (8-16); Blood Urea Nitrogen 30 mg/dL (9-20); Carbon Dioxide 34 mmol/L (22-30); Chloride 105 mmol/L (98-107); Estimated CRCL calculation 106 ml/min; Estimated Glomerular Filt Rate > 60; Glucose 147 mg/dL (75-110); Sodium 141 mmol/L (137-145)
[2021-03-25] MEDS: dexmedeTOMIDine 400 MCG/100 ML 400 MCG/100 ML BAG 26.48 MCG IV CONT (18:33)
[2021-03-25] MEDS: PROPOFOL IV EMULSION 100 ML 8.67 MG IV CONT (23:08)
[2021-03-26] VITALS (58 sets, daily range): BP systolic 87–153; BP diastolic 52–75; PULSE 44–83; RESP 12–27; TEMP 36.8–37.6; O2SAT 93–97
[2021-03-26] MEDS: IPRATROPIUM BR 0.02% INH SOLN 0.5 MG/2.5 ML VIAL INHALATION ×4 (02:24→19:50)
[2021-03-26] MEDS: ALBUTEROL SULFATE NEB 2.5 MG/0.5 ML INH INHALATION ×4 (02:24→19:50)
[2021-03-26] MEDS: dexmedeTOMIDine 400 MCG/100 ML 400 MCG/100 ML BAG 21.67 MCG IV CONT ×5 (03:17→22:04)
[2021-03-26 05:58] LABS: Base Excess ABG 8.2 mEq/l (+/-2.0); Carboxyhemoglobin 0.3 % THb (0-2.0); Fractional Inspired Oxygen 30 %; HCO3 ABG 31.1 mEq/l (22.0-26.0); Methemoglobin ABG 0.2 %THb (0-1.5); Oxygen Content ABG 16.3 %vol (16.0-22.0); Oxygen Saturation ABG 96.3 % (95.0-100.0); PCO2 ABG 36.9 mmHg (35.0-45.0); PO2 ABG 73.5 mmHg (80.0-100.0); PO2 FiO2 Ratio Arterial Blood 2.45 %; Reduced Hemoglobin 5.5 %THb (0-5.0); Total Hemoglobin 12.3 g/dL (12.0-18.0)
[2021-03-26 06:02] LABS: Device VENTILATOR; Modified Allen's Test Pass; Site Drawn LEFT RADIAL; pH ABG 7.543 (7.350-7.450)
[2021-03-26 06:03] LABS: Arterial Blood Gas PEEP 5 cmH2O; Arterial Blood Gas Vent Mode ASV
[2021-03-26] MEDS: CENTRAL LINE FLUSH 10 ML IV PUSH ×3 (06:07→20:19)
[2021-03-26 06:29] LABS: Hematocrit 35.6 % (42.0-52.0); Hemoglobin 11.4 g/dL (14.0-18.0); Mean Corpuscular Hemoglobin 29.2 pg (26-34); Mean Platelet Volume 9.3 fl (7.4-10.4); Platelet Count Result 269 k/mm3 (150-375); Red Blood Count 3.91 M/mm3 (4.6-6.20); Red Cell Distribution Width 15.9 % (11.5-14.5); White Blood Count 11.7 K/mm3 (4.5-10.0)
[2021-03-26 06:35] LABS: Magnesium 2.2 mg/dL (1.6-2.3); Phosphorus 4.2 mg/dL (2.5-4.5)
[2021-03-26 06:36] LABS: Alanine Aminotransferase 56 U/L (4-50); Albumin Level 2.5 g/dL (3.5-5.1); Alkaline Phosphatase 69 U/L (38-126); Anion Gap 2 mmol/L (8-16); Aspartate Amino Transferase 36 U/L (17-59); Bilirubin,Total 0.3 mg/dL (0.2-1.3); Blood Urea Nitrogen 29 mg/dL (9-20); Calcium 8.3 mg/dL (8.4-10.2); Carbon Dioxide 34 mmol/L (22-30); Chloride 104 mmol/L (98-107); Estimated CRCL calculation 106 ml/min; Estimated Glomerular Filt Rate > 60; Glucose 126 mg/dL (75-110); Potassium 3.6 mmol/L (3.4-5.0); Sodium 140 mmol/L (137-145)
[2021-03-26] MEDS: lisinopriL 2.5 MG TABLET PO (08:05)
[2021-03-26] MEDS: predniSONE 20 MG TABLET 40 MG PO (08:05)
[2021-03-26] MEDS: carvediloL 3.125 MG TABLET PO ×2 (08:05→21:01)
[2021-03-26] MEDS: ASPIRIN 325 MG TABLET PO (08:05)
[2021-03-26] MEDS: FAMOTIDINE 20 MG/2 ML VIAL IV PUSH ×2 (08:05→20:18)
[2021-03-26] MEDS: ENOXAPARIN 100 MG/ML SYRINGE SUB-Q ×2 (08:05→20:18)
[2021-03-26] MEDS: FUROSEMIDE INJ 40 MG/4 ML VIAL IV PUSH (08:33)
[2021-03-26] MEDS: POTASSIUM CHLORIDE 20 MEQ PACKET (FOR LIQUID) 40 MEQ FEED TUBE (08:33)
--- NOTE | 2021-03-26 08:43 | PM.PNCARD ---
Progress Note: A&P Assessment and Plan (1) Atrial fibrillation: Code(s): I48.91 - Unspecified atrial fibrillation <SONJA Yates - Last Filed: 03/26/21 08:54> Status: Acute <SONJA Yates - Last Filed: 03/26/21 08:54> Assessment and Plan: New onset of parosyxmal AFib secondary to acute illness. Heart rate in aa fib was controlled on no rate-controlling medications suggesting some AV node disease. Currently back in NSR, with full-dose Lovenox. Will not resume amiodarone in an attempt pharmacologic cardioversion because of elevated liver enzymes, though they are improving. <SNOJA Yates - Last Filed: 03/26/21 08:54> (2) Systolic heart failure: Code(s): I50.20 - Unspecified systolic (congestive) heart failure <SONJA Yates - Last Filed: 03/26/21 08:54> Status: Acute <SONJA Yates - Last Filed: 03/26/21 08:54> Assessment and Plan: New onset? systolic congestive heart failure. Has received a lot of IV fluids this admission but appears to be spontaneously diuresing, so far. BP acceptable to initiate low dose SHILO. Will titrate and introduce additional heart failure agents as blood pressure and heart rate tolerate. <SONJA Yates - Last Filed: 03/26/21 08:54> (3) Cardiomyopathy: Code(s): I42.9 - Cardiomyopathy, unspecified <SONJA Yates - Last Filed: 03/26/21 08:54> Status: Acute <SONJA Yates - Last Filed: 03/26/21 08:54> Assessment and Plan: Four-chamber cardiac enlargement with EF of 20-25%, mod MR and RV hypokinesis. <SONJA Yates - Last Filed: 03/26/21 08:54> (4) Community acquired pneumonia: Qualifiers: Laterality: right Lung location: unspecified part of lung Qualified Code(s): J18.9 - Pneumonia, unspecified organism <SONJA Yates - Last Filed: 03/26/21 08:54> Code(s): J18.9 - Pneumonia, unspecified organism <SONJA Yates - Last Filed: 03/26/21 08:54> Status: Acute <SONJA Yates - Last Filed: 03/26/21 08:54> Assessment and Plan: Appears to be strep pneumonia. Continue antibiotics <SONJA Yates - Last Filed: 03/26/21 08:54> (5) Septic shock: Code(s): A41.9 - Sepsis, unspecified organism; R65.21 - Severe sepsis with septic shock <SONJA Yates - Last Filed: 03/26/21 08:54> Status: Acute <SONJA Yates - Last Filed: 03/26/21 08:54> Assessment and Plan: Secondary to strep pneumonia. Blood cultures positive for strep pneumonia. Improving, off pressors. Continue antibiotics and supportive care. <SONJA Yates - Last Filed: 03/26/21 08:54> (6) Acute respiratory failure: Code(s): J96.00 - Acute respiratory failure, unspecified whether with hypoxia or hypercapnia <SONJA Yates - Last Filed: 03/26/21 08:54> Status: Acute <SONJA Yates - Last Filed: 03/26/21 08:54> Assessment and Plan: On the ventilator managed by ICU team <SONJA Yates - Last Filed: 03/26/21 08:54> (7) Hyponatremia: Code(s): E87.1 - Hypo-osmolality and hyponatremia <SONJA Yates - Last Filed: 03/26/21 08:54> Status: Acute <SONJA Yates - Last Filed: 03/26/21 08:54> Assessment and Plan: Hypokalemia and hyponatremia resolved. <SONJA Yates - Last Filed: 03/26/21 08:54> Additional Plan Attending addendum: I have personally seen and examined patient at bedside. I agree with above
[2021-03-26] MEDS: PROPOFOL IV EMULSION 100 ML 17.33 MG IV CONT (09:22)
--- NOTE | 2021-03-26 09:44 | WPDINTPN ---
Progress Note: A&P Assessment and Plan (1) Acute respiratory failure: Code(s): J96.00 - Acute respiratory failure, unspecified whether with hypoxia or hypercapnia Status: Acute Assessment and Plan: Acute Respiratory failure secondary to source pneumococcal community-acquired pneumonia and baseline COPD Continue full mechanical ventilation support to prevent hypoxemia/hypercarbia and end organ damage. ABG and chest x-ray reviewed and will repeat in am. Patient has failed daily weaning trial for last few days. Patient again failed 5/5 SBT PSV trial today due to high RSBI and respiratory distress. Patient placed back on ASV ABG reviewed change the ASV to 60% minute ventilation Continue Lasix Continue Bronchodilators , Completed course of steroids Daily Sedation holiday On propofol, Precedex for now. (2) Community acquired pneumonia: Qualifiers: Laterality: right Lung location: unspecified part of lung Qualified Code(s): J18.9 - Pneumonia, unspecified organism Code(s): J18.9 - Pneumonia, unspecified organism Status: Acute Assessment and Plan: Pneumococcal community-acquired pneumonia Blood culture is growing Streptococcus pneumoniae Discontinued vancomycin. Continue Rocephin. Patient completed 5 days of atypical coverage with doxycycline Urine Legionella negative and pneumococcal antigen pending (3) Suspected COVID-19 virus infection: Code(s): Z20.822 - Contact with and (suspected) exposure to COVID-19 Status: Acute Assessment and Plan: COVID-19 suspected in ED and PCR was ordered although clinical picture not consistent PCR came back negative and isolation discontinued (4) Septic shock: Code(s): A41.9 - Sepsis, unspecified organism; R65.21 - Severe sepsis with septic shock Status: Acute Assessment and Plan: Patient was given 1 L saline bolus in ED due to concerns of heart failure as patient elevated BNP and lower extremity edema and after intubation and sedation patient blood pressure dropped Patient was started on Levophed, and later vasopressin was added Patient has received adequate volume resuscitation and I suspect cardiogenic component to the shock. ECHO echo confirmed EF of 20-25% and dilation of right ventricle and right ventricle systolic failure Now improved and off of vasopressors Off hydrocortisone now Patient also converted from AFib to sinus rhythm. Patient was not started on inotrope due to concern of recurrence atrial fibrillation (5) Systolic heart failure: Code(s): I50.20 - Unspecified systolic (congestive) heart failure Status: Acute Assessment and Plan: Summary 1. Complete two-dimensional, color flow and Doppler transthoracic echocardiogram is performed. 2. Left ventricular chamber dimension is mildly enlarged. 3. Left ventricular systolic function is severely reduced, estimated at 20-25%. 4. There is no increased left ventricular wall thickness. 5. Left ventricular septal wall motion is abnormal with septal motion related to bundle branch block. 6. The left ventricular diastolic function is grade I diastolic dysfunction. 7. Global hypokinesis of the left ventricle. 8. Right ventricular chamber dimension is severely enlarged. 9. Right ventricular systolic function is reduced. 10. Left atrial chamber dimension is mildly enlarged. 11. Right atrial chamber dimension is moderately enlarged. 12. There is moderate aortic valve sclerosis. 13. There is moderate mitral valve regurgitation. 14. There is mild to moderate tricuspid valve regurgitation. 15. Mild pulmonary hypertension, estimated pulmonary arterial systolic pressure is 39 mmHg. 16. There is mild pulmonic regurgitation. 17. The aortic root size at the sinus of Valsalva is mildly dilated. Holding further IV fluids. Continue Lasix Patient was evaluated by Cardiology Started on therapeutic anticoagulation (6) Livedo reticul
--- NOTE | 2021-03-26 12:12 | PCNFU ---
Nutrition Follow-Up Complete: Inadequate oral intake related to oral intubation as evidenced by need for enteral feeding. Goal:Patient to meet estimated nutritional needs. Progressing towards goal. We will continue current goal. Pt current nutrition is Jevity 1.2 at 50 ml/hr with Protein Modular-Prostat flush BID. Last recorded weight is 99.2 kg, up from 96.3 kg on admit. Bowel Motility: +BM reported 03/25 Labs Reviewed:Glu 126,BUN 29,Alb 2.5,Hct 35.6,Hgb 11.4 Meds Noted:Versed,Prinivil, Atrovent,Lasix,Pepcid,Lovenox,Fentanyl, Rocephin,Precedex, Propofol at 157.33 ml/hr(457.541 kcals) Additional Notes: Nutrition follow up. Mechanical Vent. Patient continues to tolerate tube feedings of Jevity 1.2 at 50ml/hr. Total kcals from tube feeding/Prostat and dmbthvlv=5122 kcals and 91 gms protein. Agree with diet orders. Follow up every Monday/Monday.
--- NOTE | 2021-03-26 14:24 | PM.IMPN ---
Progress Note: A&P Assessment and Plan (1) Community acquired pneumonia: Qualifiers: Laterality: right Lung location: unspecified part of lung Qualified Code(s): J18.9 - Pneumonia, unspecified organism Code(s): J18.9 - Pneumonia, unspecified organism Status: Acute (2) Septic shock: Code(s): A41.9 - Sepsis, unspecified organism; R65.21 - Severe sepsis with septic shock Status: Acute (3) Acute respiratory failure: Code(s): J96.00 - Acute respiratory failure, unspecified whether with hypoxia or hypercapnia Status: Acute (4) Elevated brain natriuretic peptide (BNP) level: Code(s): R79.89 - Other specified abnormal findings of blood chemistry Status: Acute (5) Hyponatremia: Code(s): E87.1 - Hypo-osmolality and hyponatremia Status: Acute (6) Atrial fibrillation: Code(s): I48.91 - Unspecified atrial fibrillation Status: Acute (7) COPD (chronic obstructive pulmonary disease): Code(s): J44.9 - Chronic obstructive pulmonary disease, unspecified Status: Acute (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 levophed started. continue to titrate for a MAP of 65. blodo cutlure growign strep pneumoniae, lielky source pneuonia. sputum cutlrue pending. covid neative. # right lobe pneumonia: contineuv ancomycin, ceftraixone, azithromycn. check resp culture, pneumonococccal ag, mycoplasma, legionelal. check fro COVID. pneumococcal pneumonia with bacteremia. covid negative. # afib with rvr: cadiologycosnulted. on and on baord. bsack to sinus rhythm now. # Acute respiratory failure hypoxic. and hypercarbic. s/p intubation and mechincal ventilation. recheck abg in 2 hrs. adjust vent setting as needed. # Elevated BNP: echo with systolic dysfunction. # hyponatremia: monitor. mild. # DVT proph: lovenox # Full code #c ardiomyopathy: ef 5%. cardiology on board. new onset. acei, bb per cards # Bacteremia pneumococcal 03/26/21 14:24 03/23 Patient remains on ventilator acute respiratory failure secondary to community-acquired pneumonia, being treated with ceftriaxone and doxycycline, patient is seen by tailings dam pumper and appreciate patient also had a episodes of atrial fibrillation rate is controlled seen by cardiology patient now remains in sinus rhythm, will continue to monitor. 03/24 Patient remains on ventilator acute respiratory failure secondary to community-acquired pneumonia, being treated with ceftriaxone and doxycycline, today patient was given trial of SBT however was not able to tolerate patient remains on ventilator patient is seen tailings dam pumper and appreciate. 03/25 patient remains on ventilator patient was given trial of SBT to wean the patient off however failed, seen by prep room supervisor not requiring any pressors and not in AFib, patient seen tailings dam pumper and Cardiology and appreciate. 03/26 patient again was given SBT and failed still remains on ventilator, patient with PAF most likely triggered by acute illness, remains in NSR, patient is seen by tailings dam pumper and Cardiology and appreciate. Subjective Date/time seen: 03/26/21 14:24 03/23 Patient remains on ventilator acute respiratory failure secondary to community-acquired pneumonia, being treated with ceftriaxone and doxycycline, patient is seen by tailings dam pumper yuridia
[2021-03-26] MEDS: PROPOFOL IV EMULSION 100 ML 8.67 MG IV CONT (15:42)
[2021-03-26] MEDS: NOREPINEPHRINE 8 MG/D5W 250 ML 8 MG/250 ML BAG 9.38 MG IV CONT (16:45)
[2021-03-26] MEDS: fentaNYL CITRATE INJ (*CRX) 100 MCG/2 ML VIAL 50 MCG IV PUSH ×2 (17:52→21:57)
[2021-03-26] MEDS: PROPOFOL IV EMULSION 100 ML 14.45 MG IV CONT (23:17)
[2021-03-27] VITALS (48 sets, daily range): BP systolic 86–140; BP diastolic 49–71; PULSE 46–69; RESP 12–29; TEMP 36.8–37.4; O2SAT 62–98
[2021-03-27] MEDS: IPRATROPIUM BR 0.02% INH SOLN 0.5 MG/2.5 ML VIAL INHALATION ×4 (01:36→19:50)
[2021-03-27] MEDS: ALBUTEROL SULFATE NEB 2.5 MG/0.5 ML INH INHALATION ×4 (01:36→19:51)
[2021-03-27] MEDS: dexmedeTOMIDine 400 MCG/100 ML 400 MCG/100 ML BAG 21.67 MCG IV CONT ×2 (02:45→09:58)
[2021-03-27 04:24] LABS: Alveolar/Arterial O2 Gradient 107.2 mmHg; Base Excess ABG 7.1 mEq/l (+/-2.0); Carboxyhemoglobin 0.5 % THb (0-2.0); Fractional Inspired Oxygen 30 %; Methemoglobin ABG 0.2 %THb (0-1.5); Oxygen Content ABG 17.4 %vol (16.0-22.0); Oxygen Saturation ABG 94.5 % (95.0-100.0); Oxyhemoglobin 92.1 % THb (90.0-100.0); PCO2 ABG 36.6 mmHg (35.0-45.0); PO2 ABG 63.7 mmHg (80.0-100.0); PO2 FiO2 Ratio Arterial Blood 2.12 %; Reduced Hemoglobin 7.2 %THb (0-5.0); Total Hemoglobin 13.4 g/dL (12.0-18.0)
[2021-03-27 04:26] LABS: Device VENTILATOR; Modified Allen's Test Pass; Site Drawn RIGHT RADIAL; pH ABG 7.531 (7.350-7.450)
[2021-03-27] MEDS: fentaNYL CITRATE INJ (*CRX) 100 MCG/2 ML VIAL 50 MCG IV PUSH ×3 (04:26→23:20)
[2021-03-27 04:27] LABS: Arterial Blood Gas PEEP 5 cmH2O; Arterial Blood Gas Vent Mode ASV
[2021-03-27 05:02] LABS: Basophils Percent Auto 0.1 % (0.2-1.2); Eosinophils Absolute Auto 0.1 K/mm3 (0-0.3); Eosinophils Percent Auto 1.3 % (0-4.4); Hematocrit 38.6 % (42.0-52.0); Hemoglobin 12.5 g/dL (14.0-18.0); Immature Granulocyte Absolute 0.07 K/mm3 (0.00-0.031); Immature Granulocyte Percent A 0.8 % (0-0.5); Lymphocytes Absolute Auto 1.53 K/mm3 (0.9-3.2); Lymphocytes Percent Auto 16.5 % (18.3-44.2); Mean Corpuscular HGB Conc 32.4 g/dl (32-36); Mean Corpuscular Hemoglobin 28.8 pg (26-34); Mean Corpuscular Volume 88.9 fl (80-100); Mean Platelet Volume 9.3 fl (7.4-10.4); Monocytes Absolute Auto 0.8 K/mm3 (0.1-0.6); Monocytes Percent Auto 8.8 % (2.6-8.5); Neutrophils Absolute Auto 6.7 K/mm3 (1.3-6.7); Neutrophils Percent Auto 72.5 % (45.5-73.1); Platelet Count Result 286 k/mm3 (150-375); Red Blood Count 4.34 M/mm3 (4.6-6.20); Red Cell Distribution Width 15.7 % (11.5-14.5); White Blood Count 9.3 K/mm3 (4.5-10.0)
[2021-03-27 05:12] LABS: Alanine Aminotransferase 48 U/L (4-50); Albumin Level 2.6 g/dL (3.5-5.1); Alkaline Phosphatase 70 U/L (38-126); Anion Gap 4 mmol/L (8-16); Aspartate Amino Transferase 33 U/L (17-59); Bilirubin,Total 0.4 mg/dL (0.2-1.3); Blood Urea Nitrogen 28 mg/dL (9-20); Calcium 8.5 mg/dL (8.4-10.2); Carbon Dioxide 32 mmol/L (22-30); Chloride 105 mmol/L (98-107); Estimated CRCL calculation 106 ml/min; Estimated Glomerular Filt Rate > 60; Glucose 127 mg/dL (75-110); Magnesium 2.1 mg/dL (1.6-2.3); Phosphorus 3.7 mg/dL (2.5-4.5); Potassium 3.9 mmol/L (3.4-5.0); Sodium 141 mmol/L (137-145)
[2021-03-27] MEDS: CENTRAL LINE FLUSH 10 ML IV PUSH ×3 (05:45→20:49)
[2021-03-27] MEDS: PROPOFOL IV EMULSION 100 ML 5.78 MG IV CONT (08:15)
--- NOTE | 2021-03-27 08:31 | WPDINTPN ---
Progress Note: A&P Assessment and Plan (1) Acute respiratory failure: Code(s): J96.00 - Acute respiratory failure, unspecified whether with hypoxia or hypercapnia Status: Acute Assessment and Plan: Acute Respiratory failure secondary to source pneumococcal community-acquired pneumonia and baseline COPD Continue full mechanical ventilation support to prevent hypoxemia/hypercarbia and end organ damage. ABG and chest x-ray reviewed and will repeat in am. Patient has failed daily weaning trial for last few days due to high RSBI and respiratory distress. Currently on ASV Will continue daily weaning trials I spoke to patient today and explained that he may need trach if he is not able to be extubated and he is agreeable and noded his head yes to tracheostomy and PEG if needed ABG reviewed change the ASV to 60% minute ventilation Continue Lasix as needed Continue Bronchodilators , Completed course of steroids Daily Sedation holiday On propofol, Precedex for now. (2) Community acquired pneumonia: Qualifiers: Laterality: right Lung location: unspecified part of lung Qualified Code(s): J18.9 - Pneumonia, unspecified organism Code(s): J18.9 - Pneumonia, unspecified organism Status: Acute Assessment and Plan: Pneumococcal community-acquired pneumonia Blood culture is growing Streptococcus pneumoniae Discontinued vancomycin. Continue Rocephin through tomorrow. Patient completed 5 days of atypical coverage with doxycycline Urine Legionella negative and pneumococcal antigen pending (3) Suspected COVID-19 virus infection: Code(s): Z20.822 - Contact with and (suspected) exposure to COVID-19 Status: Acute Assessment and Plan: COVID-19 suspected in ED and PCR was ordered although clinical picture not consistent PCR came back negative and isolation discontinued (4) Septic shock: Code(s): A41.9 - Sepsis, unspecified organism; R65.21 - Severe sepsis with septic shock Status: Acute Assessment and Plan: Patient was given 1 L saline bolus in ED due to concerns of heart failure as patient elevated BNP and lower extremity edema and after intubation and sedation patient blood pressure dropped Patient was started on Levophed, and later vasopressin was added Patient has received adequate volume resuscitation and I suspect cardiogenic component to the shock. ECHO echo confirmed EF of 20-25% and dilation of right ventricle and right ventricle systolic failure Now improved and off of vasopressors Off hydrocortisone now Patient also converted from AFib to sinus rhythm. Patient was not started on inotrope due to concern of recurrence atrial fibrillation (5) Systolic heart failure: Code(s): I50.20 - Unspecified systolic (congestive) heart failure Status: Acute Assessment and Plan: Summary 1. Complete two-dimensional, color flow and Doppler transthoracic echocardiogram is performed. 2. Left ventricular chamber dimension is mildly enlarged. 3. Left ventricular systolic function is severely reduced, estimated at 20-25%. 4. There is no increased left ventricular wall thickness. 5. Left ventricular septal wall motion is abnormal with septal motion related to bundle branch block. 6. The left ventricular diastolic function is grade I diastolic dysfunction. 7. Global hypokinesis of the left ventricle. 8. Right ventricular chamber dimension is severely enlarged. 9. Right ventricular systolic function is reduced. 10. Left atrial chamber dimension is mildly enlarged. 11. Right atrial chamber dimension is moderately enlarged. 12. There is moderate aortic valve sclerosis. 13. There is moderate mitral valve regurgitation. 14. There is mild to moderate tricuspid valve regurgitation. 15. Mild pulmonary hypertension, estimated pulmonary arterial systolic pressure is 39 mmHg. 16. There is mild pulmonic regurgitation. 17. The aortic root size at the
[2021-03-27] MEDS: ENOXAPARIN 100 MG/ML SYRINGE SUB-Q ×2 (10:02→20:47)
[2021-03-27] MEDS: ASPIRIN 325 MG TABLET PO (10:02)
[2021-03-27] MEDS: carvediloL 3.125 MG TABLET PO (10:03)
[2021-03-27] MEDS: lisinopriL 2.5 MG TABLET PO (10:03)
[2021-03-27] MEDS: FAMOTIDINE 20 MG/2 ML VIAL IV PUSH ×2 (10:03→20:47)
[2021-03-27] MEDS: LIDOCAINE 5% PATCH 1 PATCH TRANSDERM (10:22)
[2021-03-27] MEDS: dexmedeTOMIDine 400 MCG/100 ML 400 MCG/100 ML BAG 16.85 MCG IV CONT ×3 (13:01→23:10)
--- NOTE | 2021-03-27 14:31 | PM.IMPN ---
Progress Note: A&P Additional Plan # septic shock: likely from pneumonia. levophed started. continue to titrate for a MAP of 65. blodo cutlure growign strep pneumoniae, lielky source pneuonia. sputum cutlrue pending. covid neative. # right lobe pneumonia: contineuv ancomycin, ceftraixone, azithromycn. check resp culture, pneumonococccal ag, mycoplasma, legionelal. check fro COVID. pneumococcal pneumonia with bacteremia. covid negative. # afib with rvr: cadiologycosnulted. on and on baord. bsack to sinus rhythm now. # Acute respiratory failure hypoxic. and hypercarbic. s/p intubation and mechincal ventilation. recheck abg in 2 hrs. adjust vent setting as needed. # Elevated BNP: echo with systolic dysfunction. # hyponatremia: monitor. mild. # DVT proph: lovenox # Full code #c ardiomyopathy: ef 5%. cardiology on board. new onset. acei, bb per cards # Bacteremia pneumococcal 03/27/21 14:31 03/23 Patient remains on ventilator acute respiratory failure secondary to community-acquired pneumonia, being treated with ceftriaxone and doxycycline, patient is seen by green end man and appreciate patient also had a episodes of atrial fibrillation rate is controlled seen by cardiology patient now remains in sinus rhythm, will continue to monitor. 03/24 Patient remains on ventilator acute respiratory failure secondary to community-acquired pneumonia, being treated with ceftriaxone and doxycycline, today patient was given trial of SBT however was not able to tolerate patient remains on ventilator patient is seen green end man and appreciate. 03/25 patient remains on ventilator patient was given trial of SBT to wean the patient off however failed, seen by automobile body repair supervisor not requiring any pressors and not in AFib, patient seen green end man and Cardiology and appreciate. 03/26 patient again was given SBT and failed still remains on ventilator, patient with PAF most likely triggered by acute illness, remains in NSR, patient is seen by green end man and Cardiology and appreciate. 03/27 patient again today was given SBT and fair within 30 minutes patient was switch back the ventilator, I spoke with green end man suspect patient will need trach and patient is agreeable with that, patient remains in sinus, patient seen by Cardiology and green end man and appreciate. Subjective Date/time seen: 03/27/21 14:31 03/26 patient again was given SBT and failed still remains on ventilator, patient with PAF most likely triggered by acute illness, remains in NSR, patient is seen by green end man and Cardiology and appreciate. 03/27 patient again today was given SBT and fair within 30 minutes patient was switch back the ventilator, I spoke with green end man suspect patient will need trach and patient is agreeable with that, patient remains in sinus, patient seen by Cardiology and green end man and appreciate. Review of Systems Review of Systems: All systems reviewed & are unremarkable except as noted in HPI and below Exam Narrative: Exam Narrative: Patient is comfortable, NAD HEENT: ET tube in place LUNGS: Bilateral poor air entry with harsh breath sounds HEART: RR S1S2 ABD: BS+, Soft and nontender Lower extremities: no edema SKIN: nonjaundiced Neuro: Vent and sedated. Objective Data Vital Signs Vital Signs: Vital Signs - 24 hr 03/26/21 15:06 03/26/21 15:42 03/26/21 16:00 Temperature 98.4 F Pulse Rate 57 L 61 62 Respiratory Rate 14 16 16 Blood Pressure 88/52 L Pulse Oximetry 95 03/26/21 16:45 03/26/21 16:58 03/26/21 16:59 Temperature Pulse Rate 57 L 57 L 57 L Respiratory Rate 17 17 Blood Pressure 88/52 L Pulse Oximetry 03/26/21 17:01 03/26/21 17:02 03/26/21 17:07 Temperature Pulse Rate 48 L 46 L 55 L Respiratory Rate 14 Blood Pressure 124/71 Pulse Oximetry 96 03/26/21 17:13 03/26/21 17:43 03/26/21 17:54 Temperature Pulse Rate 59 L 59 L 63 Respiratory Rate 17 18 Blood Pressure 153/75 H Pulse Oximetry 03/26/21 17:55
--- NOTE | 2021-03-27 14:47 | PM.PNCARD ---
Progress Note: A&P Assessment and Plan (1) Atrial fibrillation: Code(s): I48.91 - Unspecified atrial fibrillation Status: Acute Assessment and Plan: New onset of parosyxmal AFib secondary to acute illness. Heart rate in aa fib was controlled on no rate-controlling medications suggesting some AV node disease. Currently back in NSR, with full-dose Lovenox. Will not resume amiodarone in an attempt pharmacologic cardioversion because of elevated liver enzymes, though they are improving. (2) Systolic heart failure: Code(s): I50.20 - Unspecified systolic (congestive) heart failure Status: Acute Assessment and Plan: New onset? systolic congestive heart failure. Has received a lot of IV fluids this admission but appears to be spontaneously diuresing, so far. BP acceptable to initiate low dose SHILO. Will titrate and introduce additional heart failure agents as blood pressure and heart rate tolerate. Will hold carvedilol for now in order to wean off norepinephrine (3) Cardiomyopathy: Code(s): I42.9 - Cardiomyopathy, unspecified Status: Acute Assessment and Plan: Four-chamber cardiac enlargement with EF of 20-25%, mod MR and RV hypokinesis. (4) Community acquired pneumonia: Qualifiers: Laterality: right Lung location: unspecified part of lung Qualified Code(s): J18.9 - Pneumonia, unspecified organism Code(s): J18.9 - Pneumonia, unspecified organism Status: Acute Assessment and Plan: Appears to be strep pneumonia. Continue antibiotics (5) Septic shock: Code(s): A41.9 - Sepsis, unspecified organism; R65.21 - Severe sepsis with septic shock Status: Acute Assessment and Plan: Secondary to strep pneumonia. Blood cultures positive for strep pneumonia. Wean Levophed to off. Continue antibiotics and supportive care. (6) Acute respiratory failure: Code(s): J96.00 - Acute respiratory failure, unspecified whether with hypoxia or hypercapnia Status: Acute Assessment and Plan: On the ventilator managed by ICU team (7) Hyponatremia: Code(s): E87.1 - Hypo-osmolality and hyponatremia Status: Acute Assessment and Plan: Hypokalemia and hyponatremia resolved. Subjective Date/time seen: 03/27/21 14:47 Interval history: Follow-up for paroxysmal atrial fibrillation, with new onset CHF and cardiomyopathy, EF 20-25%. The patient was admitted with pneumonia requiring intubation, and septic shock with strep bacteremia. 03/20/2021: Patient had brief episode of atrial fibrillation yesterday which resolved. Today he went back and atrial fibrillation this morning with a controlled rate, heart rate 90-100. His vasopressin was discontinued a while back and Levophed weaned off this morning. Remains on ventilator, FiO2 35%. Remains on sedation with fentanyl and Versed. Date of Service 03/21/2021: Pt converted to NSR yesterday evening. REmains intubated, FiO2 30%, getting tube feedings. REmains off pressors. Trying to wean sedation but pt gets very agitated. I's and O's: 3500 cc in/5900 out spontaneously yesterday. Date of service 03/22/2021: Patient remains in NSR. No ectopy noted on telemetry overnight. He remains intubated on 30% FiO2. Sedated with propofol and fentanyl. Off pressors. BP has remained stable. Date of service 03/23/2021: Patient unable to tolerate sedation being lifted for a breathing trial - becomes agitated, tachycardic. Still in NSR. BP stable. Date of service: 03/24/2021 patient clinically without much change. Still intubated on ventilator support. X-ray d
[2021-03-27] MEDS: PROPOFOL IV EMULSION 100 ML 11.56 MG IV CONT (20:41)
[2021-03-28] VITALS (42 sets, daily range): BP systolic 89–147; BP diastolic 56–74; PULSE 51–76; RESP 12–30; TEMP 36.3–37.3; O2SAT 95–99
[2021-03-28] MEDS: IPRATROPIUM BR 0.02% INH SOLN 0.5 MG/2.5 ML VIAL INHALATION ×4 (01:59→19:50)
[2021-03-28] MEDS: ALBUTEROL SULFATE NEB 2.5 MG/0.5 ML INH INHALATION ×4 (01:59→19:50)
[2021-03-28] MEDS: PROPOFOL IV EMULSION 100 ML 14.45 MG IV CONT (03:56)
[2021-03-28] MEDS: dexmedeTOMIDine 400 MCG/100 ML 400 MCG/100 ML BAG 16.85 MCG IV CONT ×2 (04:53→12:13)
[2021-03-28] MEDS: CENTRAL LINE FLUSH 10 ML IV PUSH ×3 (04:56→20:24)
[2021-03-28 05:34] LABS: Basophils Percent Auto 0.2 % (0.2-1.2); Eosinophils Absolute Auto 0.2 K/mm3 (0-0.3); Eosinophils Percent Auto 2.2 % (0-4.4); Hemoglobin 10.9 g/dL (14.0-18.0); Immature Granulocyte Absolute 0.06 K/mm3 (0.00-0.031); Immature Granulocyte Percent A 0.7 % (0-0.5); Lymphocytes Absolute Auto 1.37 K/mm3 (0.9-3.2); Lymphocytes Percent Auto 16.4 % (18.3-44.2); Mean Corpuscular HGB Conc 31.1 g/dl (32-36); Mean Corpuscular Hemoglobin 28.8 pg (26-34); Mean Corpuscular Volume 92.6 fl (80-100); Mean Platelet Volume 9.5 fl (7.4-10.4); Monocytes Absolute Auto 0.8 K/mm3 (0.1-0.6); Monocytes Percent Auto 9.4 % (2.6-8.5); Neutrophils Absolute Auto 5.9 K/mm3 (1.3-6.7); Neutrophils Percent Auto 71.1 % (45.5-73.1); Platelet Count Result 273 k/mm3 (150-375); Red Blood Count 3.78 M/mm3 (4.6-6.20); Red Cell Distribution Width 15.7 % (11.5-14.5); White Blood Count 8.3 K/mm3 (4.5-10.0)
[2021-03-28 05:44] LABS: Alanine Aminotransferase 51 U/L (4-50); Albumin Level 2.4 g/dL (3.5-5.1); Alkaline Phosphatase 65 U/L (38-126); Anion Gap 2 mmol/L (8-16); Aspartate Amino Transferase 50 U/L (17-59); Bilirubin,Total 0.3 mg/dL (0.2-1.3); Blood Urea Nitrogen 25 mg/dL (9-20); Calcium 8.5 mg/dL (8.4-10.2); Carbon Dioxide 32 mmol/L (22-30); Chloride 106 mmol/L (98-107); Estimated CRCL calculation 106 ml/min; Estimated Glomerular Filt Rate > 60; Glucose 102 mg/dL (75-110); Magnesium 2.1 mg/dL (1.6-2.3); Phosphorus 4.7 mg/dL (2.5-4.5); Potassium 3.9 mmol/L (3.4-5.0); Sodium 140 mmol/L (137-145)
[2021-03-28 05:49] LABS: Alveolar/Arterial O2 Gradient 104.7 mmHg; Carboxyhemoglobin 0.3 % THb (0-2.0); Device VENTILATOR; Fractional Inspired Oxygen 30 %; HCO3 ABG 29.4 mEq/l (22.0-26.0); Methemoglobin ABG 0.2 %THb (0-1.5); Modified Allen's Test Unable to perform; Oxygen Saturation ABG 94.4 % (95.0-100.0); Oxyhemoglobin 91.5 % THb (90.0-100.0); PCO2 ABG 37.9 mmHg (35.0-45.0); PO2 ABG 64.7 mmHg (80.0-100.0); PO2 FiO2 Ratio Arterial Blood 2.16 %; Site Drawn RIGHT RADIAL; Total Hemoglobin 11.6 g/dL (12.0-18.0); pH ABG 7.507 (7.350-7.450)
[2021-03-28 05:50] LABS: Arterial Blood Gas Minute Volume 5 LPM; Arterial Blood Gas PEEP 5 cmH2O; Arterial Blood Gas Vent Mode ASV
[2021-03-28] MEDS: fentaNYL CITRATE INJ (*CRX) 100 MCG/2 ML VIAL 50 MCG IV PUSH ×4 (06:17→20:24)
--- NOTE | 2021-03-28 08:16 | WPDINTPN ---
Progress Note: A&P Assessment and Plan (1) Acute respiratory failure: Code(s): J96.00 - Acute respiratory failure, unspecified whether with hypoxia or hypercapnia Status: Acute Assessment and Plan: Acute Respiratory failure secondary to source pneumococcal community-acquired pneumonia and baseline COPD Continue full mechanical ventilation support to prevent hypoxemia/hypercarbia and end organ damage. ABG and chest x-ray reviewed and will repeat in am. Patient has failed daily weaning trial for last few days due to high RSBI and respiratory distress. Currently on ASV. I have placed patient on pressure support ventilation. He gets adequate RSBI on 27/02. Will continue daily weaning trials I have spoken to patient and his daughter and explained that he may need trach if he is not able to be extubated and he is agreeable and noded his head yes to tracheostomy and PEG if needed. His daughter is also agreeable ABG reviewed continue ASV to 60% minute ventilation when not on pressure support Continue Lasix as needed Continue Bronchodilators , Completed course of steroids Daily Sedation holiday On propofol, Precedex for now. (2) Community acquired pneumonia: Qualifiers: Laterality: right Lung location: unspecified part of lung Qualified Code(s): J18.9 - Pneumonia, unspecified organism Code(s): J18.9 - Pneumonia, unspecified organism Status: Acute Assessment and Plan: Pneumococcal community-acquired pneumonia Blood culture is growing Streptococcus pneumoniae Discontinued vancomycin. Will completed course of Rocephin today. Patient completed 5 days of atypical coverage with doxycycline Urine Legionella negative and pneumococcal antigen pending WBC has normalized (3) Suspected COVID-19 virus infection: Code(s): Z20.822 - Contact with and (suspected) exposure to COVID-19 Status: Acute Assessment and Plan: COVID-19 suspected in ED and PCR was ordered although clinical picture not consistent PCR came back negative and isolation discontinued (4) Septic shock: Code(s): A41.9 - Sepsis, unspecified organism; R65.21 - Severe sepsis with septic shock Status: Acute Assessment and Plan: Patient was given 1 L saline bolus in ED due to concerns of heart failure as patient elevated BNP and lower extremity edema and after intubation and sedation patient blood pressure dropped Patient was started on Levophed, and later vasopressin was added Patient has received adequate volume resuscitation and I suspect cardiogenic component to the shock. ECHO echo confirmed EF of 20-25% and dilation of right ventricle and right ventricle systolic failure Now improved and off of vasopressors Off hydrocortisone now Patient also converted from AFib to sinus rhythm. Patient was not started on inotrope due to concern of recurrence atrial fibrillation (5) Systolic heart failure: Code(s): I50.20 - Unspecified systolic (congestive) heart failure Status: Acute Assessment and Plan: Summary 1. Complete two-dimensional, color flow and Doppler transthoracic echocardiogram is performed. 2. Left ventricular chamber dimension is mildly enlarged. 3. Left ventricular systolic function is severely reduced, estimated at 20-25%. 4. There is no increased left ventricular wall thickness. 5. Left ventricular septal wall motion is abnormal with septal motion related to bundle branch block. 6. The left ventricular diastolic function is grade I diastolic dysfunction. 7. Global hypokinesis of the left ventricle. 8. Right ventricular chamber dimension is severely enlarged. 9. Right ventricular systolic function is reduced. 10. Left atrial chamber dimension is mildly enlarged. 11. Right atrial chamber dimension is moderately enlarged. 12. There is moderate aortic valve sclerosis. 13. There is moderate mitral valve regurgitation. 14. There is mild to moderate tricuspid katalina
--- NOTE | 2021-03-28 08:49 | PC.NURSE ---
Patient becoming increasingly agitated and tachypneic. Wrote note saying he needed something to help him settle down and for pain. Propofol increased and respiratory notified of failed SBT.
[2021-03-28] MEDS: ASPIRIN 325 MG TABLET PO (09:24)
[2021-03-28] MEDS: FAMOTIDINE 20 MG/2 ML VIAL IV PUSH ×2 (09:24→20:23)
[2021-03-28] MEDS: ENOXAPARIN 100 MG/ML SYRINGE SUB-Q ×2 (09:24→20:23)
[2021-03-28] MEDS: PROPOFOL IV EMULSION 100 ML 17.33 MG IV CONT ×3 (11:37→20:53)
--- NOTE | 2021-03-28 11:47 | PM.PNCARD ---
Progress Note: A&P Assessment and Plan (1) Atrial fibrillation: Code(s): I48.91 - Unspecified atrial fibrillation Status: Acute Assessment and Plan: New onset of parosyxmal AFib secondary to acute illness. Heart rate in aa fib was controlled on no rate-controlling medications suggesting some AV node disease. Currently back in NSR, with full-dose Lovenox. Will not resume amiodarone in an attempt pharmacologic cardioversion because of elevated liver enzymes, though they are improving. (2) Systolic heart failure: Code(s): I50.20 - Unspecified systolic (congestive) heart failure Status: Acute Assessment and Plan: New onset? systolic congestive heart failure. Has received a lot of IV fluids this admission but appears to be spontaneously diuresing, so far. BP acceptable to initiate low dose SHILO. Will titrate and introduce additional heart failure agents as blood pressure and heart rate tolerate. Will hold carvedilol for now in order to wean off norepinephrine. Wean Levophed off (3) Cardiomyopathy: Code(s): I42.9 - Cardiomyopathy, unspecified Status: Acute Assessment and Plan: Four-chamber cardiac enlargement with EF of 20-25%, mod MR and RV hypokinesis. (4) Community acquired pneumonia: Qualifiers: Laterality: right Lung location: unspecified part of lung Qualified Code(s): J18.9 - Pneumonia, unspecified organism Code(s): J18.9 - Pneumonia, unspecified organism Status: Acute Assessment and Plan: Appears to be strep pneumonia. Continue antibiotics (5) Septic shock: Code(s): A41.9 - Sepsis, unspecified organism; R65.21 - Severe sepsis with septic shock Status: Acute Assessment and Plan: Secondary to strep pneumonia. Blood cultures positive for strep pneumonia. Wean Levophed to off. Continue antibiotics and supportive care. (6) Acute respiratory failure: Code(s): J96.00 - Acute respiratory failure, unspecified whether with hypoxia or hypercapnia Status: Acute Assessment and Plan: On the ventilator managed by ICU team (7) Hyponatremia: Code(s): E87.1 - Hypo-osmolality and hyponatremia Status: Acute Assessment and Plan: Hypokalemia and hyponatremia resolved. Subjective Date/time seen: 03/28/21 11:47 Interval history: Follow-up for paroxysmal atrial fibrillation, with new onset CHF and cardiomyopathy, EF 20-25%. The patient was admitted with pneumonia requiring intubation, and septic shock with strep bacteremia. 03/20/2021: Patient had brief episode of atrial fibrillation yesterday which resolved. Today he went back and atrial fibrillation this morning with a controlled rate, heart rate 90-100. His vasopressin was discontinued a while back and Levophed weaned off this morning. Remains on ventilator, FiO2 35%. Remains on sedation with fentanyl and Versed. Date of Service 03/21/2021: Pt converted to NSR yesterday evening. REmains intubated, FiO2 30%, getting tube feedings. REmains off pressors. Trying to wean sedation but pt gets very agitated. I's and O's: 3500 cc in/5900 out spontaneously yesterday. Date of service 03/22/2021: Patient remains in NSR. No ectopy noted on telemetry overnight. He remains intubated on 30% FiO2. Sedated with propofol and fentanyl. Off pressors. BP has remained stable. Date of service 03/23/2021: Patient unable to tolerate sedation being lifted for a breathing trial - becomes agitated, tachycardic. Still in NSR. BP stable. Date of service: 03/24/2021 patient clinically without much change. Still intubated on ventilat
--- NOTE | 2021-03-28 13:47 | PM.IMPN ---
Progress Note: A&P Assessment and Plan (1) Community acquired pneumonia: Qualifiers: Laterality: right Lung location: unspecified part of lung Qualified Code(s): J18.9 - Pneumonia, unspecified organism Code(s): J18.9 - Pneumonia, unspecified organism Status: Acute (2) Septic shock: Code(s): A41.9 - Sepsis, unspecified organism; R65.21 - Severe sepsis with septic shock Status: Acute (3) Acute respiratory failure: Code(s): J96.00 - Acute respiratory failure, unspecified whether with hypoxia or hypercapnia Status: Acute (4) Elevated brain natriuretic peptide (BNP) level: Code(s): R79.89 - Other specified abnormal findings of blood chemistry Status: Acute (5) Hyponatremia: Code(s): E87.1 - Hypo-osmolality and hyponatremia Status: Acute (6) Atrial fibrillation: Code(s): I48.91 - Unspecified atrial fibrillation Status: Acute (7) COPD (chronic obstructive pulmonary disease): Code(s): J44.9 - Chronic obstructive pulmonary disease, unspecified Status: Acute (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 levophed started. continue to titrate for a MAP of 65. blodo cutlure growign strep pneumoniae, lielky source pneuonia. sputum cutlrue pending. covid neative. # right lobe pneumonia: contineuv ancomycin, ceftraixone, azithromycn. check resp culture, pneumonococccal ag, mycoplasma, legionelal. check fro COVID. pneumococcal pneumonia with bacteremia. covid negative. # afib with rvr: cadiologycosnulted. on and on baord. bsack to sinus rhythm now. # Acute respiratory failure hypoxic. and hypercarbic. s/p intubation and mechincal ventilation. recheck abg in 2 hrs. adjust vent setting as needed. # Elevated BNP: echo with systolic dysfunction. # hyponatremia: monitor. mild. # DVT proph: lovenox # Full code #c ardiomyopathy: ef 5%. cardiology on board. new onset. josr mclaughlin per cards 03/28/21 13:47 03/23 Patient remains on ventilator acute respiratory failure secondary to community-acquired pneumonia, being treated with ceftriaxone and doxycycline, patient is seen by fitting room maintenance mechanic and appreciate patient also had a episodes of atrial fibrillation rate is controlled seen by cardiology patient now remains in sinus rhythm, will continue to monitor. 03/24 Patient remains on ventilator acute respiratory failure secondary to community-acquired pneumonia, being treated with ceftriaxone and doxycycline, today patient was given trial of SBT however was not able to tolerate patient remains on ventilator patient is seen fitting room maintenance mechanic and appreciate. 03/25 patient remains on ventilator patient was given trial of SBT to wean the patient off however failed, seen by boat hand not requiring any pressors and not in AFib, patient seen fitting room maintenance mechanic and Cardiology and appreciate. 03/26 patient again was given SBT and failed still remains on ventilator, patient with PAF most likely triggered by acute illness, remains in NSR, patient is seen by fitting room maintenance mechanic and Cardiology and appreciate. 03/27 patient again today was given SBT and fair within 30 minutes patient was switch back the ventilator, I spoke with fitting room maintenance mechanic suspect patient will need trach and patient is agreeable with that, patient remains in sinus, patient seen by Cardiology and
[2021-03-28] MEDS: dexmedeTOMIDine 400 MCG/100 ML 400 MCG/100 ML BAG 14.45 MCG IV CONT ×2 (16:29→23:57)
[2021-03-29] VITALS (41 sets, daily range): BP systolic 89–131; BP diastolic 50–88; PULSE 55–99; RESP 12–39; TEMP 35.9–36.7; O2SAT 90–100
[2021-03-29] MEDS: ALBUTEROL SULFATE NEB 2.5 MG/0.5 ML INH INHALATION ×4 (01:52→20:29)
[2021-03-29] MEDS: IPRATROPIUM BR 0.02% INH SOLN 0.5 MG/2.5 ML VIAL INHALATION ×4 (01:52→20:29)
[2021-03-29] MEDS: fentaNYL CITRATE INJ (*CRX) 100 MCG/2 ML VIAL 50 MCG IV PUSH ×4 (02:17→23:47)
[2021-03-29] MEDS: PROPOFOL IV EMULSION 100 ML 17.33 MG IV CONT (03:28)
[2021-03-29 04:47] LABS: Hematocrit 34.3 % (42.0-52.0); Hemoglobin 10.7 g/dL (14.0-18.0); Mean Corpuscular HGB Conc 31.2 g/dl (32-36); Mean Corpuscular Hemoglobin 29.1 pg (26-34); Mean Corpuscular Volume 93.2 fl (80-100); Mean Platelet Volume 9.5 fl (7.4-10.4); Platelet Count Result 265 k/mm3 (150-375); Red Blood Count 3.68 M/mm3 (4.6-6.20); Red Cell Distribution Width 15.6 % (11.5-14.5); White Blood Count 9.3 K/mm3 (4.5-10.0)
[2021-03-29 04:49] LABS: Alveolar/Arterial O2 Gradient 84.9 mmHg; Base Excess ABG 6.1 mEq/l (+/-2.0); Carboxyhemoglobin 0.5 % THb (0-2.0); Device VENTILATOR; Fractional Inspired Oxygen 30 %; Methemoglobin ABG 0.2 %THb (0-1.5); Modified Allen's Test Unable to perform; Oxygen Content ABG 15.5 %vol (16.0-22.0); Oxygen Saturation ABG 95.5 % (95.0-100.0); PCO2 ABG 45.9 mmHg (35.0-45.0); PO2 ABG 75.1 mmHg (80.0-100.0); Reduced Hemoglobin 5.3 %THb (0-5.0); Site Drawn RIGHT RADIAL; Total Hemoglobin 11.7 g/dL (12.0-18.0); pH ABG 7.447 (7.350-7.450)
[2021-03-29 04:50] LABS: Arterial Blood Gas Minute Volume 5 LPM; Arterial Blood Gas PEEP 5 cmH2O; Arterial Blood Gas Vent Mode ASV
[2021-03-29 05:01] LABS: Alanine Aminotransferase 68 U/L (4-50); Albumin Level 2.4 g/dL (3.5-5.1); Alkaline Phosphatase 77 U/L (38-126); Anion Gap 1 mmol/L (8-16); Aspartate Amino Transferase 60 U/L (17-59); Bilirubin,Total 0.3 mg/dL (0.2-1.3); Blood Urea Nitrogen 22 mg/dL (9-20); Calcium 8.4 mg/dL (8.4-10.2); Carbon Dioxide 32 mmol/L (22-30); Chloride 106 mmol/L (98-107); Estimated CRCL calculation 106 ml/min; Estimated Glomerular Filt Rate > 60; Glucose 98 mg/dL (75-110); Magnesium 2.1 mg/dL (1.6-2.3); Potassium 4.2 mmol/L (3.4-5.0); Sodium 139 mmol/L (137-145)
[2021-03-29] MEDS: CENTRAL LINE FLUSH 10 ML IV PUSH ×3 (06:23→21:23)
[2021-03-29] MEDS: dexmedeTOMIDine 400 MCG/100 ML 400 MCG/100 ML BAG 14.45 MCG IV CONT (07:50)
[2021-03-29] MEDS: ASPIRIN 325 MG TABLET PO (07:52)
[2021-03-29] MEDS: FAMOTIDINE 20 MG/2 ML VIAL IV PUSH ×2 (07:52→21:23)
[2021-03-29] MEDS: ENOXAPARIN 100 MG/ML SYRINGE SUB-Q ×2 (07:52→21:23)
[2021-03-29] MEDS: LIDOCAINE 5% PATCH 1 PATCH TRANSDERM (07:53)
[2021-03-29] MEDS: lisinopriL 2.5 MG TABLET PO (07:53)
--- NOTE | 2021-03-29 08:03 | WPDINTPN ---
Progress Note: A&P Assessment and Plan (1) Acute respiratory failure: Code(s): J96.00 - Acute respiratory failure, unspecified whether with hypoxia or hypercapnia Status: Acute Assessment and Plan: Acute Respiratory failure secondary to source pneumococcal community-acquired pneumonia and baseline COPD Continue full mechanical ventilation support to prevent hypoxemia/hypercarbia and end organ damage. ABG and chest x-ray reviewed and will repeat in am. Patient has failed daily weaning trial for last few days due to high RSBI and respiratory distress. Currently on ASV. I will again try today pressure support ventilation. He gets adequate RSBI only on 27/02. I will consult ENT and GI if patient does not show any improvement today I have spoken to patient and his daughter and explained that he may need trach if he is not able to be extubated and he is agreeable and noded his head yes to tracheostomy and PEG if needed. His daughter is also agreeable ABG reviewed continue ASV to 60% minute ventilation when not on pressure support Continue Lasix as needed Continue Bronchodilators Completed course of steroids Daily Sedation holiday On propofol, Precedex for now. (2) Community acquired pneumonia: Qualifiers: Laterality: right Lung location: unspecified part of lung Qualified Code(s): J18.9 - Pneumonia, unspecified organism Code(s): J18.9 - Pneumonia, unspecified organism Status: Acute Assessment and Plan: Pneumococcal community-acquired pneumonia Blood culture is growing Streptococcus pneumoniae Discontinued vancomycin. Will completed course of Rocephin today. Patient completed 5 days of atypical coverage with doxycycline Urine Legionella negative and pneumococcal antigen pending WBC has normalized (3) Suspected COVID-19 virus infection: Code(s): Z20.822 - Contact with and (suspected) exposure to COVID-19 Status: Acute Assessment and Plan: COVID-19 suspected in ED and PCR was ordered although clinical picture not consistent PCR came back negative and isolation discontinued (4) Septic shock: Code(s): A41.9 - Sepsis, unspecified organism; R65.21 - Severe sepsis with septic shock Status: Acute Assessment and Plan: Patient was given 1 L saline bolus in ED due to concerns of heart failure as patient elevated BNP and lower extremity edema and after intubation and sedation patient blood pressure dropped Patient was started on Levophed, and later vasopressin was added Patient has received adequate volume resuscitation and I suspect cardiogenic component to the shock. ECHO echo confirmed EF of 20-25% and dilation of right ventricle and right ventricle systolic failure Now improved and off of vasopressors Off hydrocortisone now Patient also converted from AFib to sinus rhythm. Patient was not started on inotrope due to concern of recurrence atrial fibrillation (5) Systolic heart failure: Code(s): I50.20 - Unspecified systolic (congestive) heart failure Status: Acute Assessment and Plan: Summary 1. Complete two-dimensional, color flow and Doppler transthoracic echocardiogram is performed. 2. Left ventricular chamber dimension is mildly enlarged. 3. Left ventricular systolic function is severely reduced, estimated at 20-25%. 4. There is no increased left ventricular wall thickness. 5. Left ventricular septal wall motion is abnormal with septal motion related to bundle branch block. 6. The left ventricular diastolic function is grade I diastolic dysfunction. 7. Global hypokinesis of the left ventricle. 8. Right ventricular chamber dimension is severely enlarged. 9. Right ventricular systolic function is reduced. 10. Left atrial chamber dimension is mildly enlarged. 11. Right atrial chamber dimension is moderately enlarged. 12. There is moderate aortic valve sclerosis. 13. There is moderate mitral valve regurgitation. 14.
[2021-03-29] MEDS: PROPOFOL IV EMULSION 100 ML 8.67 MG IV CONT ×2 (09:11→19:19)
--- NOTE | 2021-03-29 10:23 | PCDIET ---
ICU Rounding Note: Patient has been tolerating Jevity 1.2 at 50mL/hr with 30mL water flush every 4 hours and Pro-Stat flush BID. Tube feedings currently held for breathing trial. MD consulting specialists for tracheostomy and PEG. Last recorded weight is 100.2kg which is increased from last review. Bowel Motility: BM x 1 on 03/25/21. Miralax and Dulcolax ordered prn. Labs Reviewed: Hgb (10.7), Hct (34.3), BUN (22), Alb (2.4) Meds Noted: Propofol (rate of 8.67mL/hr provides 228kcal per day), Lisinopril, Versed, Albuterol, Coreg, Precedex, Pepcid, Fentanyl, Atrovent, Levophed Additional Notes: No documented skin breakdown. Following daily in ICU rounds. Assessing/reassessing every Monday/Monday.
--- NOTE | 2021-03-29 10:35 | PM.PNCARD ---
Progress Note: A&P Assessment and Plan (1) Atrial fibrillation: Code(s): I48.91 - Unspecified atrial fibrillation Status: Acute Assessment and Plan: New onset of parosyxmal AFib secondary to acute illness. Heart rate in aa fib was controlled on no rate-controlling medications suggesting some AV node disease. Currently back in NSR, with full-dose Lovenox. Will not resume amiodarone in an attempt pharmacologic cardioversion because of elevated liver enzymes, though they are improving. (2) Systolic heart failure: Code(s): I50.20 - Unspecified systolic (congestive) heart failure Status: Acute Assessment and Plan: New onset? systolic congestive heart failure. Has received a lot of IV fluids this admission but appears to be spontaneously diuresing, so far. BP acceptable to initiate low dose SHILO. Will titrate and introduce additional heart failure agents as blood pressure and heart rate tolerate. Off norepi today. Will resume carvedilol in the next couple of days if BP allows. (3) Cardiomyopathy: Code(s): I42.9 - Cardiomyopathy, unspecified Status: Acute Assessment and Plan: Four-chamber cardiac enlargement with EF of 20-25%, mod MR and RV hypokinesis. (4) Community acquired pneumonia: Qualifiers: Laterality: right Lung location: unspecified part of lung Qualified Code(s): J18.9 - Pneumonia, unspecified organism Code(s): J18.9 - Pneumonia, unspecified organism Status: Acute Assessment and Plan: Appears to be strep pneumonia. Continue antibiotics (5) Septic shock: Code(s): A41.9 - Sepsis, unspecified organism; R65.21 - Severe sepsis with septic shock Status: Acute Assessment and Plan: Secondary to strep pneumonia. Blood cultures positive for strep pneumonia. Wean Levophed to off. Continue antibiotics and supportive care. (6) Acute respiratory failure: Code(s): J96.00 - Acute respiratory failure, unspecified whether with hypoxia or hypercapnia Status: Acute Assessment and Plan: On the ventilator managed by ICU team (7) Hyponatremia: Code(s): E87.1 - Hypo-osmolality and hyponatremia Status: Acute Assessment and Plan: Hypokalemia and hyponatremia resolved. Additional Plan Subjective Date/time seen: 03/29/21 10:35 Interval history: Follow-up for paroxysmal atrial fibrillation, with new onset CHF and cardiomyopathy, EF 20-25%. The patient was admitted with pneumonia requiring intubation, and septic shock with strep bacteremia. 03/20/2021: Patient had brief episode of atrial fibrillation yesterday which resolved. Today he went back and atrial fibrillation this morning with a controlled rate, heart rate 90-100. His vasopressin was discontinued a while back and Levophed weaned off this morning. Remains on ventilator, FiO2 35%. Remains on sedation with fentanyl and Versed. Date of Service 03/21/2021: Pt converted to NSR yesterday evening. REmains intubated, FiO2 30%, getting tube feedings. REmains off pressors. Trying to wean sedation but pt gets very agitated. I's and O's: 3500 cc in/5900 out spontaneously yesterday. Date of service 03/22/2021: Patient remains in NSR. No ectopy noted on telemetry overnight. He remains intubated on 30% FiO2. Sedated with propofol and fentanyl. Off pressors. BP has remained stable. Date of service 03/23/2021: Patient unable to tolerate sedation being lifted for a breathing trial - becomes agitated, tachycardic. Still in NSR. BP stable. Date of service: 03/24/2021 patient clinically without much change. Still intubated on ventilator support. X-ray does lo
[2021-03-29] MEDS: dexmedeTOMIDine 400 MCG/100 ML 400 MCG/100 ML BAG 19.26 MCG IV CONT (12:05)
--- NOTE | 2021-03-29 12:40 | PM.IMPN ---
Progress Note: A&P Assessment and Plan (1) Community acquired pneumonia: Qualifiers: Laterality: right Lung location: unspecified part of lung Qualified Code(s): J18.9 - Pneumonia, unspecified organism Code(s): J18.9 - Pneumonia, unspecified organism Status: Acute (2) Septic shock: Code(s): A41.9 - Sepsis, unspecified organism; R65.21 - Severe sepsis with septic shock Status: Acute (3) Acute respiratory failure: Code(s): J96.00 - Acute respiratory failure, unspecified whether with hypoxia or hypercapnia Status: Acute (4) Elevated brain natriuretic peptide (BNP) level: Code(s): R79.89 - Other specified abnormal findings of blood chemistry Status: Acute (5) Hyponatremia: Code(s): E87.1 - Hypo-osmolality and hyponatremia Status: Acute (6) Atrial fibrillation: Code(s): I48.91 - Unspecified atrial fibrillation Status: Acute (7) COPD (chronic obstructive pulmonary disease): Code(s): J44.9 - Chronic obstructive pulmonary disease, unspecified Status: Acute (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 levophed started. continue to titrate for a MAP of 65. blodo cutlure growign strep pneumoniae, lielky source pneuonia. sputum cutlrue pending. covid neative. # right lobe pneumonia: contineuv ancomycin, ceftraixone, azithromycn. check resp culture, pneumonococccal ag, mycoplasma, legionelal. check fro COVID. pneumococcal pneumonia with bacteremia. covid negative. # afib with rvr: cadiologycosnulted. on and on baord. bsack to sinus rhythm now. # Acute respiratory failure hypoxic. and hypercarbic. s/p intubation and mechincal ventilation. recheck abg in 2 hrs. adjust vent setting as needed. # Elevated BNP: echo with systolic dysfunction. # hyponatremia: monitor. mild. # DVT proph: lovenox # Full code #c ardiomyopathy: ef 5%. cardiology on board. new onset. josr mclaughlin per cards 03/29/21 12:40 03/23 Patient remains on ventilator acute respiratory failure secondary to community-acquired pneumonia, being treated with ceftriaxone and doxycycline, patient is seen by sweeper driver and appreciate patient also had a episodes of atrial fibrillation rate is controlled seen by cardiology patient now remains in sinus rhythm, will continue to monitor. 03/24 Patient remains on ventilator acute respiratory failure secondary to community-acquired pneumonia, being treated with ceftriaxone and doxycycline, today patient was given trial of SBT however was not able to tolerate patient remains on ventilator patient is seen sweeper driver and appreciate. 03/25 patient remains on ventilator patient was given trial of SBT to wean the patient off however failed, seen by mechanical commissioning engineer not requiring any pressors and not in AFib, patient seen sweeper driver and Cardiology and appreciate. 03/26 patient again was given SBT and failed still remains on ventilator, patient with PAF most likely triggered by acute illness, remains in NSR, patient is seen by sweeper driver and Cardiology and appreciate. 03/27 patient again today was given SBT and fair within 30 minutes patient was switch back the ventilator, I spoke with sweeper driver suspect patient will need trach and patient is agreeable with that, patient remains in sinus, patient seen by Cardiology and
--- NOTE | 2021-03-29 13:55 | WPDCN ---
Assessment and Plan Additional Plan planned tracheotomy HPI Data of Consult Date/Time: 03/29/21 13:55 Requesting Physician: Rashad Luna MD Primary Care Provider: TENDERIZER TENDER PHYSICIAN Consult Narrative Narrative: Juvenal Link is a 60 year old male prolonged intubation the this having a tracheotomy Review of Systems Review of Systems: All systems reviewed & are unremarkable except as noted in HPI and below PMFSH Past Medical History Medical History COPD (chronic obstructive pulmonary disease) Fentanyl use disorder, mild, abuse Social History Social History Alcohol intake: current Drinks per week: 5 Substance use: never Gender identity (if verbalized by the patient): Male Sexual Orientation (if Verbalized by the Patient): Straight or Heterosexual Spiritual care concerns: No Meds Home Medications and Allergies Home Medications Medication Instructions Recorded Confirmed Type albuterol sulfate INHALATION 03/18/21 History fluticasone propion-salmeterol INHALATION 03/18/21 03/18/21 History [Wixela Inhub] prednisone 03/18/21 History Allergies Allergy/AdvReac Type Severity Reaction Status Date / Time codeine Allergy Dyspnea / Verified 03/19/21 06:44 SOB Vital Signs Vital Signs - 24 hr 03/28/21 14:00 03/28/21 16:00 03/28/21 17:51 Temperature 36.6 C Pulse Rate 69 52 L 55 L Respiratory Rate 20 20 Blood Pressure 101/57 L 102/62 Pulse Oximetry 97 97 96 03/28/21 17:56 03/28/21 18:00 03/28/21 19:51 Temperature Pulse Rate 55 L 54 L 63 Respiratory Rate 20 14 Blood Pressure 97/58 L Pulse Oximetry 96 03/28/21 20:00 03/28/21 20:11 03/28/21 20:12 Temperature 36.3 C L Pulse Rate 66 67 63 Respiratory Rate 19 12 Blood Pressure 98/64 L Pulse Oximetry 99 99 03/28/21 20:53 03/28/21 21:13 03/28/21 22:00 Temperature Pulse Rate 69 67 62 Respiratory Rate 18 14 14 Blood Pressure 97/56 L Pulse Oximetry 99 03/28/21 23:25 03/28/21 23:57 03/29/21 00:00 Temperature 36.3 C L Pulse Rate 71 71 69 Respiratory Rate 16 16 12 Blood Pressure 97/55 L Pulse Oximetry 100 03/29/21 00:48 03/29/21 01:52 03/29/21 01:53 Temperature Pulse Rate 69 72 70 Respiratory Rate 12 18 Blood Pressure Pulse Oximetry 98 03/29/21 01:58 03/29/21 02:00 03/29/21 02:40 Temperature Pulse Rate 71 72 64 Respiratory Rate 16 18 18 Blood Pressure 99/50 L Pulse Oximetry 98 03/29/21 03:28 03/29/21 04:00 03/29/21 04:41 Temperature 36.7 C Pulse Rate 64 64 68 Respiratory Rate 18 18 Blood Pressure 93/55 L Pulse Oximetry 98 98 03/29/21 06:00 03/29/21 07:01 03/29/21 07:02 Temperature Pulse Rate 74 61 61 Respiratory Rate 12 14 14 Blood Pressure 94/62 L Pulse Oximetry 100 03/29/21 07:50 03/29/21 07:55 03/29/21 08:00 Temperature 36.4 C Pulse Rate 78 74 75 Respiratory Rate 28 H 13 12 Blood Pressure 106/57 L Pulse Oximetry 99 03/29/21 09:00 03/29/21 09:11 03/29/21 10:00 Temperature Pulse Rate 97 97 80 Respiratory Rate 39 H 25 H 30 H Blood Pressure 105/56 L Pulse Oximetry 99 03/29/21 10:30 03/29/21 12:00 03/29/21 12:05 Temperature 35.9 C L Pulse Rate 79 60 58 L Respiratory Rate 23 H 18 20 Blood Pressure 89/56 L Pulse Oximetry 100 03/29/21 12:06 Temperature Pulse Rate 55 L Respiratory Rate 20 Blood Pressure Pulse Oximetry Exam Narrative: Exam Narrative: endotracheal tube in place Results Labs CBC & Chem 7: 03/29/21 04:36 03/29/21 04:36 Labs: Short CBC 03/29/21 Range/Units 04:36 WBC 9.3 (4.5-10.0) K/mm3 Hgb 10.7 L (14.0-18.0) g/dL Hct 34.3 L (42.0-52.0) % Plt Count 265 (150-375) k/mm3 BMP 03/29/21 04:36 Sodium 139 Potassium 4.2 Chloride 106 Carbon Dioxide 32 H BUN 22 H Cr
--- NOTE | 2021-03-29 15:16 | WPDGICN ---
Assessment and Plan Assessment and plan (1) Streptococcus pneumoniae pneumonia: Code(s): J13 - Pneumonia due to Streptococcus pneumoniae Status: Acute Assessment and Plan: He has improved on antibiotics, which have been discontinued He is intubated. (2) COPD (chronic obstructive pulmonary disease): Code(s): J44.9 - Chronic obstructive pulmonary disease, unspecified Status: Acute Assessment and Plan: attempts to wean him have not been successful, probably in part due to his body habitus. For this reason we will place gastrostomy feeding tube tomorrow (3) Atrial fibrillation: Code(s): I48.91 - Unspecified atrial fibrillation Status: Acute Assessment and Plan: he has had some episodes of atrial fibrillation. He is currently on Lovenox every 12 hours GI Consult Note Consult date/time: 03/29/21 15:16 HPI: Juvenal Link is a 60 year old male Who was admitted 11 days ago with community-acquired pneumonia. He has been in respiratory failure, intubated, and on tube feedings. Attempts to wean him have not been successful. He is going to need a tracheostomy and I have been asked to place a G-tube for feedings. He is awake an understands What we intend to do. Review of Systems Review of Systems: All systems reviewed & are unremarkable except as noted in HPI and below PMFSH Past Medical History Medical History COPD (chronic obstructive pulmonary disease) Fentanyl use disorder, mild, abuse Social History Social History Alcohol intake: current Drinks per week: 5 Substance use: never Gender identity (if verbalized by the patient): Male Sexual Orientation (if Verbalized by the Patient): Straight or Heterosexual Spiritual care concerns: No Meds Home Medications and Allergies Home Medications Medication Instructions Recorded Confirmed Type albuterol sulfate INHALATION 03/18/21 History fluticasone propion-salmeterol INHALATION 03/18/21 03/18/21 History [Wixela Inhub] prednisone 03/18/21 History Allergies Allergy/AdvReac Type Severity Reaction Status Date / Time codeine Allergy Dyspnea / Verified 03/19/21 06:44 SOB Vital Signs Vital Signs - 24 hr 03/28/21 16:00 03/28/21 17:51 03/28/21 17:56 Temperature 36.6 C Pulse Rate 52 L 55 L 55 L Respiratory Rate 20 Blood Pressure 102/62 Pulse Oximetry 97 96 03/28/21 18:00 03/28/21 19:51 03/28/21 20:00 Temperature 36.3 C L Pulse Rate 54 L 63 66 Respiratory Rate 20 14 19 Blood Pressure 97/58 L 98/64 L Pulse Oximetry 96 99 03/28/21 20:11 03/28/21 20:12 03/28/21 20:53 Temperature Pulse Rate 67 63 69 Respiratory Rate 12 18 Blood Pressure Pulse Oximetry 99 03/28/21 21:13 03/28/21 22:00 03/28/21 23:25 Temperature Pulse Rate 67 62 71 Respiratory Rate 14 14 16 Blood Pressure 97/56 L Pulse Oximetry 99 03/28/21 23:57 03/29/21 00:00 03/29/21 00:48 Temperature 36.3 C L Pulse Rate 71 69 69 Respiratory Rate 16 12 12 Blood Pressure 97/55 L Pulse Oximetry 100 03/29/21 01:52 03/29/21 01:53 03/29/21 01:58 Temperature Pulse Rate 72 70 71 Respiratory Rate 18 16 Blood Pressure Pulse Oximetry 98 03/29/21 02:00 03/29/21 02:40 03/29/21 03:28 Temperature Pulse Rate 72 64 64 Respiratory Rate 18 18 18 Blood Pressure 99/50 L Pulse Oximetry 98 03/29/21 04:00 03/29/21 04:41 03/29/21 06:00 Temperature 36.7 C Pulse Rate 64 68 74 Respiratory Rate 18 12 Blood Pressure 93/55 L 94/62 L Pulse Oximetry 98 98 100 03/29/21 07:01 03/29/21 07:02 03/29/21 07:50 Temperature Pulse Rate 61 61 78 Respiratory Rate 14 14 28 H Blood Pressure Pulse Oximetry 03/29/21 07:55 03/29/21 08:00 03/29/21 09:00 Temperature 36.4 C Pulse Rate 74 75 97 Respiratory Rate 13 12 39 H Blood Pressure 106
[2021-03-29] MEDS: dexmedeTOMIDine 400 MCG/100 ML 400 MCG/100 ML BAG 16.85 MCG IV CONT ×2 (17:24→23:51)
--- NOTE | 2021-03-29 17:56 | WPDANESEPP ---
Anes - Eval Pre Procedure Procedure: Operation Date: 03/30/21 10:45 Proposed Procedures p Tracheostomy - Ankit Menjivar MD Operation Date: 03/30/21 12:00 Proposed Procedures p Percutaneous Endoscopic Gastrostomy Placement - Christofer Stinson MD Date/Time: 03/29/21 17:56 Pre Op Diagnosis: Pneumonia, Respiratory Failure Patient Data Age: 60 Gender: M Height: 6 ft Weight: 100.2 kg Last Vital Signs Temp 97.5 F L 03/29/21 16:00 Pulse 55 L 03/29/21 17:25 Resp 17 03/29/21 17:25 BP 95/55 L 03/29/21 16:00 Pulse Ox 99 03/29/21 16:00 Allergies Allergy/AdvReac Type Severity Reaction Status Date / Time codeine Allergy Dyspnea / Verified 03/19/21 06:44 SOB Home Medications Medication Instructions Recorded Confirmed Type albuterol sulfate INHALATION 03/18/21 History fluticasone propion-salmeterol INHALATION 03/18/21 03/18/21 History [Wixela Inhub] prednisone 03/18/21 History Laboratory Tests 03/29/21 03/29/21 03/29/21 04:16 04:36 04:36 WBC 9.3 K/mm3 K/mm3 (4.5-10.0) RBC 3.68 M/mm3 L M/mm3 (4.6-6.20) Hgb 10.7 g/dL L g/dL (14.0-18.0) Hct 34.3 % L % (42.0-52.0) MCV 93.2 fl fl (80-100) MCH 29.1 pg pg (26-34) MCHC 31.2 g/dl L g/dl (32-36) RDW 15.6 % H % (11.5-14.5) Plt Count 265 k/mm3 k/mm3 (150-375) MPV 9.5 fl fl (7.4-10.4) Puncture Site Right radial ABG pH 7.447 (7.350-7.450) ABG pCO2 45.9 mmHg H mmHg (35.0-45.0) ABG pO2 75.1 mmHg L mmHg (80.0-100.0) ABG PO2/FiO2 Ratio 2.50 % % ABG HCO3 31.0 mEq/l H mEq/l (22.0-26.0) ABG O2 Saturation 95.5 % % (95.0-100.0) ABG O2 Content 15.5 %vol L %vol (16.0-22.0) ABG Base Excess 6.1 mEq/l mEq/l (+/-2.0) A-a Gradient 84.9 mmHg mmHg Oxyhemoglobin 94.0 % THb % THb (90.0-100.0) Carboxyhemoglobin 0.5 % THb % THb (0-2.0) Methemoglobin 0.2 %THb %THb (0-1.5) Reduced Hemoglobin 5.3 %THb H %THb (0-5.0) Total Hemoglobin 11.7 g/dL L g/dL (12.0-18.0) O2 Delivery Device Ventilator O2 Liters/Min Not Reportable Minute Volume 5 LPM LPM Vent Rate Not Reportable Vent Mode Asv FiO2 30 % % Tidal Volume Not Reportable PEEP 5 cmH2O cmH2O Peak Inspir Pressure Not Reportable Pressure Support Not Reportable Sodium 139 mmol/L mmol/L (137-145) Potassium 4.2 mmol/L mmol/L (3.4-5.0) Chloride 106 mmol/L mmol/L (98-107) Carbon Dioxide 32 mmol/L H mmol/L (22-30) Anion Gap 1 mmol/L L mmol/L (8-16) BUN 22 mg/dL H mg/dL (9-20) Creatinine 0.70 mg/dL mg/dL (0.7-1.3) Estim Creat Clear Calc 106 ml/min ml/min Estimated GFR > 60 (59 - ) Glucose 98 mg/dL mg/dL (75-110) Calcium 8.4 mg/dL mg/dL (8.4-10.2) Magnesium 2.1 mg/dL mg/dL (1.6-2.3) Total Bilirubin 0.3 mg/dL mg/dL (0.2-1.3) AST 60 U/L H U/L (17-59) ALT 68 U/L H U/L (4-50) Alkaline Phosphatase 77 U/L U/L (38-126) Total Protein 6.0 g/dL L g/dL (6.3-8.2) Albumin 2.4 g/dL L g/dL (3.5-5.1) Patient hx anesthesia problems: none Family hx anesthesia problems: none PMFSH Past Medical History Medical History (Updated 03/29/21 @ 17:58 by Adolfo Higginbotham CRNA) Acute respiratory failure Atrial fibrillation Cardiomyopathy Community acquired pneumonia COPD (chronic obstructive pulmonary disease) Elevated brain natriuretic peptide (BNP) level Fentanyl use disorder, mild, abuse Septic shock Streptococcus pneumoniae pneumonia Systolic heart failure Social History Social History (Reviewed 03/29/21 @ 17:58 by Justyn
[2021-03-30] VITALS (41 sets, daily range): BP systolic 78–144; BP diastolic 44–62; PULSE 46–81; RESP 15–28; TEMP 36.3–36.7; O2SAT 93–100
[2021-03-30] MEDS: IPRATROPIUM BR 0.02% INH SOLN 0.5 MG/2.5 ML VIAL INHALATION ×4 (02:51→19:31)
[2021-03-30] MEDS: ALBUTEROL SULFATE NEB 2.5 MG/0.5 ML INH INHALATION ×4 (02:51→19:31)
[2021-03-30] MEDS: fentaNYL CITRATE INJ (*CRX) 100 MCG/2 ML VIAL 50 MCG IV PUSH ×2 (04:45→20:15)
[2021-03-30] MEDS: PROPOFOL IV EMULSION 100 ML 8.67 MG IV CONT (04:50)
[2021-03-30 04:52] LABS: Hematocrit 30.9 % (42.0-52.0); Hemoglobin 9.8 g/dL (14.0-18.0); Mean Corpuscular HGB Conc 31.7 g/dl (32-36); Mean Corpuscular Hemoglobin 29.5 pg (26-34); Mean Corpuscular Volume 93.1 fl (80-100); Mean Platelet Volume 9.7 fl (7.4-10.4); Platelet Count Result 268 k/mm3 (150-375); Red Blood Count 3.32 M/mm3 (4.6-6.20); Red Cell Distribution Width 15.2 % (11.5-14.5); White Blood Count 7.9 K/mm3 (4.5-10.0)
[2021-03-30] MEDS: dexmedeTOMIDine 400 MCG/100 ML 400 MCG/100 ML BAG 16.85 MCG IV CONT ×4 (04:57→23:41)
[2021-03-30 05:10] LABS: Alanine Aminotransferase 70 U/L (4-50); Albumin Level 2.4 g/dL (3.5-5.1); Alkaline Phosphatase 87 U/L (38-126); Anion Gap 3 mmol/L (8-16); Aspartate Amino Transferase 52 U/L (17-59); Bilirubin,Total 0.4 mg/dL (0.2-1.3); Blood Urea Nitrogen 19 mg/dL (9-20); Calcium 8.3 mg/dL (8.4-10.2); Carbon Dioxide 30 mmol/L (22-30); Chloride 106 mmol/L (98-107); Estimated CRCL calculation 122 ml/min; Estimated Glomerular Filt Rate > 60; Glucose 99 mg/dL (75-110); Potassium 3.8 mmol/L (3.4-5.0); Sodium 139 mmol/L (137-145)
[2021-03-30 05:49] LABS: Alveolar/Arterial O2 Gradient 98.9 mmHg; Base Excess ABG 5.7 mEq/l (+/-2.0); Carboxyhemoglobin 0.4 % THb (0-2.0); Fractional Inspired Oxygen 30 %; HCO3 ABG 30.2 mEq/l (22.0-26.0); Methemoglobin ABG 0.2 %THb (0-1.5); Oxygen Content ABG 15.6 %vol (16.0-22.0); Oxygen Saturation ABG 93.5 % (95.0-100.0); Oxyhemoglobin 91.8 % THb (90.0-100.0); PCO2 ABG 43.3 mmHg (35.0-45.0); PO2 ABG 64.1 mmHg (80.0-100.0); PO2 FiO2 Ratio Arterial Blood 2.14 %; Reduced Hemoglobin 7.6 %THb (0-5.0); Total Hemoglobin 12.1 g/dL (12.0-18.0); pH ABG 7.461 (7.350-7.450)
[2021-03-30 05:50] LABS: Device VENTILATOR; Modified Allen's Test Pass; Site Drawn RIGHT RADIAL
[2021-03-30 05:51] LABS: Arterial Blood Gas PEEP 5 cmH2O; Arterial Blood Gas Vent Mode ASV
[2021-03-30 05:52] LABS: Arterial Blood Gas Minute Volume 5 LPM
--- NOTE | 2021-03-30 05:59 | WPDHPUPDATE1 ---
History and Physical Update Update Date/Time: 03/30/21 05:59 History and Physical has been reviewed, including an updated exam of the patient. There are NO changes in the patient's condition. Risks, benefits, and alternatives have been discussed and questions answered. Patient agrees to proceed with procedure.
[2021-03-30] MEDS: CENTRAL LINE FLUSH 10 ML IV PUSH ×3 (06:18→20:18)
[2021-03-30] MEDS: FAMOTIDINE 20 MG/2 ML VIAL IV PUSH ×2 (08:31→20:18)
[2021-03-30 08:40] LABS: Prothrombin Time 13.9 Seconds (11.1-14.7)
[2021-03-30 08:41] LABS: Partial Thromboplastin Time 35.8 SECONDS (22.3-36.8)
--- NOTE | 2021-03-30 08:50 | WPDINTPN ---
Progress Note: A&P Assessment and Plan (1) Acute respiratory failure: Code(s): J96.00 - Acute respiratory failure, unspecified whether with hypoxia or hypercapnia Status: Acute Assessment and Plan: Acute Respiratory failure secondary to source pneumococcal community-acquired pneumonia and baseline COPD Continue full mechanical ventilation support to prevent hypoxemia/hypercarbia and end organ damage. ABG and chest x-ray reviewed Patient has failed daily weaning trial for last few days due to high RSBI and respiratory distress, tachycardia and tachypnea - Currently on ASV. -patient is scheduled for tracheostomy and PEG tube placement today, 03/30/2021. His daughter is also agreeable ABG reviewed continue ASV to 60% minute ventilation Continue Lasix as needed Continue Bronchodilators Completed course of steroids Daily Sedation holiday On propofol, Precedex for now. (2) Community acquired pneumonia: Qualifiers: Laterality: right Lung location: unspecified part of lung Qualified Code(s): J18.9 - Pneumonia, unspecified organism Code(s): J18.9 - Pneumonia, unspecified organism Status: Acute Assessment and Plan: Pneumococcal community-acquired pneumonia Blood culture is growing Streptococcus pneumoniae Discontinued vancomycin. -completed a course of Rocephin on 03/29/2020 Patient completed 5 days of atypical coverage with doxycycline Urine Legionella negative -urine pneumococcal antigen was detected on 03/18/2021 (3) Suspected COVID-19 virus infection: Code(s): Z20.822 - Contact with and (suspected) exposure to COVID-19 Status: Acute Assessment and Plan: COVID-19 suspected in ED and PCR was ordered although clinical picture not consistent PCR came back negative and isolation discontinued (4) Septic shock: Code(s): A41.9 - Sepsis, unspecified organism; R65.21 - Severe sepsis with septic shock Status: Acute Assessment and Plan: Resolved: Status post vasopressors ECHO echo confirmed EF of 20-25% and dilation of right ventricle and right ventricle systolic failure (5) Systolic heart failure: Code(s): I50.20 - Unspecified systolic (congestive) heart failure Status: Acute Assessment and Plan: Summary 1. Complete two-dimensional, color flow and Doppler transthoracic echocardiogram is performed. 2. Left ventricular chamber dimension is mildly enlarged. 3. Left ventricular systolic function is severely reduced, estimated at 20-25%. 4. There is no increased left ventricular wall thickness. 5. Left ventricular septal wall motion is abnormal with septal motion related to bundle branch block. 6. The left ventricular diastolic function is grade I diastolic dysfunction. 7. Global hypokinesis of the left ventricle. 8. Right ventricular chamber dimension is severely enlarged. 9. Right ventricular systolic function is reduced. 10. Left atrial chamber dimension is mildly enlarged. 11. Right atrial chamber dimension is moderately enlarged. 12. There is moderate aortic valve sclerosis. 13. There is moderate mitral valve regurgitation. 14. There is mild to moderate tricuspid valve regurgitation. 15. Mild pulmonary hypertension, estimated pulmonary arterial systolic pressure is 39 mmHg. 16. There is mild pulmonic regurgitation. 17. The aortic root size at the sinus of Valsalva is mildly dilated. Holding further IV fluids. 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 Right ankle-brachial index 1.25, normal. 2. Left ankle-brachial index 1.20, normal. 3. Severely decreased right toe
--- NOTE | 2021-03-30 09:15 | WPDANESEPPF ---
Anes - Initial Pre Proc Eval Procedure: Operation Date: 03/30/21 10:45 Proposed Procedures p Tracheostomy - Ankit Menjivar MD Date/Time: 03/30/21 09:15 Surgeon: Rashad Luna MD Pre Op Diagnosis: Pneumonia, Respiratory Failure Patient Data Age: 60 Gender: M Height: 1.83 m Weight: 100.2 kg Last Vital Signs Temp 36.6 C 03/30/21 04:00 Pulse 54 L 03/30/21 08:35 Resp 19 03/30/21 08:35 BP 98/44 L 03/30/21 06:00 Pulse Ox 97 03/30/21 08:20 Allergies Allergy/AdvReac Type Severity Reaction Status Date / Time codeine Allergy Dyspnea / Verified 03/19/21 06:44 SOB Home Medications Medication Instructions Recorded Confirmed Type albuterol sulfate INHALATION 03/18/21 History fluticasone propion-salmeterol INHALATION 03/18/21 03/18/21 History [Wixela Inhub] prednisone 03/18/21 History Laboratory Tests 03/30/21 03/30/21 03/30/21 04:30 04:30 05:43 WBC 7.9 K/mm3 K/mm3 (4.5-10.0) RBC 3.32 M/mm3 L M/mm3 (4.6-6.20) Hgb 9.8 g/dL L g/dL (14.0-18.0) Hct 30.9 % L % (42.0-52.0) MCV 93.1 fl fl (80-100) MCH 29.5 pg pg (26-34) MCHC 31.7 g/dl L g/dl (32-36) RDW 15.2 % H % (11.5-14.5) Plt Count 268 k/mm3 k/mm3 (150-375) MPV 9.7 fl fl (7.4-10.4) PT INR APTT Puncture Site Right radial ABG pH 7.461 H (7.350-7.450) ABG pCO2 43.3 mmHg mmHg (35.0-45.0) ABG pO2 64.1 mmHg L mmHg (80.0-100.0) ABG PO2/FiO2 Ratio 2.14 % % ABG HCO3 30.2 mEq/l H mEq/l (22.0-26.0) ABG O2 Saturation 93.5 % L % (95.0-100.0) ABG O2 Content 15.6 %vol L %vol (16.0-22.0) ABG Base Excess 5.7 mEq/l mEq/l (+/-2.0) A-a Gradient 98.9 mmHg mmHg Oxyhemoglobin 91.8 % THb % THb (90.0-100.0) Carboxyhemoglobin 0.4 % THb % THb (0-2.0) Methemoglobin 0.2 %THb %THb (0-1.5) Reduced Hemoglobin 7.6 %THb H %THb (0-5.0) Total Hemoglobin 12.1 g/dL g/dL (12.0-18.0) O2 Delivery Device Ventilator O2 Liters/Min Not Reportable Minute Volume 5 LPM LPM Vent Rate Not Reportable Vent Mode Asv FiO2 30 % % Tidal Volume Not Reportable PEEP 5 cmH2O cmH2O Peak Inspir Pressure Not Reportable Pressure Support Not Reportable Sodium 139 mmol/L mmol/L (137-145) Potassium 3.8 mmol/L mmol/L (3.4-5.0) Chloride 106 mmol/L mmol/L (98-107) Carbon Dioxide 30 mmol/L mmol/L (22-30) Anion Gap 3 mmol/L L mmol/L (8-16) BUN 19 mg/dL mg/dL (9-20) Creatinine 0.60 mg/dL L mg/dL (0.7-1.3) Estim Creat Clear Calc 122 ml/min ml/min Estimated GFR > 60 (59 - ) Glucose 99 mg/dL mg/dL (75-110) Calcium 8.3 mg/dL L mg/dL (8.4-10.2) Magnesium 2.0 mg/dL mg/dL (1.6-2.3) Total Bilirubin 0.4 mg/dL mg/dL (0.2-1.3) AST 52 U/L U/L (17-59) ALT 70 U/L H U/L (4-50) Alkaline Phosphatase 87 U/L U/L (38-126) Total Protein 6.0 g/dL L g/dL (6.3-8.2) Albumin 2.4 g/dL L g/dL (3.5-5.1) 03/30/21 08:15 WBC RBC Hgb Hct MCV MCH MCHC RDW Plt Count MPV PT 13.9 Seconds Seconds (11.1-14.7) INR 1.0 APTT 35.8 SECONDS SECONDS (22.3-36.8) Puncture Site ABG pH ABG pCO2 ABG pO2 ABG PO2/FiO2 Ratio ABG HCO3 ABG O2 Saturation ABG O2 Content ABG Base Excess A-a Gradient Oxyhemoglobin Carboxyhemoglobin Methemoglobin Reduced Hemoglobin Total Hemoglobin O2 Delivery Device
--- NOTE | 2021-03-30 10:08 | PM.PNCARD ---
Progress Note: A&P Assessment and Plan (1) Atrial fibrillation: Code(s): I48.91 - Unspecified atrial fibrillation <SONJA Yates - Last Filed: 03/30/21 10:16> Status: Acute <SONJA Yates - Last Filed: 03/30/21 10:16> Assessment and Plan: New onset of parosyxmal AFib secondary to acute illness. Heart rate in aa fib was controlled on no rate-controlling medications suggesting some AV node disease. Currently back in NSR, with full-dose Lovenox. Will not resume amiodarone in an attempt pharmacologic cardioversion because of elevated liver enzymes, though they are improving. <SONJA Yates - Last Filed: 03/30/21 10:16> (2) Systolic heart failure: Code(s): I50.20 - Unspecified systolic (congestive) heart failure <SONJA Yates - Last Filed: 03/30/21 10:16> Status: Acute <SONJA Yates - Last Filed: 03/30/21 10:16> Assessment and Plan: New onset? systolic congestive heart failure. Has received a lot of IV fluids this admission but appears to be spontaneously diuresing, so far. BP acceptable to initiate low dose SHILO. Will titrate and introduce additional heart failure agents as blood pressure and heart rate tolerate. Off pressors. Carvedilol has been placed on hold at this time. <SONJA Yates - Last Filed: 03/30/21 10:16> (3) Cardiomyopathy: Code(s): I42.9 - Cardiomyopathy, unspecified <SONJA Yates - Last Filed: 03/30/21 10:16> Status: Acute <SONJA Yates - Last Filed: 03/30/21 10:16> Assessment and Plan: Four-chamber cardiac enlargement with EF of 20-25%, mod MR and RV hypokinesis. <SONJA Yates - Last Filed: 03/30/21 10:16> (4) Community acquired pneumonia: Qualifiers: Laterality: right Lung location: unspecified part of lung Qualified Code(s): J18.9 - Pneumonia, unspecified organism <SONJA Yates - Last Filed: 03/30/21 10:16> Code(s): J18.9 - Pneumonia, unspecified organism <SONJA Yates - Last Filed: 03/30/21 10:16> Status: Acute <SONJA Yates - Last Filed: 03/30/21 10:16> Assessment and Plan: Appears to be strep pneumonia. Continue antibiotics <SONJA Yates - Last Filed: 03/30/21 10:16> (5) Septic shock: Code(s): A41.9 - Sepsis, unspecified organism; R65.21 - Severe sepsis with septic shock <SONJA Yates - Last Filed: 03/30/21 10:16> Status: Acute <SONJA Yates - Last Filed: 03/30/21 10:16> Assessment and Plan: Secondary to strep pneumonia. Blood cultures positive for strep pneumonia. Wean Levophed to off. Continue antibiotics and supportive care. <SONJA Yates - Last Filed: 03/30/21 10:16> (6) Acute respiratory failure: Code(s): J96.00 - Acute respiratory failure, unspecified whether with hypoxia or hypercapnia <SONJA Yates - Last Filed: 03/30/21 10:16> Status: Acute <SONJA Yates - Last Filed: 03/30/21 10:16> Assessment and Plan: On the ventilator managed by ICU team. Going for tracheostomy placement today. <SONJA Yates - Last Filed: 03/30/21 10:16> (7) Hyponatremia: Code(s): E87.1 - Hypo-osmolality and hyponatremia <SONJA Yates - Last Filed: 03/30/21 10:16> Status: Acute <SONJA Yates - Last Filed: 03/30/21 10:16> Assessment and Plan: Hypokalemia and hyponatremia resolved. <SONJA Yates - Last Filed: 03/30/21 10:16> Additional Plan <SONJA Yates - Last Filed:
[2021-03-30] MEDS: PROPOFOL IV EMULSION 100 ML 17.33 MG IV CONT (10:24)
[2021-03-30] MEDS: LIDO 1%/EPINEPHRINE 1:100,000 50 ML VIAL INFILTRATE (10:29)
--- NOTE | 2021-03-30 10:39 | PCDIET ---
Nutrition Follow-Up Complete: Nutrition Diagnosis: Inadequate oral intake related to oral intubation as evidenced by need for enteral feeding. Nutrition Goal: Patient to meet estimated nutritional needs. Goal in progress. Patient currently NPO for PEG and tracheostomy. Previously tolerating tube feedings at ordered goal. Last recorded weight is 100.2 kg which is increased from last review. -I/O documented. Bowel Motility: BM x 1 on 03/29/21. Labs Reviewed: Hgb (9.8), Hct (30.9), Cr (0.6), Alb (2.4), Paul Ca (9.58) Meds Noted: Albuterol, Coreg, Ancef, Precedex, Pepcid, Fentanyl, Atrovent, Prinivil, Propofol (rate of 17.33mL/hr provides 457kcal per day) Additional Notes: No documented skin breakdown. Will continue to monitor with same goal. Nutrition Monitoring and Evaluation: Follow up every Monday/Monday.
--- NOTE | 2021-03-30 11:14 | P.OP_ITS ---
Procedure Note - Detailed Date of Procedure 03/30/21 Pre-op Diagnosis Pneumonia, Respiratory Failure Post-op Diagnosis same Procedure Performed Trachestomy Surgeon Ankit Menjivar MD Anesthesia general Description of Procedure Patient prepped and draped fashion all esthesia a vertical incision made above t he sternal notch the cricoid was exceptionally low dissection carried down thyroid isthmus was above the level of where the trach needed to be placed a vertical incision made in the trachea on spreading of the Trousseau dilator there is a significant amount of blood was coming from the thyroid isthmus was cauterized 8. Shiley placed in balloon blown up and Surgicel placed in all areas patient returned to ICU in good condition Urine Output 1,000 Complications No immediate complications Condition stable Disposition ICU
[2021-03-30] MEDS: PROPOFOL IV EMULSION 100 ML 21.04 MG IV CONT ×3 (11:42→20:16)
--- NOTE | 2021-03-30 12:06 | SUR.OPER ---
Ventilation settings and sedation per swing type lathe operator. ICU nurses, Dylan at bedside.
[2021-03-30] MEDS: LIDOCAINE 5% PATCH 1 PATCH TRANSDERM (15:38)
--- NOTE | 2021-03-30 15:46 | PM.IMPN ---
Progress Note: A&P Assessment and Plan (1) Community acquired pneumonia: Qualifiers: Laterality: right Lung location: unspecified part of lung Qualified Code(s): J18.9 - Pneumonia, unspecified organism Code(s): J18.9 - Pneumonia, unspecified organism Status: Acute (2) Septic shock: Code(s): A41.9 - Sepsis, unspecified organism; R65.21 - Severe sepsis with septic shock Status: Acute (3) Acute respiratory failure: Code(s): J96.00 - Acute respiratory failure, unspecified whether with hypoxia or hypercapnia Status: Acute (4) Elevated brain natriuretic peptide (BNP) level: Code(s): R79.89 - Other specified abnormal findings of blood chemistry Status: Acute (5) Hyponatremia: Code(s): E87.1 - Hypo-osmolality and hyponatremia Status: Acute (6) Atrial fibrillation: Code(s): I48.91 - Unspecified atrial fibrillation Status: Acute (7) COPD (chronic obstructive pulmonary disease): Code(s): J44.9 - Chronic obstructive pulmonary disease, unspecified Status: Acute (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 levophed started. continue to titrate for a MAP of 65. blodo cutlure growign strep pneumoniae, lielky source pneuonia. sputum cutlrue pending. covid neative. # right lobe pneumonia: contineuv ancomycin, ceftraixone, azithromycn. check resp culture, pneumonococccal ag, mycoplasma, legionelal. check fro COVID. pneumococcal pneumonia with bacteremia. covid negative. # afib with rvr: cadiologycosnulted. on and on baord. bsack to sinus rhythm now. # Acute respiratory failure hypoxic. and hypercarbic. s/p intubation and mechincal ventilation. recheck abg in 2 hrs. adjust vent setting as needed. # Elevated BNP: echo with systolic dysfunction. # hyponatremia: monitor. mild. # DVT proph: lovenox # Full code #c ardiomyopathy: ef 5%. cardiology on board. new onset. josr mclaughlin per cards 03/29/21 12:40 03/23 Patient remains on ventilator acute respiratory failure secondary to community-acquired pneumonia, being treated with ceftriaxone and doxycycline, patient is seen by engineer process and appreciate patient also had a episodes of atrial fibrillation rate is controlled seen by cardiology patient now remains in sinus rhythm, will continue to monitor. 03/24 Patient remains on ventilator acute respiratory failure secondary to community-acquired pneumonia, being treated with ceftriaxone and doxycycline, today patient was given trial of SBT however was not able to tolerate patient remains on ventilator patient is seen engineer process and appreciate. 03/25 patient remains on ventilator patient was given trial of SBT to wean the patient off however failed, seen by shank taper not requiring any pressors and not in AFib, patient seen engineer process and Cardiology and appreciate. 03/26 patient again was given SBT and failed still remains on ventilator, patient with PAF most likely triggered by acute illness, remains in NSR, patient is seen by engineer process and Cardiology and appreciate. 03/27 patient again today was given SBT and fair within 30 minutes patient was switch back the ventilator, I spoke with engineer process suspect patient will need trach and patient is agreeable with that, patient remains in sinus, patient seen by Cardiology and
[2021-03-31] VITALS (43 sets, daily range): BP systolic 80–148; BP diastolic 44–65; PULSE 54–116; RESP 16–29; TEMP 36.4–38.1; O2SAT 96–99
[2021-03-31] MEDS: fentaNYL CITRATE INJ (*CRX) 100 MCG/2 ML VIAL 50 MCG IV PUSH ×6 (00:40→19:46)
[2021-03-31] MEDS: PROPOFOL IV EMULSION 100 ML 21.04 MG IV CONT ×3 (01:22→11:28)
[2021-03-31] MEDS: ALBUTEROL SULFATE NEB 2.5 MG/0.5 ML INH INHALATION ×4 (02:07→20:00)
[2021-03-31] MEDS: IPRATROPIUM BR 0.02% INH SOLN 0.5 MG/2.5 ML VIAL INHALATION ×4 (02:07→20:00)
[2021-03-31 05:18] LABS: Alveolar/Arterial O2 Gradient 102.8 mmHg; Base Excess ABG 4.6 mEq/l (+/-2.0); Carboxyhemoglobin 0.3 % THb (0-2.0); Fractional Inspired Oxygen 30 %; HCO3 ABG 28.4 mEq/l (22.0-26.0); Methemoglobin ABG 0.1 %THb (0-1.5); Oxygen Content ABG 13.4 %vol (16.0-22.0); Oxygen Saturation ABG 94.3 % (95.0-100.0); Oxyhemoglobin 92.3 % THb (90.0-100.0); PCO2 ABG 38.7 mmHg (35.0-45.0); PO2 ABG 65.6 mmHg (80.0-100.0); PO2 FiO2 Ratio Arterial Blood 2.19 %; Reduced Hemoglobin 7.3 %THb (0-5.0); Total Hemoglobin 10.3 g/dL (12.0-18.0); pH ABG 7.483 (7.350-7.450)
[2021-03-31 05:19] LABS: Device VENTILATOR; Modified Allen's Test Pass; Site Drawn RIGHT RADIAL
[2021-03-31 05:20] LABS: Arterial Blood Gas PEEP 5 cmH2O; Arterial Blood Gas Tidal Volume 420 ml; Arterial Blood Gas Vent Mode CMV; Arterial Blood Gas Ventilator rate 20 /MIN
[2021-03-31 05:36] LABS: Hematocrit 28.7 % (42.0-52.0); Hemoglobin 9.1 g/dL (14.0-18.0); Mean Corpuscular HGB Conc 31.7 g/dl (32-36); Mean Corpuscular Volume 91.4 fl (80-100); Platelet Count Result 318 k/mm3 (150-375); Red Blood Count 3.14 M/mm3 (4.6-6.20); Red Cell Distribution Width 15.4 % (11.5-14.5); White Blood Count 10.4 K/mm3 (4.5-10.0)
[2021-03-31 05:45] LABS: Alanine Aminotransferase 51 U/L (4-50); Albumin Level 2.5 g/dL (3.5-5.1); Alkaline Phosphatase 90 U/L (38-126); Anion Gap 3 mmol/L (8-16); Aspartate Amino Transferase 35 U/L (17-59); Bilirubin,Total 0.5 mg/dL (0.2-1.3); Blood Urea Nitrogen 18 mg/dL (9-20); Calcium 8.1 mg/dL (8.4-10.2); Carbon Dioxide 30 mmol/L (22-30); Chloride 105 mmol/L (98-107); Estimated CRCL calculation 94 ml/min; Estimated Glomerular Filt Rate > 60; Glucose 117 mg/dL (75-110); Potassium 3.9 mmol/L (3.4-5.0); Sodium 138 mmol/L (137-145)
[2021-03-31] MEDS: dexmedeTOMIDine 400 MCG/100 ML 400 MCG/100 ML BAG 16.85 MCG IV CONT ×4 (06:22→22:37)
[2021-03-31] MEDS: CENTRAL LINE FLUSH 10 ML IV PUSH ×3 (06:23→21:00)
--- NOTE | 2021-03-31 07:51 | WPDANESPN ---
Anes - Prog Note Post-Op Date/Time: 03/31/21 07:51 Cardiovascular status: normal (cardiology is following patient closely.) Respiratory status: other (trach placement 03/30, on ventilator ) Airway patency: other (trach) Mental status: other (sedated on propofol drip) Post-Op hydration status: other (tube feeding) Vital Signs: Last Vital Signs Temp 36.4 C 03/31/21 04:00 Pulse 60 03/31/21 07:02 Resp 19 03/31/21 07:02 BP 121/63 03/31/21 06:00 Pulse Ox 98 03/31/21 06:00 Pain Score (VAS): unable to assess I/O: Intake & Output 03/30/21 03/30/21 03/31/21 15:59 23:59 07:59 Intake Total 200 400 833 Output Total 1000 600 500 Balance -800 -200 333 Laboratory Tests 03/31/21 05:17 03/31/21 05:17 03/30/21 03/31/21 03/31/21 08:15 04:39 05:17 WBC 10.4 H RBC 3.14 L Hgb 9.1 L Hct 28.7 L MCV 91.4 MCH 29.0 MCHC 31.7 L RDW 15.4 H Plt Count 318 MPV 10.0 PT 13.9 INR 1.0 APTT 35.8 Puncture Site Right radial ABG pH 7.483 H ABG pCO2 38.7 ABG pO2 65.6 L ABG PO2/FiO2 Ratio 2.19 ABG HCO3 28.4 H ABG O2 Saturation 94.3 L ABG O2 Content 13.4 L ABG Base Excess 4.6 A-a Gradient 102.8 Oxyhemoglobin 92.3 Carboxyhemoglobin 0.3 Methemoglobin 0.1 Reduced Hemoglobin 7.3 H Total Hemoglobin 10.3 L O2 Delivery Device Ventilator O2 Liters/Min Not Reportable Minute Volume Not Reportable Vent Rate 20 Vent Mode Cmv FiO2 30 Tidal Volume 420 PEEP 5 Peak Inspir Pressure Not Reportable Pressure Support Not Reportable Sodium Potassium Chloride Carbon Dioxide Anion Gap BUN Creatinine Estim Creat Clear Calc Estimated GFR Glucose Calcium Magnesium Total Bilirubin AST ALT Alkaline Phosphatase Total Protein Albumin 03/31/21 05:17 WBC RBC Hgb Hct MCV MCH MCHC RDW Plt Count MPV PT INR APTT Puncture Site ABG pH ABG pCO2 ABG pO2 ABG PO2/FiO2 Ratio ABG HCO3 ABG O2 Saturation ABG O2 Content ABG Base Excess A-a Gradient Oxyhemoglobin Carboxyhemoglobin Methemoglobin Reduced Hemoglobin Total Hemoglobin O2 Delivery Device O2 Liters/Min Minute Volume Vent Rate Vent Mode FiO2 Tidal Volume PEEP Peak Inspir Pressure Pressure Support Sodium 138 Potassium 3.9 Chloride 105 Carbon Dioxide 30 Anion Gap 3 L BUN 18 Creatinine 0.80 Estim Creat Clear Calc 94 Estimated GFR > 60 Glucose 117 H Calcium 8.1 L Magnesium 2.0 Total Bilirubin 0.5 AST 35 ALT 51 H Alkaline Phosphatase 90 Total Protein 6.0 L Albumin 2.5 L Post-procedural complaints: none Patient Feedback: Patient satisfied with anesthetic care.
--- NOTE | 2021-03-31 08:05 | WPDINTPN ---
Progress Note: A&P Assessment and Plan (1) Acute respiratory failure: Code(s): J96.00 - Acute respiratory failure, unspecified whether with hypoxia or hypercapnia Status: Acute Assessment and Plan: Acute Respiratory failure secondary to source pneumococcal community-acquired pneumonia and baseline COPD Continue full mechanical ventilation support to prevent hypoxemia/hypercarbia and end organ damage. ABG and chest x-ray reviewed -patient was a failure to wean from the mechanical ventilator, after discussing with the patient and the daughter, patient had his tracheostomy and PEG tube placement on 03/30/2021. -post tracheostomy patient was placed on CMV mode of ventilation, this morning he is more awake, will switch him to ASV mode. Continue Lasix as needed Continue Bronchodilators Completed course of steroids Daily Sedation holiday On propofol, Precedex for now. (2) Community acquired pneumonia: Qualifiers: Laterality: right Lung location: unspecified part of lung Qualified Code(s): J18.9 - Pneumonia, unspecified organism Code(s): J18.9 - Pneumonia, unspecified organism Status: Acute Assessment and Plan: Pneumococcal community-acquired pneumonia Blood culture is growing Streptococcus pneumoniae Discontinued vancomycin. -completed a course of Rocephin on 03/29/2020 Patient completed 5 days of atypical coverage with doxycycline Urine Legionella negative -urine pneumococcal antigen was detected on 03/18/2021 (3) Suspected COVID-19 virus infection: Code(s): Z20.822 - Contact with and (suspected) exposure to COVID-19 Status: Acute Assessment and Plan: COVID-19 suspected in ED and PCR was ordered although clinical picture not consistent PCR came back negative and isolation discontinued (4) Septic shock: Code(s): A41.9 - Sepsis, unspecified organism; R65.21 - Severe sepsis with septic shock Status: Acute Assessment and Plan: Resolved: Status post vasopressors ECHO echo confirmed EF of 20-25% and dilation of right ventricle and right ventricle systolic failure (5) Systolic heart failure: Code(s): I50.20 - Unspecified systolic (congestive) heart failure Status: Acute Assessment and Plan: Summary 1. Complete two-dimensional, color flow and Doppler transthoracic echocardiogram is performed. 2. Left ventricular chamber dimension is mildly enlarged. 3. Left ventricular systolic function is severely reduced, estimated at 20-25%. 4. There is no increased left ventricular wall thickness. 5. Left ventricular septal wall motion is abnormal with septal motion related to bundle branch block. 6. The left ventricular diastolic function is grade I diastolic dysfunction. 7. Global hypokinesis of the left ventricle. 8. Right ventricular chamber dimension is severely enlarged. 9. Right ventricular systolic function is reduced. 10. Left atrial chamber dimension is mildly enlarged. 11. Right atrial chamber dimension is moderately enlarged. 12. There is moderate aortic valve sclerosis. 13. There is moderate mitral valve regurgitation. 14. There is mild to moderate tricuspid valve regurgitation. 15. Mild pulmonary hypertension, estimated pulmonary arterial systolic pressure is 39 mmHg. 16. There is mild pulmonic regurgitation. 17. The aortic root size at the sinus of Valsalva is mildly dilated. Holding further IV fluids. 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 Right ankle-brachial index 1.25, normal. 2. Left ankle-brachial index 1.20, normal. 3. Severely decreased right toe brac
[2021-03-31] MEDS: lisinopriL 2.5 MG TABLET PO (08:50)
[2021-03-31] MEDS: LIDOCAINE 5% PATCH 1 PATCH TRANSDERM (08:50)
[2021-03-31] MEDS: ASPIRIN 325 MG TABLET PO (08:50)
[2021-03-31] MEDS: FAMOTIDINE 20 MG/2 ML VIAL IV PUSH ×2 (08:50→21:01)
--- NOTE | 2021-03-31 08:57 | WPDGIPROGNO ---
Progress Note: A&P Assessment and Plan (1) Acute respiratory failure: Code(s): J96.00 - Acute respiratory failure, unspecified whether with hypoxia or hypercapnia Status: Acute Assessment and Plan: now has trach. Still attempting to wean from ventilator (2) Dysphagia: Code(s): R13.10 - Dysphagia, unspecified Status: Acute Assessment and Plan: he seems to be tolerating the tube feedings well. Subjective Date/time seen: 03/31/21 08:57 he seems to be tolerating tube feedings which are up to 50 cc per hour. A little more alert today Review of Systems Cardiovascular: Cardiovascular: Reports no additional cardiovascular complaints Respiratory: Comments: no new complaints Gastrointestinal: Comments: denies abdominal pain Exam GI: Inspection: other ( G-tube site looks good) GI Palp: No abdominal tenderness and Yes Soft to palpation Objective Data Vital Signs Vital Signs: Vital Signs - 24 hr 03/30/21 10:00 03/30/21 11:30 03/30/21 11:38 Temperature Pulse Rate 56 L 71 63 Respiratory Rate 19 24 H Blood Pressure 112/61 Pulse Oximetry 97 99 03/30/21 11:42 03/30/21 11:50 03/30/21 12:00 Temperature 36.3 C L Pulse Rate 65 63 56 L Respiratory Rate 23 H 24 H 20 Blood Pressure 104/59 L 92/59 L Pulse Oximetry 96 99 03/30/21 12:39 03/30/21 12:44 03/30/21 12:49 Temperature Pulse Rate 51 L 60 56 L Respiratory Rate 20 24 H 23 H Blood Pressure 80/50 L 83/53 L 88/55 L Pulse Oximetry 96 98 98 03/30/21 12:54 03/30/21 14:00 03/30/21 14:15 Temperature Pulse Rate 58 L 48 L Respiratory Rate 28 H 20 Blood Pressure 100/59 L 78/52 L 83/54 L Pulse Oximetry 97 98 03/30/21 14:22 03/30/21 14:26 03/30/21 14:30 Temperature Pulse Rate 48 L 46 L Respiratory Rate 20 Blood Pressure 96/55 L Pulse Oximetry 99 03/30/21 16:00 03/30/21 17:10 03/30/21 17:35 Temperature 36.7 C Pulse Rate 54 L 52 L 57 L Respiratory Rate 18 22 H Blood Pressure 93/55 L Pulse Oximetry 93 100 06/15/21 17:44 03/30/21 18:00 03/30/21 19:31 Temperature Pulse Rate 57 L 54 L 60 Respiratory Rate 22 H 20 28 H Blood Pressure 94/57 L Pulse Oximetry 99 100 03/30/21 19:42 03/30/21 20:00 03/30/21 20:16 Temperature 36.7 C Pulse Rate 63 67 72 Respiratory Rate 26 H 20 19 Blood Pressure 87/49 L Pulse Oximetry 99 03/30/21 22:00 03/30/21 23:10 03/30/21 23:41 Temperature Pulse Rate 58 L 65 62 Respiratory Rate 22 H 22 H Blood Pressure 95/53 L Pulse Oximetry 97 99 03/31/21 00:00 03/31/21 01:02 03/31/21 01:22 Temperature 38.1 C H Pulse Rate 61 54 L 54 L Respiratory Rate 22 H 20 20 Blood Pressure 86/55 L Pulse Oximetry 97 03/31/21 02:00 03/31/21 02:05 03/31/21 02:08 Temperature Pulse Rate 57 L 57 L 60 Respiratory Rate 20 24 H Blood Pressure 80/54 L Pulse Oximetry 96 96 03/31/21 02:15 03/31/21 04:00 03/31/21 04:49 Temperature 36.4 C Pulse Rate 60 68 63 Respiratory Rate 21 H 20 Blood Pressure 80/44 L Pulse Oximetry 97 97 03/31/21 05:38 03/31/21 06:00 03/31/21 06:08 Temperature Pulse Rate 64 66 60 Respiratory Rate 22 H 23 H 19 Blood Pressure 121/63 Pulse Oximetry 98 03/31/21 06:22 03/31/21 07:02 03/31/21 08:24 Temperature Pulse Rate 64 60 60 Respiratory Rate 22 H 19 20 Blood Pressure Pulse Oximetry 03/31/21 08:30 03/31/21 08:39 Temperature Pulse Rate 65 65 Respiratory Rate 19 Blood Pressure Pulse Oximetry 97 Intake/Output Intake/Output: Intake & Output 03/28/21 03/29/21 03/30/21 03/31/21 23:59 23:59 23:59 23:59 Intake Total 2193 2122 1569 833 Output Total 1625 2450 2950 500 Balance 397 -564 -2203 333 Meds/Results Medications: Active Medications Generic Name Dose Route Start Last Admin Trade Name Freq PRN Reason Stop Dose Admin Albuterol 2.5 mg 03/18/21 08:00 03/31/21 08:23 Albuterol Sulfate Neb 2.5 Mg/0.5 Ml Inh INHALATION 2.5
--- NOTE | 2021-03-31 11:15 | PCDIET ---
ICU Rounding Note: Patient tolerating Jevity 1.2 at 50mL/hr goal rate s/p PEG and trach yesterday. Recommend proceeding toward MD ordered goal of 75mL/hr Jevity 1.2, given plan to taper off Propofol. If unable to taper, will recommend resuming protein flush BID. Last recorded weight is 92.4kg which is stable with last review. Bowel Motility: Last documented BM on 03/29/21. Labs Reviewed: WBC (10.4), RBC (3.14), Hgb (9.1), Hct (28.7), Glu (117), Alb (2.5), Paul Ca (9.3) Meds Noted: Albuterol, Pepcid, Levophed, Coreg, Fentanyl, Lisinopril, Precedex, Atrovent, Versed, Propofol (rate of 21.04mL/hr providing 555kcal per day) Additional Notes: No documented pressure sores. Following daily in ICU rounds. Assessing/reassessing every Monday/Monday.
--- NOTE | 2021-03-31 15:35 | PM.IMPN ---
Progress Note: A&P Assessment and Plan (1) Community acquired pneumonia: Qualifiers: Laterality: right Lung location: unspecified part of lung Qualified Code(s): J18.9 - Pneumonia, unspecified organism Code(s): J18.9 - Pneumonia, unspecified organism Status: Acute (2) Septic shock: Code(s): A41.9 - Sepsis, unspecified organism; R65.21 - Severe sepsis with septic shock Status: Acute (3) Acute respiratory failure: Code(s): J96.00 - Acute respiratory failure, unspecified whether with hypoxia or hypercapnia Status: Acute (4) Elevated brain natriuretic peptide (BNP) level: Code(s): R79.89 - Other specified abnormal findings of blood chemistry Status: Acute (5) Hyponatremia: Code(s): E87.1 - Hypo-osmolality and hyponatremia Status: Acute (6) Atrial fibrillation: Code(s): I48.91 - Unspecified atrial fibrillation Status: Acute (7) COPD (chronic obstructive pulmonary disease): Code(s): J44.9 - Chronic obstructive pulmonary disease, unspecified Status: Acute (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 levophed started. continue to titrate for a MAP of 65. blodo cutlure growign strep pneumoniae, lielky source pneuonia. sputum cutlrue pending. covid neative. # right lobe pneumonia: contineuv ancomycin, ceftraixone, azithromycn. check resp culture, pneumonococccal ag, mycoplasma, legionelal. check fro COVID. pneumococcal pneumonia with bacteremia. covid negative. # afib with rvr: cadiologycosnulted. on and on baord. bsack to sinus rhythm now. # Acute respiratory failure hypoxic. and hypercarbic. s/p intubation and mechincal ventilation. recheck abg in 2 hrs. adjust vent setting as needed. # Elevated BNP: echo with systolic dysfunction. # hyponatremia: monitor. mild. # DVT proph: lovenox # Full code #c ardiomyopathy: ef 5%. cardiology on board. new onset. josr mclaughlin per cards 03/29/21 12:40 03/23 Patient remains on ventilator acute respiratory failure secondary to community-acquired pneumonia, being treated with ceftriaxone and doxycycline, patient is seen by sensor operator and appreciate patient also had a episodes of atrial fibrillation rate is controlled seen by cardiology patient now remains in sinus rhythm, will continue to monitor. 03/24 Patient remains on ventilator acute respiratory failure secondary to community-acquired pneumonia, being treated with ceftriaxone and doxycycline, today patient was given trial of SBT however was not able to tolerate patient remains on ventilator patient is seen sensor operator and appreciate. 03/25 patient remains on ventilator patient was given trial of SBT to wean the patient off however failed, seen by milk route deliverer not requiring any pressors and not in AFib, patient seen sensor operator and Cardiology and appreciate. 03/26 patient again was given SBT and failed still remains on ventilator, patient with PAF most likely triggered by acute illness, remains in NSR, patient is seen by sensor operator and Cardiology and appreciate. 03/27 patient again today was given SBT and fair within 30 minutes patient was switch back the ventilator, I spoke with sensor operator suspect patient will need trach and patient is agreeable with that, patient remains in sinus, patient seen by Cardiology and
[2021-03-31] MEDS: HYDROcodone/acetaminophen (*CRX) 5-325 MG TABLET 1 TAB PO (20:59)
[2021-03-31] MEDS: LORazepam INJ (*CRX) 2 MG/ML VIAL 1 MG IV PUSH (20:59)
[2021-03-31] MEDS: QUEtiapine FUMARATE 25 MG TABLET 50 MG FEED TUBE (21:00)
[2021-04-01] VITALS (38 sets, daily range): BP systolic 106–175; BP diastolic 51–80; PULSE 68–111; RESP 12–27; TEMP 36.5–37.8; O2SAT 93–100
[2021-04-01] MEDS: fentaNYL CITRATE INJ (*CRX) 100 MCG/2 ML VIAL 50 MCG IV PUSH ×7 (00:42→22:26)
[2021-04-01] MEDS: LORazepam INJ (*CRX) 2 MG/ML VIAL 1 MG IV PUSH ×7 (00:43→20:57)
[2021-04-01] MEDS: HYDROcodone/acetaminophen (*CRX) 5-325 MG TABLET 1 TAB PO ×3 (02:24→13:27)
[2021-04-01] MEDS: IPRATROPIUM BR 0.02% INH SOLN 0.5 MG/2.5 ML VIAL INHALATION ×4 (02:29→20:32)
[2021-04-01] MEDS: ALBUTEROL SULFATE NEB 2.5 MG/0.5 ML INH INHALATION ×4 (02:29→20:32)
[2021-04-01 04:29] LABS: Alveolar/Arterial O2 Gradient 100.1 mmHg; Base Excess ABG 4.9 mEq/l (+/-2.0); Carboxyhemoglobin 0.4 % THb (0-2.0); Fractional Inspired Oxygen 30 %; HCO3 ABG 28.8 mEq/l (22.0-26.0); Methemoglobin ABG 0.2 %THb (0-1.5); Oxygen Content ABG 16.7 %vol (16.0-22.0); Oxygen Saturation ABG 94.5 % (95.0-100.0); Oxyhemoglobin 92.6 % THb (90.0-100.0); PCO2 ABG 39.9 mmHg (35.0-45.0); PO2 ABG 66.9 mmHg (80.0-100.0); PO2 FiO2 Ratio Arterial Blood 2.23 %; Reduced Hemoglobin 6.8 %THb (0-5.0); Total Hemoglobin 12.8 g/dL (12.0-18.0); pH ABG 7.476 (7.350-7.450)
[2021-04-01 04:30] LABS: Arterial Blood Gas PEEP 5 cmH2O; Arterial Blood Gas Vent Mode ASV; Device VENTILATOR; Modified Allen's Test Pass; Site Drawn RIGHT RADIAL
[2021-04-01] MEDS: dexmedeTOMIDine 400 MCG/100 ML 400 MCG/100 ML BAG 16.85 MCG IV CONT (05:24)
[2021-04-01] MEDS: CENTRAL LINE FLUSH 10 ML IV PUSH ×2 (05:27→13:28)
[2021-04-01 05:46] LABS: Basophils Percent Auto 0.3 % (0.2-1.2); Eosinophils Absolute Auto 0.1 K/mm3 (0-0.3); Eosinophils Percent Auto 1.2 % (0-4.4); Hematocrit 26.9 % (42.0-52.0); Hemoglobin 8.4 g/dL (14.0-18.0); Immature Granulocyte Absolute 0.02 K/mm3 (0.00-0.031); Immature Granulocyte Percent A 0.2 % (0-0.5); Lymphocytes Absolute Auto 1.22 K/mm3 (0.9-3.2); Lymphocytes Percent Auto 13.3 % (18.3-44.2); Mean Corpuscular HGB Conc 31.2 g/dl (32-36); Mean Corpuscular Hemoglobin 29.2 pg (26-34); Mean Corpuscular Volume 93.4 fl (80-100); Mean Platelet Volume 9.5 fl (7.4-10.4); Monocytes Absolute Auto 1.1 K/mm3 (0.1-0.6); Monocytes Percent Auto 11.9 % (2.6-8.5); Neutrophils Absolute Auto 6.7 K/mm3 (1.3-6.7); Neutrophils Percent Auto 73.1 % (45.5-73.1); Platelet Count Result 312 k/mm3 (150-375); Red Blood Count 2.88 M/mm3 (4.6-6.20); Red Cell Distribution Width 15.1 % (11.5-14.5); White Blood Count 9.2 K/mm3 (4.5-10.0)
[2021-04-01 05:57] LABS: Alanine Aminotransferase 46 U/L (4-50); Albumin Level 2.4 g/dL (3.5-5.1); Alkaline Phosphatase 97 U/L (38-126); Anion Gap 0 mmol/L (8-16); Aspartate Amino Transferase 42 U/L (17-59); Bilirubin,Total 0.6 mg/dL (0.2-1.3); Blood Urea Nitrogen 17 mg/dL (9-20); Carbon Dioxide 32 mmol/L (22-30); Chloride 106 mmol/L (98-107); Estimated CRCL calculation 106 ml/min; Estimated Glomerular Filt Rate > 60; Glucose 101 mg/dL (75-110); Phosphorus 3.9 mg/dL (2.5-4.5); Potassium 3.9 mmol/L (3.4-5.0); Sodium 138 mmol/L (137-145)
--- NOTE | 2021-04-01 09:30 | PM.PNCARD ---
Progress Note: A&P Assessment and Plan (1) Atrial fibrillation: Code(s): I48.91 - Unspecified atrial fibrillation Status: Acute Assessment and Plan: New onset of parosyxmal AFib secondary to acute illness. Heart rate in aa fib was controlled on no rate-controlling medications suggesting some AV node disease. Currently back in NSR, with full-dose Lovenox. Will not resume amiodarone in an attempt pharmacologic cardioversion because of elevated liver enzymes, though they are improving. (2) Systolic heart failure: Code(s): I50.20 - Unspecified systolic (congestive) heart failure Status: Acute Assessment and Plan: New onset? systolic congestive heart failure. Has received a lot of IV fluids this admission but appears to be spontaneously diuresing, so far. BP acceptable to initiate low dose SHILO. Will titrate and introduce additional heart failure agents as blood pressure and heart rate tolerate. Off pressors. Restarted carvedilol. (3) Cardiomyopathy: Code(s): I42.9 - Cardiomyopathy, unspecified Status: Acute Assessment and Plan: Four-chamber cardiac enlargement with EF of 20-25%, mod MR and RV hypokinesis. (4) Community acquired pneumonia: Qualifiers: Laterality: right Lung location: unspecified part of lung Qualified Code(s): J18.9 - Pneumonia, unspecified organism Code(s): J18.9 - Pneumonia, unspecified organism Status: Acute Assessment and Plan: Appears to be strep pneumonia. Continue antibiotics (5) Septic shock: Code(s): A41.9 - Sepsis, unspecified organism; R65.21 - Severe sepsis with septic shock Status: Acute Assessment and Plan: Secondary to strep pneumonia. Blood cultures positive for strep pneumonia. Off pressors. Continue antibiotics and supportive care. (6) Acute respiratory failure: Code(s): J96.00 - Acute respiratory failure, unspecified whether with hypoxia or hypercapnia Status: Acute Assessment and Plan: On the ventilator managed by ICU team. S/p tracheostomy placement (7) Hyponatremia: Code(s): E87.1 - Hypo-osmolality and hyponatremia Status: Acute Assessment and Plan: Hypokalemia and hyponatremia resolved. Subjective Date/time seen: 04/01/21 09:30 Interval history: Follow-up for paroxysmal atrial fibrillation, with new onset CHF and cardiomyopathy, EF 20-25%. The patient was admitted with pneumonia requiring intubation, and septic shock with strep bacteremia. 03/20/2021: Patient had brief episode of atrial fibrillation yesterday which resolved. Today he went back and atrial fibrillation this morning with a controlled rate, heart rate 90-100. His vasopressin was discontinued a while back and Levophed weaned off this morning. Remains on ventilator, FiO2 35%. Remains on sedation with fentanyl and Versed. Date of Service 03/21/2021: Pt converted to NSR yesterday evening. REmains intubated, FiO2 30%, getting tube feedings. REmains off pressors. Trying to wean sedation but pt gets very agitated. I's and O's: 3500 cc in/5900 out spontaneously yesterday. Date of service 03/22/2021: Patient remains in NSR. No ectopy noted on telemetry overnight. He remains intubated on 30% FiO2. Sedated with propofol and fentanyl. Off pressors. BP has remained stable. Date of service 03/23/2021: Patient unable to tolerate sedation being lifted for a breathing trial - becomes agitated, tachycardic. Still in NSR. BP stable. Date of service: 03/24/2021 patient clinically without much change. Still intubated on ventilator support. X-ray does look somewhat congested. Remains off pressors
--- NOTE | 2021-04-01 09:36 | WPDINTPN ---
Progress Note: A&P Assessment and Plan (1) Acute respiratory failure: Code(s): J96.00 - Acute respiratory failure, unspecified whether with hypoxia or hypercapnia Status: Acute Assessment and Plan: Acute Respiratory failure secondary to source pneumococcal community-acquired pneumonia and baseline COPD Continue full mechanical ventilation support to prevent hypoxemia/hypercarbia and end organ damage. ABG and chest x-ray reviewed -patient was a failure to wean from the mechanical ventilator, after discussing with the patient and the daughter, patient had his tracheostomy and PEG tube placement on 03/30/2021. -post tracheostomy patient was placed on CMV mode of ventilation, this morning he is more awake, will switch him to ASV mode. Continue Lasix as needed Continue Bronchodilators Completed course of steroids Daily Sedation holiday OFf PROPOFOL, REMAINS ON PRECEDEX INFUSION -started on Seroquel -complains of pain around the tracheostomy and PEG tube site, started on [place] (2) Community acquired pneumonia: Qualifiers: Laterality: right Lung location: unspecified part of lung Qualified Code(s): J18.9 - Pneumonia, unspecified organism Code(s): J18.9 - Pneumonia, unspecified organism Status: Acute Assessment and Plan: Pneumococcal community-acquired pneumonia Blood culture is growing Streptococcus pneumoniae Discontinued vancomycin. -completed a course of Rocephin on 03/29/2020 Patient completed 5 days of atypical coverage with doxycycline Urine Legionella negative -urine pneumococcal antigen was detected on 03/18/2021 (3) Suspected COVID-19 virus infection: Code(s): Z20.822 - Contact with and (suspected) exposure to COVID-19 Status: Acute Assessment and Plan: COVID-19 suspected in ED and PCR was ordered although clinical picture not consistent PCR came back negative and isolation discontinued (4) Septic shock: Code(s): A41.9 - Sepsis, unspecified organism; R65.21 - Severe sepsis with septic shock Status: Acute Assessment and Plan: Resolved: Status post vasopressors ECHO echo confirmed EF of 20-25% and dilation of right ventricle and right ventricle systolic failure (5) Systolic heart failure: Code(s): I50.20 - Unspecified systolic (congestive) heart failure Status: Acute Assessment and Plan: Summary 1. Complete two-dimensional, color flow and Doppler transthoracic echocardiogram is performed. 2. Left ventricular chamber dimension is mildly enlarged. 3. Left ventricular systolic function is severely reduced, estimated at 20-25%. 4. There is no increased left ventricular wall thickness. 5. Left ventricular septal wall motion is abnormal with septal motion related to bundle branch block. 6. The left ventricular diastolic function is grade I diastolic dysfunction. 7. Global hypokinesis of the left ventricle. 8. Right ventricular chamber dimension is severely enlarged. 9. Right ventricular systolic function is reduced. 10. Left atrial chamber dimension is mildly enlarged. 11. Right atrial chamber dimension is moderately enlarged. 12. There is moderate aortic valve sclerosis. 13. There is moderate mitral valve regurgitation. 14. There is mild to moderate tricuspid valve regurgitation. 15. Mild pulmonary hypertension, estimated pulmonary arterial systolic pressure is 39 mmHg. 16. There is mild pulmonic regurgitation. 17. The aortic root size at the sinus of Valsalva is mildly dilated. 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 Right ankle-brachial index 1.25, normal. 2. Left ankle-br
[2021-04-01] MEDS: LIDOCAINE 5% PATCH 1 PATCH TRANSDERM (09:37)
[2021-04-01] MEDS: QUEtiapine FUMARATE 25 MG TABLET 50 MG FEED TUBE ×2 (09:37→20:58)
[2021-04-01] MEDS: FAMOTIDINE 20 MG/2 ML VIAL IV PUSH ×2 (09:37→20:58)
[2021-04-01] MEDS: lisinopriL 2.5 MG TABLET PO (09:37)
[2021-04-01] MEDS: ASPIRIN 325 MG TABLET PO (09:37)
[2021-04-01] MEDS: FUROSEMIDE INJ 40 MG/4 ML VIAL IV PUSH (10:59)
[2021-04-01] MEDS: dexmedeTOMIDine 400 MCG/100 ML 400 MCG/100 ML BAG 9.63 MCG IV CONT (13:18)
--- NOTE | 2021-04-01 13:24 | PCFNICU ---
ICU Rounding Note: Patient is tolerating Jevity 1.2 at 70mls/hr with 30ml water flush every 4 hours via PEG. RN advancing to goal of 75mls/ hour which will provide 1,980 calories, 91 grams of protein, and 1331 mls of free water over 22 hours/day. MD ordered to discontinue Prostat now that the tube feeding is meeting needs. Tube feeding rate increasing now that Propofol has stopped. Last recorded weight is 94kg. Positive I/O. Bowel Motility: Last documented on 03/29. Discussed with MD. Labs Reviewed: Alb (2.4) Meds Noted: Pepcid, Ativan, Atrovent, [place], Albuterol, Fentanyl, Lisinopril, Coreg, Prinivil, Miralax, Seroquel, Bisacodyl, Lidoderm, Additional Notes: Friction area on right arm. Waiting to transfer to LTAC. Following daily in ICU rounds. Assessing/reassessing every Monday/ Monday.
--- NOTE | 2021-04-01 13:39 | PCNSR ---
On 04/01/21, the student, Aurora Martinez, provided care and completed [facility] documentation on this patient. I have reviewed the student's documentation and agree with the findings.
[2021-04-01] MEDS: HYDROcodone/acetaminophen (*CRX) 5-325 MG TABLET 2 TAB PO ×2 (15:38→20:01)
[2021-04-01] MEDS: polyethylene glycoL 3350 17 GM POWD.PACK PO (18:34)
[2021-04-01] MEDS: SCOPOLAMINE 1.5 MG PATCH TRANSDERM (20:57)
[2021-04-01] MEDS: ONDANSETRON INJ 4 MG/2 ML VIAL IV PUSH (20:57)
[2021-04-01] MEDS: carvediloL 3.125 MG TABLET PO (20:59)
[2021-04-02] VITALS (22 sets, daily range): BP systolic 118–177; BP diastolic 65–76; PULSE 89–114; RESP 16–28; TEMP 36.9–37.8; O2SAT 93–99
[2021-04-02] MEDS: LORazepam INJ (*CRX) 2 MG/ML VIAL 1 MG IV PUSH ×5 (00:16→16:58)
[2021-04-02] MEDS: ONDANSETRON INJ 4 MG/2 ML VIAL IV PUSH (01:00)
[2021-04-02] MEDS: ALBUTEROL SULFATE NEB 2.5 MG/0.5 ML INH INHALATION ×3 (02:10→14:00)
[2021-04-02] MEDS: IPRATROPIUM BR 0.02% INH SOLN 0.5 MG/2.5 ML VIAL INHALATION ×3 (02:10→14:01)
[2021-04-02] MEDS: fentaNYL CITRATE INJ (*CRX) 100 MCG/2 ML VIAL 50 MCG IV PUSH ×4 (02:53→16:58)
[2021-04-02 05:16] LABS: HCO3 ABG 30.5 mEq/l (22.0-26.0); PCO2 ABG 43.3 mmHg (35.0-45.0); PO2 ABG 70.6 mmHg (80.0-100.0); pH ABG 7.465 (7.350-7.450)
[2021-04-02 05:17] LABS: Alveolar/Arterial O2 Gradient 92.4 mmHg; Base Excess ABG 6.1 mEq/l (+/-2.0); Carboxyhemoglobin 0.8 % THb (0-2.0); Methemoglobin ABG 0.2 %THb (0-1.5); Oxygen Content ABG 15.2 %vol (16.0-22.0); Oxyhemoglobin 93.5 % THb (90.0-100.0); PO2 FiO2 Ratio Arterial Blood 2.35 %; Reduced Hemoglobin 5.5 %THb (0-5.0); Total Hemoglobin 11.5 g/dL (12.0-18.0)
[2021-04-02 05:18] LABS: Device VENTILATOR; Fractional Inspired Oxygen 30 %; Site Drawn RIGHT BRACHIAL
[2021-04-02 05:19] LABS: Arterial Blood Gas Minute Volume 5 LPM; Arterial Blood Gas PEEP 5 cmH2O; Arterial Blood Gas Vent Mode ASV
[2021-04-02 05:26] LABS: Hematocrit 28.1 % (42.0-52.0); Mean Corpuscular Hemoglobin 29.5 pg (26-34); Mean Corpuscular Volume 92.1 fl (80-100); Platelet Count Result 382 k/mm3 (150-375); Red Blood Count 3.05 M/mm3 (4.6-6.20); Red Cell Distribution Width 15.1 % (11.5-14.5); White Blood Count 11.2 K/mm3 (4.5-10.0)
[2021-04-02 05:34] LABS: Alanine Aminotransferase 63 U/L (4-50); Albumin Level 2.9 g/dL (3.5-5.1); Alkaline Phosphatase 144 U/L (38-126); Anion Gap 6 mmol/L (8-16); Aspartate Amino Transferase 54 U/L (17-59); Bilirubin,Total 0.9 mg/dL (0.2-1.3); Blood Urea Nitrogen 14 mg/dL (9-20); Calcium 8.3 mg/dL (8.4-10.2); Carbon Dioxide 28 mmol/L (22-30); Chloride 103 mmol/L (98-107); Estimated CRCL calculation 144 ml/min; Estimated Glomerular Filt Rate > 60; Glucose 87 mg/dL (75-110); Phosphorus 3.7 mg/dL (2.5-4.5); Potassium 4.2 mmol/L (3.4-5.0); Sodium 137 mmol/L (137-145)
[2021-04-02] MEDS: METOCLOPRAMIDE HCL INJ 10 MG/2 ML VIAL 5 MG IV PUSH ×2 (08:27→16:58)
[2021-04-02] MEDS: LIDOCAINE 5% PATCH 1 PATCH TRANSDERM (08:27)
[2021-04-02] MEDS: carvediloL 3.125 MG TABLET PO (08:29)
[2021-04-02] MEDS: ASPIRIN 325 MG TABLET PO (08:29)
[2021-04-02] MEDS: FAMOTIDINE 20 MG/2 ML VIAL IV PUSH (08:29)
[2021-04-02] MEDS: lisinopriL 2.5 MG TABLET PO (08:29)
--- NOTE | 2021-04-02 09:44 | WPDINTPN ---
Progress Note: A&P Assessment and Plan (1) Acute respiratory failure: Code(s): J96.00 - Acute respiratory failure, unspecified whether with hypoxia or hypercapnia Status: Acute Assessment and Plan: Acute Respiratory failure secondary to source pneumococcal community-acquired pneumonia and baseline COPD ABG and chest x-ray reviewed -patient was a failure to wean from the mechanical ventilator, after discussing with the patient and the daughter, patient had his tracheostomy and PEG tube placement on 03/30/2021. -on ASV mode of ventilation - Continue Bronchodilators Completed course of steroids -OFF FENTANYL AND PRECEDEX INFUSION -INCREASE SEROQUEL -pain medications were also increased (2) Community acquired pneumonia: Qualifiers: Laterality: right Lung location: unspecified part of lung Qualified Code(s): J18.9 - Pneumonia, unspecified organism Code(s): J18.9 - Pneumonia, unspecified organism Status: Acute Assessment and Plan: Pneumococcal community-acquired pneumonia Blood culture is growing Streptococcus pneumoniae Discontinued vancomycin. -completed a course of Rocephin on 03/29/2020 Patient completed 5 days of atypical coverage with doxycycline Urine Legionella negative -urine pneumococcal antigen was detected on 03/18/2021 (3) Suspected COVID-19 virus infection: Code(s): Z20.822 - Contact with and (suspected) exposure to COVID-19 Status: Acute Assessment and Plan: COVID-19 suspected in ED and PCR was ordered although clinical picture not consistent PCR came back negative and isolation discontinued (4) Septic shock: Code(s): A41.9 - Sepsis, unspecified organism; R65.21 - Severe sepsis with septic shock Status: Acute Assessment and Plan: Resolved: Status post vasopressors ECHO echo confirmed EF of 20-25% and dilation of right ventricle and right ventricle systolic failure (5) Systolic heart failure: Code(s): I50.20 - Unspecified systolic (congestive) heart failure Status: Acute Assessment and Plan: Summary 1. Complete two-dimensional, color flow and Doppler transthoracic echocardiogram is performed. 2. Left ventricular chamber dimension is mildly enlarged. 3. Left ventricular systolic function is severely reduced, estimated at 20-25%. 4. There is no increased left ventricular wall thickness. 5. Left ventricular septal wall motion is abnormal with septal motion related to bundle branch block. 6. The left ventricular diastolic function is grade I diastolic dysfunction. 7. Global hypokinesis of the left ventricle. 8. Right ventricular chamber dimension is severely enlarged. 9. Right ventricular systolic function is reduced. 10. Left atrial chamber dimension is mildly enlarged. 11. Right atrial chamber dimension is moderately enlarged. 12. There is moderate aortic valve sclerosis. 13. There is moderate mitral valve regurgitation. 14. There is mild to moderate tricuspid valve regurgitation. 15. Mild pulmonary hypertension, estimated pulmonary arterial systolic pressure is 39 mmHg. 16. There is mild pulmonic regurgitation. 17. The aortic root size at the sinus of Valsalva is mildly dilated. 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 Right ankle-brachial index 1.25, normal. 2. Left ankle-brachial index 1.20, normal. 3. Severely decreased right toe brachial index. Appears to have improved Continue maintaining map (7) Atrial fibrillation: Code(s): I48.91 - Unspecified atrial fibrillation Status: Acute Assessment and Plan: On admission marcellus
--- NOTE | 2021-04-02 11:32 | PCNFU ---
Nutrition Follow-Up Complete: Inadequate oral intake related to oral intubation as evidenced by need for enteral feeding. Goal: Patient to meet estimated nutritional needs. Patient is progressing towards goal. We will continue current goal. Pt current nutrition is Jevity 1.2 at 10 ml/hr goal rate 75 ml/hr. Last recorded weight is 87.9 kg, down from 93 kg on admit. Bowel Motility:+BM reported 04/02 Labs Reviewed:Alb 2.9,Cr 0.5 Meds Noted:Reglan,Pepcid, Ativan, Atrovent, [place], Albuterol, Fentanyl, Lisinopril, Coreg, Prinivil, Miralax, Seroquel, Bisacodyl, Lidoderm. Additional Notes: Skin: red/warm-abdomen. Patient had episode of emesis last night. TF on hold. Plans to restart tube feedings at 10 ml/hr of Jevity 1.2 today. Goal rate of tube feeding remains at 75 ml/hr providing 1980 kcals/92 gms protein/1331 ml water. Plans for LTAC. Monitoring: Follow up every Monday/Monday.
[2021-04-02] MEDS: QUEtiapine FUMARATE 100 MG TABLET FEED TUBE (11:45)
--- NOTE | 2021-04-02 12:19 | PM.PNCARD ---
Progress Note: A&P Additional Plan 60-year-old patient with community-acquired pneumonia ventilator dependency, persistent bandlike infiltrate in the right lung field otherwise no new findings on chest x-ray. Patient had atrial fibrillation during this hospitalization earlier has been in sinus rhythm now for a number of days. No further recommendations to treat her follow this. Plans are for transfer to long-term [facility] facility this afternoon. I will therefore sign off at this time Fletcher Amaya MD [facility] Subjective Date/time seen: Date of service: 04/02/21 12:19 Interval history: Follow-up for paroxysmal atrial fibrillation, with new onset CHF and cardiomyopathy, EF 20-25%. The patient was admitted with pneumonia requiring intubation, and septic shock with strep bacteremia. 03/20/2021: Patient had brief episode of atrial fibrillation yesterday which resolved. Today he went back and atrial fibrillation this morning with a controlled rate, heart rate 90-100. His vasopressin was discontinued a while back and Levophed weaned off this morning. Remains on ventilator, FiO2 35%. Remains on sedation with fentanyl and Versed. Date of Service 03/21/2021: Pt converted to NSR yesterday evening. REmains intubated, FiO2 30%, getting tube feedings. REmains off pressors. Trying to wean sedation but pt gets very agitated. I's and O's: 3500 cc in/5900 out spontaneously yesterday. Date of service 03/22/2021: Patient remains in NSR. No ectopy noted on telemetry overnight. He remains intubated on 30% FiO2. Sedated with propofol and fentanyl. Off pressors. BP has remained stable. Date of service 03/23/2021: Patient unable to tolerate sedation being lifted for a breathing trial - becomes agitated, tachycardic. Still in NSR. BP stable. Date of service: 03/24/2021 patient clinically without much change. Still intubated on ventilator support. X-ray does look somewhat congested. Remains off pressors. Date of service 03/25/2021: Patient awake and alert today. Able to follow commands. Upon questioning he indicates that he is having some back pain. Making slow progress. BP remains stable off pressors. Follow-up note/date of service 03/28/2021: Awake alert on the ventilator. No chest pain. He does have some swelling. Date of service 03/29/2021: Remains ventilated and on propofol but awakens to voice. Responds to questions and follows commands. He is off norepi today. Still reporting some back discomfort. Date of service 03/30/2021: Patient remains hemodynamically stable off pressors. Ventilated and sedated on precedex, propofol. He is going for trach placement this morning. Slow progress. Date of service 04/01/2021: He is s/p tracheostomy and PEG tube placement. Awake and alert today. Trying to communicate. He denies any cardiovascular complaints of any kind. Denies pain. Date of service: 04/02/2021 patient is clinically unchanged awake and alert on ventilator support. Anticipation/plans are for transfer to [facility] this afternoon. Exam Const: General: comfortable and no acute distress Neck: Neck: supple and no JVD Resp: Effort & Inspection: normal respiratory effort Auscultation: clear to auscultation bilaterally Cardio: Rate: regular rate Rhythm: regular rhythm GI: Auscultation: normal bowel sounds Objective Data Vital Signs Vital Signs: Vital Signs - 24 hr 04/01/21 12:46 04/01/21 13:16 04/01/21 13:18 Temperature Pulse Rate 77 92 88 Respiratory Rate 15 18 25 H Blood Pressure Pulse Oximetry 04/01/21 14:00 04/01/21 14:35 04/01/21 15:05 Temperature 37.2 C Pulse Rate 86 78 89 Respiratory Rate 22 H 14 Blood Pressure 135/58 L Pulse Oximetry 100 96 04/01/21 15:37 04/01/21 16:00 04/01/21 16:30 Temperature 37.7 C H Pulse Rate 84 80 77 Respiratory Rate 19 16 15 Blood Pressure 114/57 L Pulse Oximetry 97 04/01/21 16:56 04/01/21 17:30 04/01/21 18:00 Temperat
--- NOTE | 2021-04-02 14:40 | PM.IMPN ---
Progress Note: A&P Assessment and Plan (1) Community acquired pneumonia: Qualifiers: Laterality: right Lung location: unspecified part of lung Qualified Code(s): J18.9 - Pneumonia, unspecified organism Code(s): J18.9 - Pneumonia, unspecified organism Status: Acute (2) Septic shock: Code(s): A41.9 - Sepsis, unspecified organism; R65.21 - Severe sepsis with septic shock Status: Acute (3) Acute respiratory failure: Code(s): J96.00 - Acute respiratory failure, unspecified whether with hypoxia or hypercapnia Status: Acute (4) Elevated brain natriuretic peptide (BNP) level: Code(s): R79.89 - Other specified abnormal findings of blood chemistry Status: Acute (5) Hyponatremia: Code(s): E87.1 - Hypo-osmolality and hyponatremia Status: Acute (6) Atrial fibrillation: Code(s): I48.91 - Unspecified atrial fibrillation Status: Acute (7) COPD (chronic obstructive pulmonary disease): Code(s): J44.9 - Chronic obstructive pulmonary disease, unspecified Status: Acute (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 levophed started. continue to titrate for a MAP of 65. blodo cutlure growign strep pneumoniae, lielky source pneuonia. sputum cutlrue pending. covid neative. # right lobe pneumonia: contineuv ancomycin, ceftraixone, azithromycn. check resp culture, pneumonococccal ag, mycoplasma, legionelal. check fro COVID. pneumococcal pneumonia with bacteremia. covid negative. # afib with rvr: cadiologycosnulted. on and on baord. bsack to sinus rhythm now. # Acute respiratory failure hypoxic. and hypercarbic. s/p intubation and mechincal ventilation. recheck abg in 2 hrs. adjust vent setting as needed. # Elevated BNP: echo with systolic dysfunction. # hyponatremia: monitor. mild. # DVT proph: lovenox # Full code #c ardiomyopathy: ef 5%. cardiology on board. new onset. josr mclaughlin per cards 03/29/21 12:40 03/23 Patient remains on ventilator acute respiratory failure secondary to community-acquired pneumonia, being treated with ceftriaxone and doxycycline, patient is seen by bartender and appreciate patient also had a episodes of atrial fibrillation rate is controlled seen by cardiology patient now remains in sinus rhythm, will continue to monitor. 03/24 Patient remains on ventilator acute respiratory failure secondary to community-acquired pneumonia, being treated with ceftriaxone and doxycycline, today patient was given trial of SBT however was not able to tolerate patient remains on ventilator patient is seen bartender and appreciate. 03/25 patient remains on ventilator patient was given trial of SBT to wean the patient off however failed, seen by latex spooler not requiring any pressors and not in AFib, patient seen bartender and Cardiology and appreciate. 03/26 patient again was given SBT and failed still remains on ventilator, patient with PAF most likely triggered by acute illness, remains in NSR, patient is seen by bartender and Cardiology and appreciate. 03/27 patient again today was given SBT and fair within 30 minutes patient was switch back the ventilator, I spoke with bartender suspect patient will need trach and patient is agreeable with that, patient remains in sinus, patient seen by Cardiology and
--- NOTE | 2021-04-02 15:46 | PM.DS ---
DS: Admitting Diagnosis Admitting Diagnosis Admitting Diagnosis: respiratory failure, pneumonia DS: Discharge Diagnosis Discharge Diagnosis (1) Agitation: Code(s): R45.1 - Restlessness and agitation Status: Acute (2) Dysphagia: Code(s): R13.10 - Dysphagia, unspecified Status: Acute (3) Community acquired pneumonia: Qualifiers: Laterality: right Lung location: unspecified part of lung Qualified Code(s): J18.9 - Pneumonia, unspecified organism Code(s): J18.9 - Pneumonia, unspecified organism Status: Acute (4) Septic shock: Code(s): A41.9 - Sepsis, unspecified organism; R65.21 - Severe sepsis with septic shock Status: Acute (5) Acute respiratory failure: Code(s): J96.00 - Acute respiratory failure, unspecified whether with hypoxia or hypercapnia Status: Acute (6) Elevated brain natriuretic peptide (BNP) level: Code(s): R79.89 - Other specified abnormal findings of blood chemistry Status: Acute (7) Atrial fibrillation: Code(s): I48.91 - Unspecified atrial fibrillation Status: Acute (8) Streptococcus pneumoniae pneumonia: Code(s): J13 - Pneumonia due to Streptococcus pneumoniae Status: Acute (9) Systolic heart failure: Code(s): I50.20 - Unspecified systolic (congestive) heart failure Status: Acute (10) Cardiomyopathy: Code(s): I42.9 - Cardiomyopathy, unspecified Status: Acute (11) Bacteremia due to Streptococcus pneumoniae: Code(s): R78.81 - Bacteremia; B95.3 - Streptococcus pneumoniae as the cause of diseases classified elsewhere Status: Acute (12) COPD (chronic obstructive pulmonary disease): Code(s): J44.9 - Chronic obstructive pulmonary disease, unspecified Status: Acute (13) 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 levophed started on admission. Subsequently tapered off. blood culture growing strep pneumoniae, likely source pneumonia. covid negative. this has resovled. # Extensive right lobe pneumonia: started on broad spectrum antibitoics. pneumonococccal ag positive and was tapered to one. he completes the course of antibiotic treatment course. pneumococcal pneumonia with bacteremia. covid negative. # afib with rvr: Due to sepsis. Cardiology consulted was transient and was back in sinus rhythm and remained in sinus rhythm not he was initially started on full-dose he was not continued time this favors need to continue monitor his cardiac rhythm, if recurs, needs resumed. # Acute respiratory failure hypoxic. and hypercarbic. s/p intubation and mechanical ventilation.remained on vent. hence was eventaully trached and peg placed. remains on full support vent , which will be continued at LT[facility]. # Elevated BNP: echo with systolic dysfunction. Echo with severely reduced ejection fraction at 20-25% with grade 1 diastolic dysfunction, right ventricular systolic dysfunction moderate valve regurgitation and moderate tricuspid valve regurgitation he was placed on therapeutic anticoagulation. # hyponatremia: monitor. mild. # DVT proph: lovenox # Full code # cardiomyopathy: ef 5%. cardiology on board. new onset. acei, bb per cards # Agitation was placed on Seroquel which helped Time Spent with Patient Time attestation: Total time spent providing and/or coordinating discharge services:60 mins Exam Narrative: Exam Narrative: Exam Narrative: Patient is comfortable, NAD, HEENT: tracheostomy in place. LUNGS: Bilateral equla air etry, no respiratoyr distress HEART: RR S1S2 ABD: BS+, Soft and nontender Lower extremities: no edema , caynosis or clubbing, SKIN: nonjaundiced Neuro: on vent support, awake, not following commands DS: Data Data Completed and Pendin
== END 2021-04-02 18:28 | DRG 5 ==
LOC: ANHED 03-18 04:11 → ANHICU 03-18 04:57
PROVIDERS: Internal Medicine; Internal Medicine Gastroenterology; Otolaryngology; Admitting Provider Internal Medicine; Emergency Provider Emergency Medicine; Visit Provider Internal Medicine
PROC: 0B110F4 Bypass Trachea to Cutaneous with Tracheostomy Device, Open Approach (ICD-10-PCS; principal; 2021-03-30 10:45)
PROC: 0DH63UZ Insertion of Feeding Device into Stomach, Percutaneous Approach (ICD-10-PCS; CPT 43246; principal; 2021-03-30 12:00)
DX: A40.3 Sepsis due to Streptococcus pneumoniae (principal); R65.21 Severe sepsis with septic shock; J13 Pneumonia due to Streptococcus pneumoniae; J96.01 Acute respiratory failure with hypoxia; J96.02 Acute respiratory failure with hypercapnia; I50.21 Acute systolic (congestive) heart failure; I48.0 Paroxysmal atrial fibrillation; R13.19 Other dysphagia; E87.6 Hypokalemia; R57.0 Cardiogenic shock; I42.9 Cardiomyopathy, unspecified; E87.1 Hypo-osmolality and hyponatremia; J44.0 Chronic obstructive pulmonary disease with (acute) lower respiratory infection; R23.1 Pallor
CPT/HCPCS: 31500; 36415; 36600; 43246; 71045; 71275; 74018; 80048; 80053; 80202; 81001; 82375; 82550; 82565; 82805; 82948; 83050; 83605; 83735; 83880; 84100; 84484; 85025; 85027; 85610; 85730; 87040; 87070; 87077; 87186; 87205; 87449; 87581; 87899; 93005; 93306; 93923; 94002; 94003; 94640; 96365; 96374; 96375; 99285; A9270; C1751; C9803; J0282; J0330; J0456; J0690; J0696; J1650; J1720; J1815; J1940; J2060; J2250; J2405; J2704; J2765; J3010; J3370; J3480; J7030; J7512; Q9967; U0003; U0005

== ENCOUNTER 2021-05-02 11:44 | Emergency (ER) | payer OTHER, SELFPAY ==
[2021-05-02 11:45] VITALS: BP 138/101; PULSE 100; RESP 20; TEMP 36.8; O2SAT 98
--- NOTE | 2021-05-02 13:07 | ED.GENADULT ---
HPI - General Adult General Chief complaint: Unspecified Stated complaint: tubes need to be removed Time Seen by Provider: 05/02/21 12:07 Source: patient History of Present Illness HPI narrative: Patient is a 60 y/o male requesting gastrostomy tube removal. He was apparently admitted here approximately 1 month for pneumonia and respiratory failure requiring prolonged vent support. He had Trach and PEG. However, he recovered and he has been eating for a while. He does not recall when the last time the tube was used for feeding. He knows it's been over 1 week. He states that he feels well at time. He has no complaint and just wants his tube removed. Related Data Allergies Allergy/AdvReac Type Severity Reaction Status Date / Time Penicillins Allergy Severe Verified 04/01/21 11:42 ibuprofen Allergy Intermediate Verified 04/01/21 11:42 codeine Allergy Dyspnea / Verified 04/01/21 11:42 SOB Review of Systems Review of Systems: All systems reviewed & are unremarkable except as noted in HPI and below Gastrointestinal: Gastrointestinal: Denies abdominal pain, Denies diarrhea, Denies nausea, Denies vomiting and Reports other (has feeding tube) PENDING SALE TO [facility] Past Medical History Medical History Acute respiratory failure Atrial fibrillation Cardiomyopathy Community acquired pneumonia COPD (chronic obstructive pulmonary disease) Elevated brain natriuretic peptide (BNP) level Fentanyl use disorder, mild, abuse Septic shock Streptococcus pneumoniae pneumonia Systolic heart failure Social History Social History Alcohol intake: current Drinks per week: 5 Substance use: never Gender identity (if verbalized by the patient): Male Spiritual care concerns: No Exam Const: General: no acute distress and well developed Orientation/consciousness: oriented to person, oriented to place, oriented to time and patient oriented x3 HENMT: Head: normocephalic Ears: external ears normal General nose exam: Normal external nose present Eyes: General: appearance normal, both eyes and all related structures Conjunctivae: conjunctivae normal Neck: Neck: normal visual inspection and full ROM Resp: Effort & Inspection: normal respiratory effort and able to speak in complete sentences GI: Inspection: other (feeding tube in place in left upper quadrant) GI Palp: No abdominal tenderness and Yes Soft to palpation Skin: General skin exam: normal color, turgor normal and other (some bruise on abdomen likely due to injection during hospitalization) Neuro: General: oriented to person, oriented to place, oriented to time and patient oriented x3 Cognition (Neuro): normal cognition Extrem: General: normal to inspection, full ROM and no pedal edema Psych: Appearance: grossly normal Mental Status: mental status grossly normal Affect: normal affect Course Consultations Consultation #1: Discussed with Dr. Stinson (GI), who states attempt can be made to remove the G tube. If unsuccessful, patient can call his office to schedule removal in next few days. Date: 05/02/21 Time: 13:08 Vital Signs Vital signs: Vital Signs Temperature 36.8 C 05/02/21 11:45 Pulse Rate 100 05/02/21 11:45 Respiratory Rate 20 05/02/21 11:45 Blood Pressure 138/101 H 05/02/21 11:45 Pulse Oximetry 98 05/02/21 11:45 Temperature 36.8 C 05/02/21 11:45 Pulse Rate 100 05/02/21 11:45 Respiratory Rate 20 05/02/21 11:45 Blood Pressure 138/101 H 05/02/21 11:45 Pulse Oximetry 98 05/02/21 11:45 Procedures Foreign Body Removal Foreign Body #1: Foreign Body Removal Date: 05/02/21 Time Out Performed: yes Site: other (abdomen) Description of foreign body: other (Gastrostomy tube) Sedation/Analgesia: other (local anesthesia with 1% lidocaine is injected around gastrostomy site) Technique: manual removal and incision
[2021-05-02] MEDS: LIDOCAINE HCL 1% LOCAL INJ 20 ML VIAL (13:34)
== END 2021-05-02 13:57 | disposition home or self-care (01) ==
PROVIDERS: Emergency Provider Emergency Medicine
DX: Z43.1 Encounter for attention to gastrostomy (principal); I48.91 Unspecified atrial fibrillation; J44.9 Chronic obstructive pulmonary disease, unspecified; I50.30 Unspecified diastolic (congestive) heart failure; I42.9 Cardiomyopathy, unspecified; Z87.01 Personal history of pneumonia (recurrent)
CPT/HCPCS: 99282

== ENCOUNTER 2021-05-09 03:50 | Emergency (ER) | payer OTHER, SELFPAY ==
--- NOTE | ~2021-05-09 | US_ITS ---
US venous doppler [facility] DATE: 05/09/2021 07:56 INDICATION: Lower extremity pain and swelling, erythema TECHNIQUE: Real-time and color flow imaging and Doppler analysis of the veins of both lower extremiti es COMPARISON: None FINDINGS: The greater saphenous veins are patent. There is spontaneous and phasic flow, normal augmen tation and color flow signal and normal compression of the deep veins of both lower extremities. IMPRESSION: No evidence of deep venous thrombosis of the lower extremities Reviewed, dictated and finalized at [facility] Reviewed, dictated and finalized at [facility].
--- NOTE | ~2021-05-09 | XR_ITS ---
XR chest 2V DATE: 05/09/2021 04:06 INDICATION: Chest pain, shortness of breath. TECHNIQUE: AP and lateral views COMPARISON: 04/02/2021 portable AP chest FINDINGS: Tracheostomy tube is been removed since 04/02/2021. Bilateral hyperinflation suggesting COPD. Minimal infiltrate, atelectasis or fibrotic change at the lung bases. Probable residual scarring in the right midlung. Otherwise no pulmonary infiltrate or consolidation o r pulmonary mass lesion. Normal heart size. Aortic arch calcification. The central pulmonary arteries appear relatively prominent suggesting pulmonary hypertension. Probable chronic mild blunting of left costophrenic angle. No pleural effusion, pulmonary vascular co ngestion or pneumothorax. Diffuse osteopenia. IMPRESSION: Removal of tracheostomy tube and virtual resolution of lung infiltrates since 04/02/2021. Minimal probable linear scarring in the mid lateral right lung and minimal bibasilar infiltrate, atel ectasis or fibrotic change Bilateral hyperinflation and prominence of the central pulmonary arteries, suggesting COPD and pulmon radha hypertension Reviewed, dictated and finalized at [facility]. IMPRESSION: Removal of tracheostomy tube and virtual resolution of lung infiltr ates since 04/02/2021. Minimal probable linear scarring in the mid lateral right lung and minimal biba silar infiltrate, atelectasis or fibrotic change Bilateral hyperinflation and prominence of the central pulmonary arteries, sugg esting COPD and pulmonary hypertension
[2021-05-09 03:49] VITALS: BP 158/85; PULSE 92; RESP 14; TEMP 37.1; O2SAT 96
--- NOTE | 2021-05-09 03:54 | ECG_ITS ---
Measurements Intervals [place] Rate: 90 P: 69 LA: 154 QRS: 42 QRSD: 104 T: 65 QT: 366 QTc: 449 Interpretive Statements SINUS RHYTHM NORMAL ECG Electronically Signed On 05-09-2021 16:15:06 CDT by Raymon John D.O.
--- NOTE | 2021-05-09 04:00 | PC.NURSE ---
pt to xray at this time.
--- NOTE | 2021-05-09 04:18 | PC.NURSE ---
this rn attempted IV x2, no success.
[2021-05-09 04:43] LABS: Basophils Percent Auto 0.5 % (0.2-1.2); Eosinophils Absolute Auto 0.2 K/mm3 (0-0.3); Eosinophils Percent Auto 2.3 % (0-4.4); Hemoglobin 10.6 g/dL (14.0-18.0); Immature Granulocyte Absolute 0.03 K/mm3 (0.00-0.031); Immature Granulocyte Percent A 0.4 % (0-0.5); Lymphocytes Absolute Auto 1.55 K/mm3 (0.9-3.2); Lymphocytes Percent Auto 20.9 % (18.3-44.2); Mean Corpuscular HGB Conc 31.2 g/dl (32-36); Mean Corpuscular Hemoglobin 29.6 pg (26-34); Mean Platelet Volume 8.6 fl (7.4-10.4); Monocytes Absolute Auto 0.7 K/mm3 (0.1-0.6); Neutrophils Absolute Auto 4.9 K/mm3 (1.3-6.7); Neutrophils Percent Auto 65.9 % (45.5-73.1); Platelet Count Result 328 k/mm3 (150-375); Red Blood Count 3.58 M/mm3 (4.6-6.20); Red Cell Distribution Width 15.4 % (11.5-14.5); White Blood Count 7.4 K/mm3 (4.5-10.0)
[2021-05-09 04:53] LABS: Anion Gap 9 mmol/L (8-16); Blood Urea Nitrogen 9 mg/dL (9-20); Carbon Dioxide 27 mmol/L (22-30); Chloride 103 mmol/L (98-107); Estimated CRCL calculation 91 ml/min; Estimated Glomerular Filt Rate > 60; Glucose 99 mg/dL (65-110); INR 0.9; Potassium 3.9 mmol/L (3.4-5.0); Prothrombin Time 12.4 Seconds (11.1-14.7); Sodium 139 mmol/L (137-145)
[2021-05-09 04:54] LABS: Partial Thromboplastin Time 27.4 SECONDS (22.3-36.8)
[2021-05-09 05:06] LABS: NT Pro B Type Natriuretic Pept 215 pg/mL (5-100); Troponin I < 0.012 ng/mL (0.000-0.034)
[2021-05-09 05:13] VITALS: BP 140/79; PULSE 84; RESP 18; O2SAT 99
[2021-05-09 06:07] VITALS: BP 159/91; PULSE 85; RESP 22; O2SAT 98
--- NOTE | 2021-05-09 07:05 | ED.LOWEXIN ---
HPI - Extremity Injury (Lower) General Chief Complaint: Extremity Injury, Lower Stated Complaint: foot/ ankle pain/ lower extremity edema Time Seen by Provider: 05/09/21 07:04 History of Present Illness HPI Narrative: 60 yo male presents to the ED for leg pain. He reports that he has had bilateral lower leg and foot pain since yesterday. This was associated with swelling, redness, and warmth. He believes that this is a new problem. He had a systolic ejection fraction of 20% when he was here last month. He was reportedly discharged from [place] 3 days ago after a long hospitalization for pneumonia. He has not filled any medications prescribed from that visit. History limited by poor historian. Records obtained from [place]. It looks like he eloped from [facility] on the . I am still unsure of the exact course of his illness. Related Data Allergies Allergy/AdvReac Type Severity Reaction Status Date / Time Penicillins Allergy Severe Verified 04/01/21 11:42 ibuprofen Allergy Intermediate Verified 04/01/21 11:42 codeine Allergy Dyspnea / Verified 04/01/21 11:42 SOB Review of Systems Constitutional: Constitutional: Reports fatigue ENT: Denies sore throat Cardiovascular: Cardiovascular: Reports chest pain Respiratory: Respiratory: Reports dyspnea Gastrointestinal: Gastrointestinal: Reports nausea Genitourinary: Genitourinary: Reports no additional male genitourinary complaints PMFSH Past Medical History Medical History Acute respiratory failure Atrial fibrillation Cardiomyopathy Community acquired pneumonia COPD (chronic obstructive pulmonary disease) Elevated brain natriuretic peptide (BNP) level Fentanyl use disorder, mild, abuse Septic shock Streptococcus pneumoniae pneumonia Systolic heart failure Social History Social History Alcohol intake: current Drinks per week: 5 Substance use: never Gender identity (if verbalized by the patient): Male Spiritual care concerns: No Exam Const: General: no acute distress Nutritional Appearance: well nourished Orientation/consciousness: patient oriented x3 Other: Sleeping HENMT: Head: normal to inspection Eyes: Pupils: Equal, round and reactive pupils present Neck: Neck: normal visual inspection Resp: Effort & Inspection: normal respiratory effort Auscultation: wheezes Cardio: Rate: regular rate Rhythm: regular rhythm GI: GI Palp: Yes Soft to palpation and No Tenderness to palpation present (GI) Skin: Other: Mild hyperemia to bilateral ankles Neuro: General: patient oriented x3, moves all extremities and no focal motor deficits Speech: normal speech Gait exam (Neuro): Normal gait present Extrem: General: edema bilateral (2+ BLE ) Psych: Appearance: grossly normal Mental Status: mental status grossly normal Course Vital Signs Vital signs: Vital Signs Temperature 37.1 C 05/09/21 03:49 Pulse Rate 92 05/09/21 03:49 Respiratory Rate 14 05/09/21 03:49 Blood Pressure 158/85 H 05/09/21 03:49 Pulse Oximetry 96 05/09/21 03:49 Temperature 37.1 C 05/09/21 03:49 Pulse Rate 72 05/09/21 10:40 Respiratory Rate 16 05/09/21 10:40 Blood Pressure 115/74 05/09/21 10:40 Pulse Oximetry 100 05/09/21 10:40 MDM - Extremity Injury (Lower) MDM Narrative Medical decision making narrative: It seems that he only came to the hospital to avoid being arrested. He does have swelling to the bilateral feet and ankles. No DVT. Unlikely cellulitis given distribution and no leukocytosis. He most likely has this due to cardiomyopathy and medication noncompliance. I will prescribe a short course of lasix and encourage that he follow up as I am sure he was advised when he left the hospital. Medical Records Attestation: I reviewed the patient's medical records. Lab Data Attestation: I reviewed the patient's lab results
[2021-05-09 07:19] VITALS: BP 151/85; PULSE 90; RESP 18; O2SAT 97
--- NOTE | 2021-05-09 10:39 | PC.NURSE ---
[facility] informed pt ready for discharge. Per dispatch, officer would be out for patient.
[2021-05-09 10:40] VITALS: BP 115/74; PULSE 72; RESP 16; O2SAT 100
== END 2021-05-09 11:15 | disposition home or self-care (01) ==
PROVIDERS: General Practice; Emergency Provider Emergency Medicine
DX: R60.0 Localized edema (principal); I48.91 Unspecified atrial fibrillation; I42.9 Cardiomyopathy, unspecified; J44.9 Chronic obstructive pulmonary disease, unspecified; I50.20 Unspecified systolic (congestive) heart failure; Z87.01 Personal history of pneumonia (recurrent)
CPT/HCPCS: 36415; 71046; 80048; 83880; 84484; 85025; 85610; 85730; 93005; 93970; 99284